=== PATIENT | female | born 1935 | race Caucasian/White ===

== ENCOUNTER → 2016-12-17 | Outpatient (CLI) | payer OTHER, MEDICARE ==
[~2016-12-17] MED LIST: ACET600C PO; ALPR-412 PO; AMINTAB13 PO; ARTICHOKE PO; ASCO1CAP3 PO; B-COTAB18 PO; BIOT1TAB5 PO; BOSWELIA PO; BUTCHERS BROOM PO; CALC600T9 PO; CETI10TA84 PO; CHLO10CA7 PO; CHOLINE PO; COEN100C7 PO; COLL1CAP PO; CYAN500T13 PO; DICY10CA12 PO; DICY20TA10 PO; ESTER C PO; EYEBRIGHT PO; FOLIC ACID PO; GARL10007 PO; GINK60TA2 PO; GLUCOSAMINE PO; HAWTHORN PO; HRBLS PO; INOS500T PO; INULIN PO; LACT1CAP6 PO; LECITHIN PO; LUTE20TA PO; MAGNESIUM PO; MELATAB2 PO; MELO7.5T5 PO; METH-736 PO; MILK1CAP9 PO; MISCCAP77 PO; MISCTAB PO; MULT-506 PO; MULT-513 PO; OMEG10002 PO; OXYC-57 PO; PANT500T PO; POTASSIUM PO; PSEU30TA64 PO; PSEU60TA80 PO; PSYL1POW4 PO; PSYL28.310 PO; PSYL48.59 PO; PYRI100T4 PO; S AD PO; SELENIUM PEG; THYROID ENERGY PO; TURM500C2 PO; VITACAP37 PO; VITAMIN D3 PO; VNTHFA/IN INH; [UNRECOGNIZED DRUG - CODE] PO; [UNRECOGNIZED DRUG - CODE] PO; [UNRECOGNIZED DRUG - CODE] PO; [UNRECOGNIZED DRUG - OTHER] PO; [UNRECOGNIZED DRUG - OTHER] PO; [UNRECOGNIZED DRUG - OTHER] PO; [UNRECOGNIZED DRUG - OTHER] PO
== END | disposition home or self-care (01) ==
LOC: C.LABSPEC 11:57
PROVIDERS: ATTEND Internal Medicine
DX: N39.0 Urinary tract infection, site not specified (principal)

== ENCOUNTER → 2017-01-17 | Outpatient (CLI) | payer OTHER, MEDICARE | END | disposition home or self-care (01) | LOC: C.PAPS 15:12 | PROVIDERS: ATTEND Internal Medicine | DX: Z12.4 Encounter for screening for malignant neoplasm of cervix (principal) ==

== ENCOUNTER → 2017-01-20 | Outpatient (CLI) | payer OTHER, MEDICARE | END | disposition home or self-care (01) | LOC: C.LABSPEC 12:34 | PROVIDERS: ATTEND Internal Medicine | DX: Z12.11 Encounter for screening for malignant neoplasm of colon (principal) ==

== ENCOUNTER 2017-01-26 15:07 | Emergency (ER) | payer OTHER, MEDICARE ==
[~2017-01-26] VITALS: Ht 157.5 cm; Wt 73.8 kg
[~2017-01-26 15:07] MED LIST changes: -ACET600C PO; -ALPR-412 PO; -AMINTAB13 PO; -ARTICHOKE PO; -ASCO1CAP3 PO; -B-COTAB18 PO; -BIOT1TAB5 PO; -BOSWELIA PO; -BUTCHERS BROOM PO; -CALC600T9 PO; -CHLO10CA7 PO; -CHOLINE PO; -COEN100C7 PO; -COLL1CAP PO; -CYAN500T13 PO; -DICY10CA12 PO; -ESTER C PO; -EYEBRIGHT PO; -FOLIC ACID PO; -GARL10007 PO; -GINK60TA2 PO; -GLUCOSAMINE PO; -HAWTHORN PO; -HRBLS PO; -INOS500T PO; -INULIN PO; -LACT1CAP6 PO; -LECITHIN PO; -LUTE20TA PO; -MAGNESIUM PO; -MELATAB2 PO; -METH-736 PO; -MILK1CAP9 PO; -MISCCAP77 PO; -MISCTAB PO; -MULT-506 PO; -MULT-513 PO; -OMEG10002 PO; -OXYC-57 PO; -PANT500T PO; -POTASSIUM PO; -PSEU30TA64 PO; -PSEU60TA80 PO; -PSYL28.310 PO; -PSYL48.59 PO; -PYRI100T4 PO; -S AD PO; -SELENIUM PEG; -THYROID ENERGY PO; -TURM500C2 PO; -VITACAP37 PO; -VITAMIN D3 PO; -VNTHFA/IN INH; -[UNRECOGNIZED DRUG - CODE] PO; -[UNRECOGNIZED DRUG - CODE] PO; -[UNRECOGNIZED DRUG - CODE] PO; -[UNRECOGNIZED DRUG - OTHER] PO; -[UNRECOGNIZED DRUG - OTHER] PO; -[UNRECOGNIZED DRUG - OTHER] PO; -[UNRECOGNIZED DRUG - OTHER] PO
[2017-01-26 15:22] VITALS: TEMP 37; Ht 157.5 cm; Wt 73.8 kg
--- NOTE | 2017-01-26 17:08 | EMERGENCY ROOM VISIT NOTE ---
History Report prepared by Kings: Mady Perez Under the Supervision of: Dr. Nate Jennings M.D. First contact with patient: 16:49 Chief Complaint: ABDOMINAL PAIN Stated Complaint: LOWER ABD. PAIN Nursing Triage Summary: reports I have a hernia and icreased pain and bloating started today at noon, denies NV History of Present Illness The patient is an 81 year old female who presents to the Emergency Room with complaints of worsening abdominal pain with onset today, five hours ago. She rates her discomfort as a 7/10. The patient notes that she has a femoral hernia and is concerned that the abdominal pain could be due to the hernia. She relates that she has a history of Irritable Bowel Syndrome and states that this abdominal pain could be related to this. The patient denies vomiting, fevers, blood in her stool, diarrhea. Source of History: patient Onset: 5 hours ago Position: abdomen Quality: other (abdominal pain) Timing: worsening Associated Symptoms: No diarrhea, No fevers, No melena, No vomiting Review of Systems See HPI for pertinent positives & negatives. A total of 10 systems reviewed and were otherwise negative. Past Medical & Surgical Medical Problems: (1) Cystocele (2) IBS (irritable bowel syndrome) (3) partial SBO Family History No pertinent family history Social History Smoking Status: Never Smoker Marital Status: Housing Status: lives with family Occupation Status: retired Current/Historical Medications Scheduled Cetirizine (Zyrtec), 10 MG PO DAILY Dicyclomine Hcl (Dicyclomine Hcl), 1 CAP PO BID Herbals (Herbals), Unknown Dose PO DAILY Lactobacillus (Probiotic), 1 CAP PO DAILY Multivitamins/Minerals (Mvi With Minerals), 1 TAB PO DAILY Psyllium (Metamucil Smooth Texture), 1 PKT PO DAILY Scheduled PRN Meloxicam (Mobic), 15 MG PO DAILY PRN for Pain Pseudoephedrine-Guaifenesin (Mucinex D), 1 TAB PO BID PRN for CONGESTION Allergies Coded Allergies: Gluten (Verified Allergy, Mild, GI ISSUES, 01/26/17) Lactose (Verified Allergy, Unknown, GI ISSUES, 01/26/17) Physical Exam Vital Signs Date Time Temp Pulse Resp B/P Pulse Ox O2 Delivery O2 Flow Rate FiO2 01/26/17 18:02 66 16 129/74 97 01/26/17 16:58 77 18 143/76 95 Room Air 01/26/17 15:22 37.0 77 18 166/95 95 Room Air Physical Exam GENERAL: Smiling, in mild distress, uncomfortable appearing. HEENT: No acute trauma, normocephalic atraumatic, mucous membranes moist, no nasal congestion, no scleral icterus. NECK: No stridor, no adenopathy, no meningismus, trachea is midline. LUNGS: No dyspnea. Clear to auscultation and equal bilaterally. No wheeze, no rhonchi. HEART: Regular rate and rhythm. No murmurs, rubs, gallops appreciated. ABDOMEN: Soft, bowel sounds positive, no peritonitis. Firm right inguinal hernia with tenderness to palpation, no overlying erythema, reduced with mild difficulty and complete resolution of symptoms. BACK: No midline tenderness, no CVA tenderness EXTREMITIES: Normal motion all extremities, no cyanosis, no edema. NEUROLOGIC: Alert and oriented, no acute motor or sensory deficits, no focal weakness, cranial nerves grossly intact. SKIN: No rash, no jaundice, no diaphoresis. Medical Decision & Procedures ER Provider Diagnostic Interpretation: X ray results are stated below per my interpretation and the radiologist's interpretation. ABDOMEN 2VIEW W/PA CHEST RTN CLINICAL HISTORY: right fem hernia pain, now resolved, minimal BMs pain COMPARISON STUDY: 10/02/2016 FINDINGS: Lungs are clear. Bowel pattern is nonobstructive. Increased fecal load throughout the ascending and transverse colonic regions. Multiple pelvic vascular calcifications. IMPRESSION: 1. Nonobstructive bowel pattern. 2. Increased fecal load throughout the colon. 3. Negative chest. Electronically signed by: Neptali Loza M.D. 01/26/2017 5:28 PM Dictated Date/Time: 01/26/2017 5:28 PM ED Course 1652: The patient was evaluated in room A11. A complete history and physical exam was performed. 1735: I reevaluated the patient; she feels fine and is having no pain. She asked me to call Dr. Kendrick, her PCP, to let him know that she was evaluated in the ED. 1740: I discussed the case with Dr. Kendrick ([facility]); he advised that the patient can go home. 1745: Reevaluated the patient. Discussed results and discharge instructions: She verbalized understanding and agreement. The patient is ready for discharge. Medical Decision 81 yr old female arrives with right lower abdominal pain with return of recurrent inguinal/femoral hernia. Admits hernia stuck last 12-24 hours. With Trendelenburg position able to easily reduce hernia without need for pain meds. No further symptoms. No evidence obstruction on imaging. No blood in stool. No further symptoms. She is feeling well and wishes to go home. PCP aware and will help facilitate gen surg eval. Discussed home care and symptoms/ findings requiring return. Consults Time Called: 1735 Consulting Physician: Dr. Kendrick ([facility]) Returned Call: 1740 I discussed the case with Dr. Kendrick ([facility]); he advised that the patient can go home. Impression Primary Impression: Reducible right inguinal hernia Additional Impression: Recurrent right inguinal hernia Scribe Attestation The scribe's documentation has been prepared under my direction and personally reviewed by me in its entirety. I confirm that the note above accurately reflects all work, treatment, procedures, and medical decision making performed by me. Departure Information Dispostion Home / Self-Care Referrals Luis Champion M.D. (PCP) Patient Instructions ED Hernia Inguinal, My [facility] Additional Instructions Follow up with your Primary Provider tomorrow to discuss further plans. Problem Qualifiers
[2017-01-26] MEDS ORDERED: PSEU60TA80 PO (17:11)
[2017-01-26] MEDS ORDERED: MULT-513 PO (17:11)
[2017-01-26] MEDS ORDERED: DICY10CA12 PO (17:11)
[2017-01-26] MEDS ORDERED: PSYL28.310 PO (17:11)
[2017-01-26] MEDS ORDERED: HRBLS PO (17:11)
[2017-01-26] MEDS ORDERED: LACT1CAP6 PO (17:11)
--- NOTE | 2017-01-26 17:30 | DIAGNOSTIC IMAGING REPORT ---
ABDOMEN 2VIEW W/PA CHEST RTN CLINICAL HISTORY: right fem hernia pain, now resolved, minimal BMs pain COMPARISON STUDY: 10/02/2016 FINDINGS: Lungs are clear. Bowel pattern is nonobstructive. Increased fecal load throughout the ascending and transverse colonic regions. Multiple pelvic vascular calcifications. IMPRESSION: 1. Nonobstructive bowel pattern. 2. Increased fecal load throughout the colon. 3. Negative chest. Electronically signed by: Neptali Loza M.D. 01/26/2017 5:28 PM Dictated Date/Time: 01/26/2017 5:28 PM
[2017-01-26 18:02] VITALS: BP 129/74; PULSE 66; O2SAT 97
[2017-02-13] MEDS ORDERED: MULT-506 PO (09:21)
[2017-02-13] MEDS ORDERED: [UNRECOGNIZED DRUG - CODE] PO (09:21)
[2017-02-13] MEDS ORDERED: B-COTAB18 PO (09:21)
[2017-02-13] MEDS ORDERED: CYAN500T13 PO (09:21)
[2017-02-13] MEDS ORDERED: PYRI100T4 PO (09:21)
[2017-02-13] MEDS ORDERED: VITACAP37 PO (09:24)
[2017-02-13] MEDS ORDERED: CHOLINE PO (09:24)
[2017-02-13] MEDS ORDERED: ASCO1CAP3 PO (09:24)
[2017-02-13] MEDS ORDERED: BIOT1TAB5 PO (09:24)
[2017-02-13] MEDS ORDERED: ESTER C PO (09:24)
[2017-02-13] MEDS ORDERED: VITAMIN D3 PO (09:24)
[2017-02-13] MEDS ORDERED: INOS500T PO (09:25)
[2017-02-13] MEDS ORDERED: FOLIC ACID PO (09:25)
[2017-02-13] MEDS ORDERED: PANT500T PO (09:25)
[2017-02-13] MEDS ORDERED: BOSWELIA PO (09:29)
[2017-02-13] MEDS ORDERED: SELENIUM PEG (09:29)
[2017-02-13] MEDS ORDERED: ARTICHOKE PO (09:29)
[2017-02-13] MEDS ORDERED: CALC600T9 PO (09:29)
[2017-02-13] MEDS ORDERED: BUTCHERS BROOM PO (09:29)
[2017-02-13] MEDS ORDERED: [UNRECOGNIZED DRUG - OTHER] PO (09:29)
[2017-02-13] MEDS ORDERED: MAGNESIUM PO (09:29)
[2017-02-13] MEDS ORDERED: POTASSIUM PO (09:29)
[2017-02-13] MEDS ORDERED: AMINTAB13 PO (09:29)
[2017-02-13] MEDS ORDERED: COEN100C7 PO (09:30)
[2017-02-13] MEDS ORDERED: TURM500C2 PO (09:30)
[2017-02-13] MEDS ORDERED: [UNRECOGNIZED DRUG - CODE] PO (09:30)
[2017-02-13] MEDS ORDERED: MISCTAB PO (09:30)
[2017-02-13] MEDS ORDERED: [UNRECOGNIZED DRUG - OTHER] PO (09:34)
[2017-02-13] MEDS ORDERED: GLUCOSAMINE PO (09:34)
[2017-02-13] MEDS ORDERED: GINK60TA2 PO (09:34)
[2017-02-13] MEDS ORDERED: HAWTHORN PO (09:34)
[2017-02-13] MEDS ORDERED: COLL1CAP PO (09:34)
[2017-02-13] MEDS ORDERED: GARL10007 PO (09:34)
[2017-02-13] MEDS ORDERED: OMEG10002 PO (09:34)
[2017-02-13] MEDS ORDERED: EYEBRIGHT PO (09:34)
[2017-02-13] MEDS ORDERED: INULIN PO (09:39)
[2017-02-13] MEDS ORDERED: MISCCAP77 PO (09:39)
[2017-02-13] MEDS ORDERED: MILK1CAP9 PO (09:39)
[2017-02-13] MEDS ORDERED: METH-736 PO (09:39)
[2017-02-13] MEDS ORDERED: LECITHIN PO (09:39)
[2017-02-13] MEDS ORDERED: LUTE20TA PO (09:39)
[2017-02-13] MEDS ORDERED: ACET600C PO (09:39)
[2017-02-13] MEDS ORDERED: MELATAB2 PO (09:39)
[2017-02-13] MEDS ORDERED: [UNRECOGNIZED DRUG - OTHER] PO (09:39)
[2017-02-13] MEDS ORDERED: [UNRECOGNIZED DRUG - OTHER] PO (09:40)
[2017-02-13] MEDS ORDERED: [UNRECOGNIZED DRUG - CODE] PO (09:40)
[2017-02-13] MEDS ORDERED: S AD PO (09:40)
[2017-02-13] MEDS ORDERED: PSEU30TA64 PO (09:44)
[2017-02-13] MEDS ORDERED: ALPR-412 PO (09:44)
[2017-02-13] MEDS ORDERED: CHLO10CA7 PO (09:44)
[2017-02-13] MEDS ORDERED: PSYL48.59 PO (09:44)
[2017-02-13] MEDS ORDERED: VNTHFA/IN INH (09:50)
== END 2017-01-26 17:52 | disposition home or self-care (01) ==
LOC: C.EDB 15:08 → C.EDA 17:52
DX: K40.91 Unilateral inguinal hernia, without obstruction or gangrene, recurrent (principal); K58.9 Irritable bowel syndrome, unspecified; Z79.899 Other long term (current) drug therapy

== ENCOUNTER → 2017-02-10 | Outpatient (CLI) | payer OTHER, MEDICARE ==
[~2017-02-10] MED LIST changes: +ACET600C PO; +ALPR-412 PO; +AMINTAB13 PO; +ARTICHOKE PO; +ASCO1CAP3 PO; +B-COTAB18 PO; +BIOT1TAB5 PO; +BOSWELIA PO; +BUTCHERS BROOM PO; +CALC600T9 PO; +CHLO10CA7 PO; +CHOLINE PO; +COEN100C7 PO; +COLL1CAP PO; +CYAN500T13 PO; +DICY10CA12 PO; -DICY20TA10 PO; +ESTER C PO; +EYEBRIGHT PO; +FOLIC ACID PO; +GARL10007 PO; +GINK60TA2 PO; +GLUCOSAMINE PO; +HAWTHORN PO; +HRBLS PO; +INOS500T PO; +INULIN PO; +LACT1CAP6 PO; +LECITHIN PO; +LUTE20TA PO; +MAGNESIUM PO; +MELATAB2 PO; +METH-736 PO; +MILK1CAP9 PO; +MISCCAP77 PO; +MISCTAB PO; +MULT-506 PO; +MULT-513 PO; +OMEG10002 PO; +OXYC-57 PO; +PANT500T PO; +POTASSIUM PO; +PSEU30TA64 PO; +PSEU60TA80 PO; -PSYL1POW4 PO; +PSYL28.310 PO; +PSYL48.59 PO; +PYRI100T4 PO; +S AD PO; +SELENIUM PEG; +THYROID ENERGY PO; +TURM500C2 PO; +VITACAP37 PO; +VITAMIN D3 PO; +VNTHFA/IN INH; +[UNRECOGNIZED DRUG - CODE] PO; +[UNRECOGNIZED DRUG - CODE] PO; +[UNRECOGNIZED DRUG - CODE] PO; +[UNRECOGNIZED DRUG - OTHER] PO; +[UNRECOGNIZED DRUG - OTHER] PO; +[UNRECOGNIZED DRUG - OTHER] PO; +[UNRECOGNIZED DRUG - OTHER] PO
--- NOTE | 2017-02-10 14:01 | MAMMOGRAPHY REPORT ---
BILATERAL DIGITAL DIAGNOSTIC MAMMOGRAM TOMOSYNTHESIS WITH CAD AND TARGETED LEFT ULTRASOUND: 02/10/2017 CLINICAL HISTORY: 81-year-old woman presents for follow-up of a small subcentimeter visible and palp able mass in the 11:00 to 12:00 left breast. Also annual bilateral screening mammogram. TECHNIQUE: Bilateral CC and MLO 2-D digital and tomosynthesis images were obtained. Current study w as also evaluated with a Computer Aided Detection (CAD) system. COMPARISON: Comparison is made to exams dated: 08/26/2016 mammogram, 08/26/2016 ultrasound, 02/23/20 16 ultrasound, 02/16/2016 ultrasound, 02/16/2016 mammogram, and 02/07/2016 mammogram - [facility]. BREAST COMPOSITION: There are scattered areas of fibroglandular density in both breasts. FINDINGS: There are scattered stable benign-appearing rounded punctate microcalcifications in the br easts. A 7 mm asymmetry in the upper outer middle one third of the left breast appears similar dati ng back to at least 01/25/2013 and 01/17/2011, therefore likely benign. A small circumscribed lobul ated 7.4 x 6.3 x 7.4 mm mass is again identified in the upper outer middle one third of the left favian ast (CC slice 41, MLO slice 46), that has not significantly changed comparing to the prior exam. No new suspicious mass, architectural distortion or cluster of microcalcifications is seen bilaterally . Repeat targeted ultrasound was performed in the area of palpable and visible mass in the 11:00 left breast. A parallel slightly hypoechoic lobulated subdermal mass is again seen measuring 6.4 x 2.4 x 4.2 mm. When comparing back to the 02/16/2016 ultrasound it appears minimally changed, although th is could be due to technical measuring technique. Prior measurements were 5.9 x 4.9 mm. No other s uspicious solid or cystic mass is seen in the upper outer quadrant of the left breast. IMPRESSION: ACR-BI-RADS CATEGORY 3: PROBABLY BENIGN, TARGETED ULTRASOUND ACR-BI-RADS CATEGORY 3: [place] OBABLY BENIGN 1. Stable bilateral mammograms, including a 6.3 x 7.4 mm lobulated mass in the left upper outer coy drant, which correlates with a visible and palpable mass that the patient has felt for a number of y ears. Given slight differences in technique, this does not appear significantly increased in size c omparing back to 02/16/2016 and this most likely benign. Differential considerations include a vasc ular malformation such as a hemangioma or a papilloma. Nevertheless, another 12 month diagnostic fo llow-up is recommended given the slight interval increase comparing back to more remote mammograms f rom 2008. These results and recommendations were discussed with the patient at the time of the exam. She tent atively scheduled a follow-up appointment prior to leaving the department. Approximately 10% of breast cancers are not detected with mammography. A negative mammographic repor t should not delay biopsy if a clinically suggestive mass is present. Natalie Luz M.D. ay/:02/10/2017 12:46:47 Fitting Room Maintenance Mechanic: Eleonora Eckert, [facility] letter sent: Follow Up Recommended 3 BI-RADS Code: ACR-BI-RADS Category 3: Probably Benign Ultrasound BI-RADS: ACR-BI-RADS Category 3: P robably Benign
== END | disposition home or self-care (01) ==
LOC: C.MAMM 09:39
PROVIDERS: ATTEND Internal Medicine
DX: Z09 Encounter for follow-up examination after completed treatment for conditions other than malignant neoplasm (principal); N63 Unspecified lump in breast

== ENCOUNTER 2017-02-27 07:05 | Day surgery (SDC) | payer OTHER, MEDICARE ==
[2017-02-13 09:46] VITALS: BMI 29.0
--- NOTE | 2017-02-13 10:09 | PAT Medication Instructions ---
Service Date Feb 13, 2017. Current Home Medication List Acetylcysteine (Nutrient) (Nac), 600 MG PO QAM Albuterol Hfa (Ventolin Hfa), 2-4 PUFFS INH Q6H Alprazolam (Alprazolam), 1 TAB PO HS Amino Acids (Amino Acids Complex), 1,000 MG PO QAM Ascorbic Acid (Vitamin C), 500 MG PO QAM B-Complex Vitamins (Vitamin B Complex), 1 TAB PO QPM Beta Carotene (Beta Carotene), 15,000 UNITS PO QAM Bioflavonoids ([place] Bioflavonoids), 1,000 MG PO QAM Biotin (Biotin), 1,500 MCG PO QAM Calcium Carbonate-Vitamin D (Calcium + D), 1 TAB PO BID Cetirizine (Zyrtec), 10 MG PO HS Chlordiazepoxide (Librium), 10 MG PO TID PRN for RN Coenzyme Q10 (Ubidecarenone) (Coq10), 100 MG PO QPM Maebkayf-Sxuyprtrjoq-Peqstecou (Hyaluronic Acid), 200 MG PO BID Cyanocobalamin (Vitamin B12 500MCG), 500 MCG PO QAM Dicyclomine Hcl (Dicyclomine Hcl), 1 CAP PO BID Garlic (Garlic), 1,000 MG PO BID Ginkgo Biloba (Ginkgo), 60 MG PO BID Inositol (Inositol), 500 MG PO QPM Lutein (Lutein), 20 MG PO QAM Melatonin (Melatonin Maximum Strengt), 10 MG PO HS Meloxicam (Mobic), 15 MG PO DAILY PRN for Pain Methylsulfonylmethane (Msm), 1,000 MG PO QAM Milk Thistle (Silybum Marianum (Milk Thistle), 1,000 MG PO BID Misc Natural Products (Dmg), 200 MG PO QAM Multivitamin (Multivitamin), 1 TAB PO QPM [place]-3 Fatty Acids (Fish Oil), 1,000 MG PO BID Pantothenic Acid (Pantothenic Acid), 500 MG PO QPM Probiotic Product (Probiotic & Acidophilus F), 1,000 MG PO BID Pseudoephedrine Hcl (Sudafed), 30 MG PO QAM Psyllium (Metamucil), 1 DOSE PO QPM Pyridoxine (Vitamin B6), 50 MG PO QAM Quercetin (Quercetin), 1,000 MG PO QAM S-Adenosylmethionine (Juan-E), 400 MG PO QAM Turmeric (Curcuma Longa) (Curcumin 95), 500 MG PO BID Vitamin E (E-400), 400 UNITS PO QPM [Aakd], 3,000 MCG PO QAM [Artichoke], 1 TAB PO BID [Boswelia], 500 MG PO BID [Butchers Broom], 500 MG PO BID [Choline], 250 MG PO QPM [Enzymes For Gluten], 1 TAB PO TIDM [Isabel C], 500 MG PO QAM [Eyebright], 500 MG PO BID [Folic Acid], 400 MCG PO QAM [Glucosamine], 750 MG PO BID [Marion], 500 MG PO BID [Inulin], 5 ML PO DAILY [Lecithin], 400 MG PO BID [Magnesium], 250 MG PO BID [Mesoglycan], 1 TAB PO DAILY [Potassium], 99 MG PO BID [Selenium], 200 MCG PEG QPM [Vein Straughn], 500 MG PO BID [Vitamin D3], 400 UNITS PO QAM Medication Instructions For Your Scheduled Surgery - Hold the following medications 2 weeks prior to surgery: S-Adenosylmethionine (Juan-E), 400 MG PO QAM Turmeric (Curcuma Longa) (Curcumin 95), 500 MG PO BID Vitamin E (E-400), 400 UNITS PO QPM [Aakd], 3,000 MCG PO QAM [Artichoke], 1 TAB PO BID [Boswelia], 500 MG PO BID [Butchers Broom], 500 MG PO BID [Choline], 250 MG PO QPM [Enzymes For Gluten], 1 TAB PO TIDM [Isabel C], 500 MG PO QAM [Eyebright], 500 MG PO BID [Glucosamine], 750 MG PO BID [Marion], 500 MG PO BID [Inulin], 5 ML PO DAILY [Lecithin], 400 MG PO BID [Mesoglycan], 1 TAB PO DAILY [Selenium], 200 MCG PEG QPM [Vein Straughn], 500 MG PO BID Quercetin (Quercetin), 1,000 MG PO QAM Coenzyme Q10 (Ubidecarenone) (Coq10), 100 MG PO QPM Bioflavonoids ([place] Bioflavonoids), 1,000 MG PO QAM Biotin (Biotin), 1,500 MCG PO QAM Acetylcysteine (Nutrient) (Nac), 600 MG PO QAM Jyxehhrb-Vqpgmapedge-Boftvqitm (Hyaluronic Acid), 200 MG PO BID Garlic (Garlic), 1,000 MG PO BID Ginkgo Biloba (Ginkgo), 60 MG PO BID Amino Acids (Amino Acids Complex), 1,000 MG PO QAM Methylsulfonylmethane (Msm), 1,000 MG PO QAM Milk Thistle (Silybum Marianum (Milk Thistle), 1,000 MG PO BID Misc Natural Products (Dmg), 200 MG PO QAM [place]-3 Fatty Acids (Fish Oil), 1,000 MG PO BID Pantothenic Acid (Pantothenic Acid), 500 MG PO QPM Inositol (Inositol), 500 MG PO QPM Lutein (Lutein), 20 MG PO QAM Cyanocobalamin (Vitamin B12 500MCG), 500 MCG PO QAM - Hold the following medications the morning of surgery: [Vitamin D3], 400 UNITS PO QAM [Potassium], 99 MG PO BID [Magnesium], 250 MG PO BID [Folic Acid], 400 MCG PO QAM Pyridoxine (Vitamin B6), 50 MG PO QAM Probiotic Product (Probiotic & Acidophilus F), 1,000 MG PO BID Ascorbic Acid (Vitamin C), 500 MG PO QAM Beta Carotene (Beta Carotene), 15,000 UNITS PO QAM Calcium Carbonate-Vitamin D (Calcium + D), 1 TAB PO BID Pseudoephedrine Hcl (Sudafed), 30 MG PO QAM Dicyclomine Hcl (Dicyclomine Hcl), 1 CAP PO BID Meloxicam (Mobic), 15 MG PO DAILY PRN for Pain (otherwise okay to continue per surgeon) - Take the following medications the morning of surgery with a sip of water OTHERWISE NOTHING TO EAT OR DRINK AFTER MIDNIGHT: Albuterol Hfa (Ventolin Hfa), 2-4 PUFFS INH Q6H (use if needed; BRING TO HOSPITAL) Chlordiazepoxide (Librium), 10 MG PO TID PRN - Take the following medications as scheduled the night before surgery: [Potassium], 99 MG PO BID B-Complex Vitamins (Vitamin B Complex), 1 TAB PO QPM Alprazolam (Alprazolam), 1 TAB PO HS Calcium Carbonate-Vitamin D (Calcium + D), 1 TAB PO BID Cetirizine (Zyrtec), 10 MG PO HS Psyllium (Metamucil), 1 DOSE PO QPM Albuterol Hfa (Ventolin Hfa), 2-4 PUFFS INH Q6H Multivitamin (Multivitamin), 1 TAB PO QPM Melatonin (Melatonin Maximum Strengt), 10 MG PO HS Dicyclomine Hcl (Dicyclomine Hcl), 1 CAP PO BID Chlordiazepoxide (Librium), 10 MG PO TID PRN Meloxicam (Mobic), 15 MG PO DAILY PRN for Pain If you have any questions please call us at [phone] or [phone] or [phone]
[2017-02-13 10:50] LABS: BASO % 0.7 %; BASO ABS # 0.04 K/uL (0-0.2); COMPLETE YES; EOS % 4.3 %; HEMATOCRIT 37.7 % (37-47); IG% 0.2 %; LYMPH ABS # 2.05 K/uL (1.2-3.4); MEAN CELL VOLUME 94.3 fL (80-100); MEAN CORPUSCULAR HEMOGLOBIN 31.8 pg (25-34); MEAN CORPUSCULAR HGB CONC 33.7 g/dl (32-36); MEAN PLATELET VOLUME 11.1 fL (7.4-10.4); NEUT % 53.8 %; PLATELET COUNT 232 K/uL (130-400); WHITE BLOOD COUNT 6.03 K/uL (4.8-10.8)
[2017-02-13 11:34] LABS: BUN/CREATININE RATIO 43.3 (10-20); CALCIUM 9.9 mg/dl (8.5-10.1); CREATININE 0.81 mg/dl (0.60-1.20); POTASSIUM 5.1 mmol/L (3.5-5.1)
[~2017-02-27] VITALS: Ht 157.5 cm; Wt 73.5 kg
[~2017-02-27 07:05] MED LIST changes: +FENTANYL CITRATE INJ 50 MCG/1 ML 2 ML VIAL ONE; -HRBLS PO; -LACT1CAP6 PO; +LACTATED RINGER'S 1000ML 1,000 ML IV SCH; +MIDAZOLAM HCL 1 MG/ML 2ML VIAL ONE; -MULT-513 PO; -OXYC-57 PO; -PSEU60TA80 PO; -PSYL28.310 PO; -THYROID ENERGY PO
[2017-02-27] MEDS ORDERED: BACITRACIN 50000 UNIT VIAL ONE (07:10)
[2017-02-27] MEDS ORDERED: BUPIVACAINE 0.5 % 5 MG/1 ML MPF 30ML VIAL ONE ×2 (07:10→09:03)
[2017-02-27 08:09] VITALS: BP 149/72; PULSE 69; TEMP 36.6; O2SAT 97; Ht 157.5 cm; Wt 73.5 kg
--- NOTE | 2017-02-27 08:17 | History & Physical Bridge Note ---
H&P Re-Evaluation Bridge Note: I have examined the patient, reviewed the History & Physical and in the interval since the performance of the History & Physical I have noted the following changes of clinical significance: No changes noted pt marked, friend will be here later to pick her up
[2017-02-27] MEDS ORDERED: LIDOCAINE HCL 2% 2 ML VIAL (20MG/ML) ONE (08:24)
[2017-02-27] MEDS ORDERED: PROPOFOL IV EMULSION 10 MG/ML 20 ML VIAL IV ONE (08:24)
[2017-02-27] MEDS ORDERED: ATROPINE SULFATE 0.1 MG/ML 5ML SYR IV PRN (08:30)
[2017-02-27] MEDS ORDERED: PHENYLEPHRINE 100MCG/ML 5ML SYR IV PRN (08:30)
[2017-02-27] MEDS ORDERED: EpHEDrine SULFATE INJ 50 MG/ML AMP IV PRN (08:30)
[2017-02-27] MEDS ORDERED: HYDROmorphone INJ 2 MG/ML SYR/VIAL IV PRN (08:30)
[2017-02-27] MEDS ORDERED: ONDANSETRON INJ 2 MG/ML 2 ML VIAL IV PRN ×2 (08:30→09:45)
[2017-02-27] MEDS ORDERED: CEFAZOLIN SOD 1 GM VIAL ONE (08:58)
[2017-02-27] MEDS ORDERED: SODIUM CHLORIDE 0.9% 1000ML 1,000 ML IV SCH (09:39)
--- NOTE | 2017-02-27 09:40 | [facility] Post Operative Brief Note ---
Immediate Operative Summary Operative Date Feb 27, 2017. Pre-Operative Diagnosis Right Femoral Hernia Post-Operative Diagnosis Right incarcerated femoral hernia Procedure(s) Performed Right femoral hernia repair with Mesh marlex(plug) Lew Geronimo repair Surgeon Dr Whitten Grain Cleaner And Transfer Operator Surgeon(s) Radha Abbott PA-C Estimated Blood Loss 5ml Findings incarcerated right fem hernia Specimens A. Right incarcerated femoral hernia Anesthesia .5% marcaine plai (10cc) and iv sedation
[2017-02-27] MEDS ORDERED: OXYC-57 PO (09:42)
[2017-02-27] MEDS ORDERED: OXYCODONE/ACETAMINOPHEN 5-325 TAB PO PRN ×2 (09:45)
--- NOTE | 2017-02-27 09:46 | Discharge Instructions ---
Discharge Instructions Date of Service Feb 27, 2017. Admission Reason for Admission: Femoral Hernia Discharge Discharge Diagnosis / Problem: Femoral Hernia. Discharge Goals Goal(s): Decrease discomfort, Improve function Activity Recommendations Activity Limitations: as noted below Lifting Limitations: no more than 10 pounds Exercise/Sports Limitations: until after follow-up appointment May Resume Sexual Activity: after follow-up appointment Shower/Bathe: tomorrow Driving or Machine Use: resume 3 days after discharge . Instructions / Follow-Up Instructions / Follow-Up Please call the office to schedule an appointment to have your christoph removed in 1 week at [phone]. Any questions or concerns please call the office at [phone]. Current Hospital Diet Patient's current hospital diet: Discharge Diet Recommended Diet: Regular Diet Procedures Procedures Performed: Right femoral hernia repair with Mesh marlex(plug) Mc Vay repair Pending Studies Studies pending at discharge: no Medical Emergencies . Who to Call and When: Medical Emergencies: If at any time you feel your situation is an emergency, please call 911 immediately. . Non-Emergent Contact Non-Emergency issues call your: Primary Care Provider, Surgeon Call Non-Emergent contact if: temperature is above 101.5, your pain is not controlled, wound has increased drainage, wound has increased redness . "Provider Documentation" section prepared by Radha Abbott. . VTE Core Measure Inpt VTE Proph given/why not?: SCD's
--- NOTE | 2017-02-27 09:54 | Anesthesiology Progress Note ---
Anesthesia Post Op Note Date & Time Feb 27, 2017 at 09:53 Vital Signs Pain Intensity: 0 Vital Signs Past 12 Hours Date Time Temp Pulse Resp B/P Pulse Ox O2 Delivery O2 Flow Rate FiO2 02/27/17 09:45 68 17 125/64 95 Room Air 02/27/17 09:37 36.9 69 14 131/61 98 Mask 10 02/27/17 08:09 36.6 69 20 149/72 97 Room Air Notes Mental Status: alert / awake / arousable, participated in evaluation Pt Amnestic to Procedure: Yes Nausea / Vomiting: adequately controlled Pain: adequately controlled Airway Patency, RR, SpO2: stable & adequate BP & HR: stable & adequate Hydration State: stable & adequate Anesthetic Complications: no major complications apparent Pt doing well.
[2017-02-27 10:00] VITALS: BP 118/57; PULSE 64; TEMP 36.3; O2SAT 98
--- NOTE | 2017-02-27 10:19 | OPERATIVE REPORT ---
DATE OF OPERATION: 02/27/2017 SURGEON: Dr. Whitten. BUTADIENE COMPRESSOR OPERATOR: Radha Abbott PA-C. PREOPERATIVE DIAGNOSIS: Incarcerated right femoral hernia. POSTOPERATIVE DIAGNOSIS: Same. PROCEDURE: Repair of incarcerated femoral hernia with Marlex mesh plug (Naveen repair). SUMMARY: The patient was brought into the operating room theater under IV sedation. The right groin area was prepped with Betadine scrubbing solution and properly draped. Systemic antibiotics were given. 0.5% Marcaine without epinephrine was used to infiltrate at the ilioinguinal area and underneath the external oblique. Therefore, more local was used just above the inguinal crease, sufficient enough to make about a 3-inch incision. We went through subcutaneous tissue, the patient had significant amount of redundant panniculus in that area with some prominent venous plexuses in the subcutaneous tissue, which we ligated with 2-0 silk. Then, we went on to the external oblique fascia right at the shelving portion area, we could identify the inguinal ligament. Tissue around that area and down in the fossa ovalis was dissected out, and the patient had a well-delineated golf size tissue that was consistent and coming through the femoral canal. I tried to reduce it completely but I was unable, therefore, we placed some hemostats and opened it up and we were in the femoral hernia, and distal to that, there was some incarcerated tissue that we resected. Once we had sufficiently removed this tissue, then I closed the hernial sac with a running chromic suture and returned it in the retroperitoneal area. At this point, I was able to identify Basim's ligament and also the shelving portion of the ligament. The defect was as expected in the appropriate area. I elected to take a sheet of Marlex mesh. We took 2 cm circular area, cut it out, centrally I placed a chromic suture, then placed this into the canal using the chromic suture to hold that while we then used 0 Prolene suture to close the defect in a Naveen type of fashion, taking bites of the Basim's ligament and shelving portion of the inguinal ligament. I only used about 2 sutures and that was apparently sufficient. The bites of the suture were all to incorporate part of the tip of this mesh that we had placed in there to keep it from moving. Once repair appeared to be satisfactory, I made a knot, tied the femoral canal too much. We then removed the chromic suture. The area was checked for hemostasis and appeared satisfactory. More local was used into the wound and the wound was closed with 3-0 Vicryl suture in a continuous fashion and christoph for skin edges. Dressing was applied. The procedure was tolerated well by the patient, was taken to recovery room in good condition. I attest to the content of the Intraoperative Record and any orders documented therein. Any exceptions are noted below. STEVEND
[2017-02-27 10:30] VITALS: BP 99/55; PULSE 61; TEMP 36.3; O2SAT 98
[2017-02-27 11:30] VITALS: BP 113/62; PULSE 64; TEMP 36.5; O2SAT 98
[2017-02-27 12:00] VITALS: BP 116/57; PULSE 67; TEMP 36.3; O2SAT 99
== END 2017-02-27 12:15 | disposition home or self-care (01) ==
LOC: C.ACU 07:05
PROVIDERS: ATTEND Surgery
DX: K41.30 Unilateral femoral hernia, with obstruction, without gangrene, not specified as recurrent (principal); H40.9 Unspecified glaucoma; Z87.891 Personal history of nicotine dependence; Z79.899 Other long term (current) drug therapy

== ENCOUNTER 2017-03-02 10:58 | Emergency (ER) | payer OTHER, MEDICARE ==
[~2017-03-02] VITALS: Ht 154.9 cm; Wt 75.0 kg
[~2017-03-02 10:58] MED LIST changes: -FENTANYL CITRATE INJ 50 MCG/1 ML 2 ML VIAL ONE; -LACTATED RINGER'S 1000ML 1,000 ML IV SCH; -MIDAZOLAM HCL 1 MG/ML 2ML VIAL ONE; +OXYC-57 PO
[2017-03-02 11:14] VITALS: TEMP 36.8; Ht 154.9 cm; Wt 75.0 kg
[2017-03-02] MEDS ORDERED: THYROID ENERGY PO (11:38)
--- NOTE | 2017-03-02 11:52 | DIAGNOSTIC IMAGING REPORT ---
RIGHT KNEE 3 VIEWS HISTORY: Right knee pain. COMPARISON: None. FINDINGS: There is no fracture or dislocation. Small knee effusion. Mild patellofemoral osteoarthritis. Small tricompartmental marginal osteophytes. No radiopaque foreign bodies. IMPRESSION: No fractures. Small knee effusion. Electronically signed by: Meng Evans M.D. 03/02/2017 11:50 AM Dictated Date/Time: 03/02/2017 11:49 AM
--- NOTE | 2017-03-02 12:37 | EMERGENCY ROOM VISIT NOTE ---
ED Visit Note First contact with patient: 11:31 Chief Complaint: RIGHT Knee Pain, Can't put Weight on it History of Present Illness: Patient is an 82-year-old female who presents to the emergency department this morning for evaluation of her RIGHT knee pain. She reports that on Friday while and bleeding down the steps, she noticed pain to the posterior aspect of the affected knee. She is had progressively worsening pain with ambulation over the last several days. Yesterday, she felt as though her knee twisted. Since then she has had worsening pain. This morning, she had so much pain that she was contacted EMS. She has increasing pain with relation. She denies any numbness or tingling into the distal tremor. She rates her current discomfort as a 3/10. Patient denies any hip pain, low back pain, ankle pain, for pain, loss of control bowel/ bladder, or saddle anesthesia. She has been using her Percocet for her recent RIGHT inguinal hernia repair with moderate relief of symptoms. Patient has an appointment with Dr. Lentz tomorrow in regards to the affected knee. Medications: Reviewed and discussed with the patient. Allergies: Gluten, lactose, NSAIDs PMH: No pertinent past medical history. SHx: Patient is an 82-year-old female who lives locally. ROS: All pertinent positive and negative review of systems are appropriately documented in the History of Present Illness. Physical Exam: VITAL SIGNS - Vital signs and nursing notes were reviewed. GENERAL - 82-year-old female appearing her stated age and in noticeable discomfort throughout the exam. MUSCULOSKELETAL - RIGHT knee with slight joint effusion. No erythema or ecchymosis. Mild tenderness to palpation appreciated over the lateral aspect of the affected joint. +3/5 strength appreciated RIGHT versus left secondary to patient discomfort. No posterior sag sign. RANGE OF MOTION: 90 Flexion with 0 Extension. PATELLAR APPREHENSION TEST: Unremarkable. VARUS/VALGUS STRESS: Lateral pain with medial force. NEUROLOGIC/VASCULAR - Neurovascularly intact distally with +3/5 dorsalis pedis pulses palpated bilaterally. Normal sensation to light and sharp touch appreciated distally. IMAGING: RIGHT KNEE 3 VIEWS HISTORY: Right knee pain. COMPARISON: None. FINDINGS: There is no fracture or dislocation. Small knee effusion. Mild patellofemoral osteoarthritis. Small tricompartmental marginal osteophytes. No radiopaque foreign bodies. IMPRESSION: No fractures. Small knee effusion. RIGHT LOWER EXTREMITY VENOUS DOPPLER HISTORY: Right leg pain. COMPARISON STUDY: None. FINDINGS: There is normal compressibility, flow, and augmentation within the right lower extremity deep venous system. IMPRESSION: No DVT within the right lower extremity ED Course: Patient was seen and evaluated by myself. X-ray had been obtained prior to my evaluation. Patient declines a think for pain in the emergency department. Ultrasound of the RIGHT lower extremity was pain and found be unremarkable. Imaging results were reviewed with the patient who acknowledges understanding. She was provided a knee immobilizer and walker for comfort. She feels much better and more stable on her knee. She has appointment tomorrow with orthopedic surgery. She'll keep this appointment. She was provided a prescription for Percocet No. 8 to be used for breakthrough pain and she will return for any changing or worsening symptoms. Patient discharged home in good condition. In the evaluation and treatment of this patient, the following differential diagnoses were considered: Patellar Fracture, Tibial Plateau Fracture, Distal Femur Fracture, ACL Injury, PCL Injury, Collateral Ligament Injury, Pes Anserine Bursitis, Maisonneuve Fracture. Impression: RIGHT Knee Pain Discharge Instructions: You have been treated in the Emergency Department for Knee Pain. You have been prescribed Percocet to be used for pain control. This is a narcotic medication. You cannot drive or consume alcohol while on this medicine. This medicine should only be used for pain that cannot be controlled with denm-yim-gfwlxlv pain medicines. For pain control, you can use the following yvzx-ygb-gkotinf medicines (if >12 yo): - Regular strength (325mg/tab) Tylenol (acetaminophen) 2 tabs every 4-6 hours as needed. Do not exceed 12 tablets in a 24 hour period. Avoid taking more than 4 grams (4000 mg) of Tylenol per day. This includes any other sources of acetaminophen you may take on a regular basis. - Regular strength (200 mg/tab) Advil (ibuprofen) 1-2 tabs every 4-6 hours as needed. Do not exceed a dose of 3200 mg per day. If this is a recent injury (<24 hrs), ice can be applied to the area of pain for the first 3 days to help decrease pain and inflammation. Ice massages can be performed by freezing water in a paper cup, peeling back the cup to expose the ice and then massaging over the affected area. Keep your appointment with your orthopedic surgeon tomorrow. Keep the knee brace in place until cleared by Orthopedics. Use the walker you have been provided to help with ambulation. Return to the Emergency Department if your current symptoms worsen despite treatment course outlined above. Problem List Medical Problems: (1) Cystocele Status: Resolved (2) IBS (irritable bowel syndrome) Status: Chronic Current/Historical Medications Scheduled Acetylcysteine (Nutrient) (Nac), 600 MG PO QAM Albuterol Hfa (Ventolin Hfa), 2-4 PUFFS INH Q6H Alprazolam (Alprazolam), 1 TAB PO HS Amino Acids (Amino Acids Complex), 1,000 MG PO QAM Ascorbic Acid (Vitamin C), 500 MG PO QAM B-Complex Vitamins (Vitamin B Complex), 1 TAB PO QPM Beta Carotene (Beta Carotene), 15,000 UNITS PO QAM Bioflavonoids ([place] Bioflavonoids), 1,000 MG PO QAM Biotin (Biotin), 1,500 MCG PO QAM Calcium Carbonate-Vitamin D (Calcium + D), 1 TAB PO BID Cetirizine (Zyrtec), 10 MG PO HS Coenzyme Q10 (Ubidecarenone) (Coq10), 100 MG PO QPM Ybtapudu-Lckrcmgmcoo-Uacanocyh (Hyaluronic Acid), 200 MG PO BID Cyanocobalamin (Vitamin B12 500MCG), 500 MCG PO QAM Dicyclomine Hcl (Dicyclomine Hcl), 1 CAP PO BID Ginkgo Biloba (Ginkgo), 60 MG PO BID Inositol (Inositol), 500 MG PO QPM Lutein (Lutein), 20 MG PO QAM Melatonin (Melatonin Maximum Strengt), 10 MG PO HS Methylsulfonylmethane (Msm), 1,000 MG PO QAM Milk Thistle (Silybum Marianum (Milk Thistle), 1,000 MG PO BID Misc Natural Products (Dmg), 200 MG PO QAM Multivitamin (Multivitamin), 1 TAB PO QPM [place]-3 Fatty Acids (Fish Oil), 1,000 MG PO BID Pantothenic Acid (Pantothenic Acid), 500 MG PO QPM Probiotic Product (Probiotic & Acidophilus F), 1,000 MG PO BID Pseudoephedrine Hcl (Sudafed), 30 MG PO QAM Psyllium (Metamucil), 1 DOSE PO QPM Pyridoxine (Vitamin B6), 50 MG PO QAM Quercetin (Quercetin), 1,000 MG PO QAM S-Adenosylmethionine (Juan-E), 400 MG PO QAM Turmeric (Curcuma Longa) (Curcumin 95), 500 MG PO BID Vitamin E (E-400), 400 UNITS PO QPM [Aakd], 3,000 MCG PO QAM [Artichoke], 1 TAB PO BID [Boswelia], 500 MG PO BID [Butchers Broom], 500 MG PO BID [Choline], 250 MG PO QPM [Enzymes For Gluten], 1 TAB PO TIDM [Isabel C], 500 MG PO QAM [Eyebright], 500 MG PO BID [Folic Acid], 400 MCG PO QAM [Glucosamine], 750 MG PO BID [[place]], 500 MG PO BID [Inulin], 5 ML PO DAILY [Lecithin], 400 MG PO BID [Magnesium], 250 MG PO BID [Mesoglycan], 1 TAB PO DAILY [Potassium], 99 MG PO BID [Selenium], 200 MCG PEG QPM [Thyroid Energy], 2 TABS PO QAM [Vein [place]], 500 MG PO BID [Vitamin D3], 400 UNITS PO QAM Scheduled PRN Chlordiazepoxide (Librium), 10 MG PO TID PRN for RN Meloxicam (Mobic), 15 MG PO DAILY PRN for Pain Oxycodone/Acetaminophen 5MG/325MG (Percocet 5MG/325MG), 1-2 TABLETS PO Q4H PRN for Pain Oxycodone/Acetaminophen 5MG/325MG (Percocet 5MG/325MG), 1-2 TABS PO Q4 PRN for Pain Allergies Coded Allergies: Gluten (Verified Allergy, Mild, GI ISSUES, 03/02/17) Lactose (Verified Allergy, Unknown, GI ISSUES, 03/02/17) NSAIDs (Verified Allergy, Unknown, STOMACH IRRITATION, 03/02/17) Vital Signs Date Time Temp Pulse Resp B/P Pulse Ox O2 Delivery O2 Flow Rate FiO2 03/02/17 15:17 86 18 168/82 95 03/02/17 14:10 89 20 154/72 94 Room Air 03/02/17 11:14 36.8 87 17 157/79 92 Room Air Departure Information Impression Primary Impression: Knee pain Dispostion Home / Self-Care Condition GOOD Prescriptions Oxycodone/Acetaminophen 5MG/325MG (PERCOCET 5MG/325MG) Tab 1-2 TABS PO Q4 Y for Pain, #8 TAB For Initial Treatment Prov: Ambrose Hill PA-C 03/02/17 Referrals Luis Champion M.D. (PCP) En Lentz M.D. Patient Instructions My [facility] Additional Instructions You have been treated in the Emergency Department for Knee Pain. You have been prescribed Percocet to be used for pain control. This is a narcotic medication. You cannot drive or consume alcohol while on this medicine. This medicine should only be used for pain that cannot be controlled with kqty-bdi-porfutf pain medicines. For pain control, you can use the following kofv-ihy-pzcqdou medicines (if >12 yo): - Regular strength (325mg/tab) Tylenol (acetaminophen) 2 tabs every 4-6 hours as needed. Do not exceed 12 tablets in a 24 hour period. Avoid taking more than 4 grams (4000 mg) of Tylenol per day. This includes any other sources of acetaminophen you may take on a regular basis. - Regular strength (200 mg/tab) Advil (ibuprofen) 1-2 tabs every 4-6 hours as needed. Do not exceed a dose of 3200 mg per day. If this is a recent injury (<24 hrs), ice can be applied to the area of pain for the first 3 days to help decrease pain and inflammation. Ice massages can be performed by freezing water in a paper cup, peeling back the cup to expose the ice and then massaging over the affected area. Keep your appointment with your orthopedic surgeon tomorrow. Keep the knee brace in place until cleared by Orthopedics. Use the walker you have been provided to help with ambulation. Return to the Emergency Department if your current symptoms worsen despite treatment course outlined above. Problem Qualifiers Primary Impression: Knee pain Laterality: right Chronicity: acute Qualified Codes: M25.561 - Pain in right knee
--- NOTE | 2017-03-02 13:51 | DIAGNOSTIC IMAGING REPORT ---
RIGHT LOWER EXTREMITY VENOUS DOPPLER HISTORY: Right leg pain. COMPARISON STUDY: None. FINDINGS: There is normal compressibility, flow, and augmentation within the right lower extremity deep venous system. IMPRESSION: No DVT within the right lower extremity Electronically signed by: Meng Evans M.D. 03/02/2017 1:49 PM Dictated Date/Time: 03/02/2017 1:49 PM
[2017-03-02] MEDS ORDERED: OXYC-57 PO (14:55)
[2017-03-02 15:17] VITALS: BP 168/82; PULSE 86; O2SAT 95
== END 2017-03-02 15:18 | disposition home or self-care (01) ==
LOC: C.EDB 10:59 → C.EDD 15:18
DX: M25.561 Pain in right knee (principal); K58.9 Irritable bowel syndrome, unspecified; Z79.899 Other long term (current) drug therapy

== ENCOUNTER → 2017-10-23 | Outpatient (CLI) | payer OTHER, MEDICARE ==
[~2017-10-23] MED LIST changes: -GARL10007 PO; -OXYC-57 PO; +THYROID ENERGY PO
[2017-10-23 16:05] LABS: BASO % 0.4 %; BASO ABS # 0.03 K/uL (0-0.2); COMPLETE YES; EOS % 4.2 %; HEMATOCRIT 40.5 % (37-47); IG% 0.3 %; LYMPH % 38.6 %; LYMPH ABS # 2.66 K/uL (1.2-3.4); MEAN CELL VOLUME 96.4 fL (80-100); MEAN CORPUSCULAR HEMOGLOBIN 31.7 pg (25-34); MEAN CORPUSCULAR HGB CONC 32.8 g/dl (32-36); MEAN PLATELET VOLUME 11.4 fL (7.4-10.4); MONO % 7.4 %; NEUT % 49.1 %; PLATELET COUNT 266 K/uL (130-400); WHITE BLOOD COUNT 6.89 K/uL (4.8-10.8)
[2017-10-23 16:12] LABS: ALT/SGPT 30 U/L (12-78); AST/SGOT 25 U/L (15-37); BLOOD UREA NITROGEN 28 mg/dl (7-18); BUN/CREATININE RATIO 34.4 (10-20); CALCIUM 9.3 mg/dl (8.5-10.1); CARBON DIOXIDE 26 mmol/L (21-32); CHLORIDE 107 mmol/L (98-107); CHOLESTEROL 218 mg/dl (0-200); CREATININE 0.82 mg/dl (0.60-1.20); GLUCOSE 75 mg/dl (70-99); SODIUM 139 mmol/L (136-145); TRIGLYCERIDES 79 mg/dl (0-150); VERY LOW DENSITY LIPOPROT CALC 16 mg/dl
[2017-10-23 16:14] LABS: ALB/GLOB RATIO 0.9 (0.9-2); ALKALINE PHOSPHATASE 78 U/L (45-117); CHOLESTEROL/HDL RATIO 2.8; HDL CHOLESTEROL 79 mg/dl
[2017-10-23 16:17] LABS: URINE APPEARANCE CLEAR (CLEAR); URINE BILIRUBIN NEG (NEG); URINE COLOR YELLOW; URINE NITRITE NEG (NEG); URINE PH 5.5 (4.5-7.5); URINE SPECIFIC GRAVITY 1.014 (1.000-1.030); UROBILINOGEN NEG (NEG)
[2017-10-23 16:22] LABS: MANUAL MICROSCOPIC REQUIRED? NO; REVIEW REQ? NO
[2017-10-24 07:01] LABS: ESTIMATED AVERAGE GLUCOSE 108 mg/dl; HA1C FLAG Normal (Normal)
== END | disposition home or self-care (01) ==
LOC: C.LABSPEC 15:31
PROVIDERS: ATTEND Internal Medicine
DX: I10 Essential (primary) hypertension (principal); T78.40XA Allergy, unspecified, initial encounter; X58.XXXA Exposure to other specified factors, initial encounter; J06.9 Acute upper respiratory infection, unspecified; E78.5 Hyperlipidemia, unspecified; R73.9 Hyperglycemia, unspecified

== ENCOUNTER → 2018-02-02 | Outpatient (CLI) | payer OTHER, MEDICARE ==
[2018-02-02 18:14] LABS: GLUCOSE,FASTING 85 mg/dl (70-99)
[2018-02-02 18:21] LABS: CHOLESTEROL 192 mg/dl (0-200); LDL CHOLESTEROL (DIRECT) 109 mg/dl
== END | disposition home or self-care (01) ==
LOC: C.LABSPEC 16:47
PROVIDERS: ATTEND Internal Medicine
DX: Z00.01 Encounter for general adult medical examination with abnormal findings (principal); R53.83 Other fatigue; E78.5 Hyperlipidemia, unspecified

== ENCOUNTER → 2018-02-13 | Outpatient (CLI) | payer OTHER, MEDICARE ==
--- NOTE | 2018-02-13 15:38 | MAMMOGRAPHY REPORT ---
BILATERAL DIGITAL DIAGNOSTIC MAMMOGRAM TOMOSYNTHESIS WITH CAD AND TARGETED LEFT ULTRASOUND: 02/13/2018 CLINICAL HISTORY: The patient presents for short interval follow-up of a left breast mass which has b een visible and palpable for years. TECHNIQUE: Breast tomosynthesis in addition to standard 2D mammography was performed. Current study was also evaluated with a Computer Aided Detection (CAD) system. Bilateral CC and MLO 2D and tomosyn thesis images were obtained. COMPARISON: Comparison is made to exams dated: 02/10/2017 ultrasound, 02/10/2017 mammogram, 08/26/2016 m ammogram, 08/26/2016 ultrasound, 02/23/2016 ultrasound, and 02/16/2016 ultrasound - [facility]. BREAST COMPOSITION: There are scattered areas of fibroglandular density in both breasts. FINDINGS: Again noted is a lobulated circumscribed 8 mm mass within the left breast at approximately 12:00, not significantly changed when accounting for positioning differences dating back to the February 2016 exam. The remainder of both breasts are stable compared to prior exams, without suspicious mas ses, calcifications, or areas of architectural distortion noted. Scattered bilateral benign-appearin g calcifications are not significantly changed. Nodular 7 mm asymmetry within the left superior alex[address] st middle depth on the MLO view is stable compared to multiple prior exams. Targeted ultrasound was performed of the area of the previously seen left breast mass. In the left b reast at 11:00, 4 cm from the nipple, again noted is a subtle slightly hypoechoic lobulated subdermal mass which measures 8 x 3 x 4 mm. The mass is not significantly changed when accounting for differe nces in measurement technique dating back to the February 2016 exam. This corresponds with the stable m ammographic mass. On clinical exam the lump is palpable and there is bluish discoloration of the ove rlying skin. Given the stability and benign morphology on imaging, the mass is considered benign and likely represents a hemangioma. IMPRESSION: ACR BI-RADS CATEGORY 2: BENIGN, TARGETED ULTRASOUND ACR BI-RADS CATEGORY 2: BENIGN Lobulated 8 mm mass in the left 11:00 breast is stable mammographically and sonographically dating ba ck to at least the February 2016 exam, and is considered benign given the stability and likely represent s a hemangioma. There is no mammographic or targeted sonographic evidence of malignancy. As the ma ss is palpable and visible on the skin, recommend continued clinical follow-up. Also recommend routi ne bilateral screening mammograms in one year. The patient has been verbally notified of the results. Approximately 10% of breast cancers are not detected with mammography. A negative mammographic report should not delay biopsy if a clinically suggestive mass is present. Aleshia Ron M.D. ah/:02/13/2018 10:11:05 Packaging Manager: Ila TORRES(Alvarez)([place]), [facility] letter sent: Normal 1/2 BI-RADS Code: ACR BI-RADS Category 2: Benign Ultrasound BI-RADS: ACR BI-RADS Category 2: Benign
--- NOTE | 2018-02-18 07:11 | CODING QUERY NO DIAGNOSIS ---
TREATMENT RENDERED WITHOUT A DIAGNOSIS Dr. Nguyen To promote full compliance with coding requirements relating to patient care, physician participation is requested in all cases of sales service professional uncertainty. Please assist us with providing a diagnosis/symptom for the test(s) below: A diagnosis/symptom was not documented on your Order. A valid diagnosis/symptom is required to bill all insurances. Please remember that we are unable to code a diagnosis of rule out, probable, possible, questionable, or suspected. Tests that require a diagnosis: * BILATERAL DIAG TOMOSYNTHESIS DIAGNOSIS: * DIAGNOSTIC MAMMO W CAD DIAGNOSIS: * ULTRASOUND BREAST LIMITED DIAGNOSIS: DATE OF SERVICE: 02/13/18 Provider Signature: Date: Thank you Axel Reza [facility] Information Management Once completed, please kindly fax back to [phone] For questions please call [phone]
== END | disposition home or self-care (01) ==
LOC: C.MAMM 09:03
PROVIDERS: ATTEND Internal Medicine
DX: N63.21 Unspecified lump in the left breast, upper outer quadrant (principal)

== ENCOUNTER → 2018-02-26 | Outpatient (CLI) | payer OTHER, MEDICARE ==
[2018-03-02 18:07] LABS: FECAL OCCULT BLOOD #1 NEGATIVE (NEGATIVE); FECAL OCCULT BLOOD #2 NEGATIVE (NEGATIVE); FECAL OCCULT BLOOD #3 NEGATIVE (NEGATIVE)
== END | disposition home or self-care (01) ==
LOC: C.LABSPEC 17:28
PROVIDERS: ATTEND Internal Medicine
DX: Z12.11 Encounter for screening for malignant neoplasm of colon (principal)

== ENCOUNTER → 2018-03-02 | Outpatient (CLI) | payer OTHER, MEDICARE | END | disposition home or self-care (01) | LOC: C.LABSPEC 17:26 | PROVIDERS: ATTEND Internal Medicine | DX: E55.9 Vitamin D deficiency, unspecified (principal) ==

== ENCOUNTER 2021-04-03 06:53 | Observation (INO) ==
--- NOTE | 2021-02-07 10:12 | PAT Medication Instructions ---
Medication Instructions Date of Service February 07, 2021 Home Medications Metamucil 1 tbsp PO DAILY Mucinex 1,200 mg PO QAM albuterol sulfate [Ventolin HFA] 2 puff INHALATION QID PRN aspirin 81 mg PO QAM meloxicam 15 mg PO HS pseudoephedrine HCl [Sudafed 12 Hour] 120 mg PO Q12H PRN Aakd (No2) 1 dose PO QAM Amino Acid 1,000 mg PO QAM Bioflavonoids, [place] 1,000 mg PO QAM Biotin 1,500 mcg PO QAM [place] 500 mg PO BID Mathematics Department Chair's Broom 500 mg PO BID Choline 250 mg PO QAM Curcumin 500 mg MISCELLANEOUS QAM Dmg 200 mg PO QAM Enzyme (For Gluten, Gas, Lactose) 1 dose PO AC Isabel-C with Bioflavonoids 1 tab PO QAM Eyebright 500 mg PO BID Hyaluronic Acid (chond-collgn) 200 mg PO BID Inulin 1 tsp PO UD MSM 1,000 mg PO BID Mature Multivitamin 1 dose PO DAILY Mesoglycan 50 mg PO BID Probiotic 1 tab PO BID Quercetin 2 tab PO QAM Juan-E 400 mg PO QAM Vein [place] (Prickly Marty+) 500 mg PO BID Vitamin B-100 1 dose PO QPM Vitamin B6 50 mg PO QAM acetylcysteine [NAC] 600 mg PO QAM ascorbic acid (vitamin C) [Vitamin C] 500 mg PO QAM beta carotene 15,000 unit PO QAM calcium carbonate-vitamin D3 [Calcium 500 + D] 1 tab PO QAM cholecalciferol (vitamin D3) [Vitamin D3] 2,000 unit PO BID coQ10 (ubiquinol) 100 mg PO QPM folic acid 0.4 mg PO QAM garlic 1,000 mg PO BID ginkgo biloba 60 mg PO BID glucosamine sulfate [Glucosamine] 750 mg PO BID [place] 1 cap PO BID inositol 500 mg PO QPM lecithin, soy 400 mg PO BID lutein 20 mg PO QAM magnesium 250 mg PO BID melatonin 10 mg PO HS milk thistle 1,000 mg PO BID omega 9-yrs-hdp-fish oil [Fish Oil] 1 cap PO BID pantothenic acid (vit B5) 500 mg PO QPM selenium 200 mcg PO QPM turmeric root extract 500 mg PO QAM vitamin G45-ebckl acid 1 tab PO QAM vitamin E 400 unit PO QAM cetirizine [Zyrtec] 10 mg PO HS montelukast [Singulair] 10 mg PO QAM STOP taking 2 weeks before surgery (or as soon as possible if surgery is within 2 weeks) Aakd (No2) 1 dose PO QAM Amino Acid 1,000 mg PO QAM Bioflavonoids, [place] 1,000 mg PO QAM [place] 500 mg PO BID Mathematics Department Chair's Broom 500 mg PO BID Choline 250 mg PO QAM Curcumin 500 mg MISCELLANEOUS QAM Dmg 200 mg PO QAM Enzyme (For Gluten, Gas, Lactose) 1 dose PO AC Isabel-C with Bioflavonoids 1 tab PO QAM Eyebright 500 mg PO BID Hyaluronic Acid (chond-collgn) 200 mg PO BID Inulin 1 tsp PO UD MSM 1,000 mg PO BID Mature Multivitamin 1 dose PO DAILY Mesoglycan 50 mg PO BID Quercetin 2 tab PO QAM Juan-E 400 mg PO QAM Vein [place] (Prickly Marty+) 500 mg PO BID acetylcysteine [NAC] 600 mg PO QAM beta carotene 15,000 unit PO QAM coQ10 (ubiquinol) 100 mg PO QPM garlic 1,000 mg PO BID ginkgo biloba 60 mg PO BID glucosamine sulfate [Glucosamine] 750 mg PO BID [place] 1 cap PO BID inositol 500 mg PO QPM lecithin, soy 400 mg PO BID lutein 20 mg PO QAM magnesium 250 mg PO BID selenium 200 mcg PO QPM turmeric root extract 500 mg PO QAM vitamin E 400 unit PO QAM DO NOT take the morning of surgery Metamucil 1 tbsp PO DAILY Mucinex 1,200 mg PO QAM pseudoephedrine HCl [Sudafed 12 Hour] 120 mg PO Q12H PRN Biotin 1,500 mcg PO QAM Probiotic 1 tab PO BID Vitamin B6 50 mg PO QAM ascorbic acid (vitamin C) [Vitamin C] 500 mg PO QAM calcium carbonate-vitamin D3 [Calcium 500 + D] 1 tab PO QAM cholecalciferol (vitamin D3) [Vitamin D3] 2,000 unit PO BID folic acid 0.4 mg PO QAM magnesium 250 mg PO BID vitamin F41-paipw acid 1 tab PO QAM montelukast [Singulair] 10 mg PO QAM Take morning of surgery With a small sip of water, OTHERWISE NOTHING TO EAT OR DRINK AFTER MIDNIGHT: albuterol sulfate [Ventolin HFA] 2 puff INHALATION QID PRN (use if needed; please bring rescue inhaler with you to hospital day of surgery if possible) aspirin 81 mg PO QAM acetylcysteine [NAC] 600 mg PO QAM Take evening before surgery albuterol sulfate [Ventolin HFA] 2 puff INHALATION QID PRN (if needed) pseudoephedrine HCl [Sudafed 12 Hour] 120 mg PO Q12H PRN (if needed) Probiotic 1 tab PO BID cholecalciferol (vitamin D3) [Vitamin D3] 2,000 unit PO BID magnesium 250 mg PO BID melatonin 10 mg PO HS cetirizine [Zyrtec] 10 mg PO HS Other Notes If you have any questions please call us at [phone] or [phone] or [phone] or [phone]
--- NOTE | 2021-02-08 14:17 | Anesthesiology Consultation ---
Date of Service February 08, 2021 Assessment & Plan (1) Encounter for pre-operative examination: - COVID screening: Per assessment on 02/08: Travel screen negative, no known COVID-19 positive contacts or current COVID-19 related symptoms. Patient is fully vaccinated. Surgeon arranging preop COVID testing. Awaiting results. - Hx spinal headache: questions addressed. Discussed SAB vs. GA. To discuss further AM DOS. - Medication instructions: To continue perioperatively unless told otherwise by surgeon/prescriber. 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 She was advised to hold 2 weeks prior to surgery. Patient voiced understanding. Patient taking NAC (acetylcysteine)- per Dr Haynes, recommendation to continue perioperatively. Patient made aware. Chart Review Chart Review: Acceptable Risk for Surgery (pending most recent PCP office visit note) and Patient seen in Pre Admission Testing Teaching & Discussion Pre-Anesthesia Teaching/Discussion Notes: Instructed NPO after midnight before surgery,except medications with 15 cc of water. Medication instructions provided according to the PAT guidelines. History Surgery Operation Date: 03/06/21 12:30 Proposed Procedures p Right Total Knee Arthroplasty - Brian Schilling MD Height/Weight Height: 5 ft 1 in Weight: 76.7 kg Allergies Allergy/AdvReac Type Severity Reaction Status Date / Time No Known Drug Allergies Allergy Uncoded 02/06/21 15:16 ENVIRONMENTAL ALLERGIES AdvReac Mild Congestion Uncoded 02/08/21 14:11 Medications Home Medications Medication Instructions Recorded Confirmed Last Taken Metamucil 1 tbsp PO DAILY 08/20/18 02/06/21 08/20/18 Mucinex 1,200 mg PO QAM 08/20/18 02/06/21 08/20/18 albuterol sulfate [Ventolin HFA] 2 puff INHALATION QID PRN 08/20/18 02/06/21 08/20/18 aspirin 81 mg PO QAM 08/20/18 02/06/21 08/24/18 meloxicam 15 mg PO HS 08/20/18 02/06/21 08/20/18 pseudoephedrine HCl [Sudafed 12 120 mg PO Q12H PRN 08/20/18 02/06/21 08/20/18 Hour] Aakd (No2) 1 dose PO QAM 08/21/18 02/06/21 08/13/18 Amino Acid 1,000 mg PO QAM 08/21/18 02/06/21 08/20/18 Bioflavonoids, Jennings 1,000 mg PO QAM 08/21/18 02/06/21 08/20/18 Biotin 1,500 mcg PO QAM 08/21/18 02/06/21 08/20/18 Boswellia 500 mg PO BID 08/21/18 02/06/21 08/20/18 Professional Security Officer's Broom 500 mg PO BID 08/21/18 02/06/21 08/20/18 Choline 250 mg PO QAM 08/21/18 02/06/21 08/20/18 Curcumin 500 mg MISCELLANEOUS QAM 08/21/18 02/06/21 08/20/18 Dmg 200 mg PO QAM 08/21/18 02/06/21 08/20/18 Enzyme (For Gluten, Gas, Lactose) 1 dose PO AC 08/21/18 02/06/21 08/20/18 Isabel-C with Bioflavonoids 1 tab PO QAM 08/21/18 02/06/21 08/20/18 Eyebright 500 mg PO BID 08/21/18 02/06/21 08/20/18 Hyaluronic Acid (chond-collgn) 200 mg PO BID 08/21/18 02/06/21 08/20/18 Inulin 1 tsp PO UD 08/21/18 02/06/21 08/20/18 MSM 1,000 mg PO BID 08/21/18 02/06/21 08/20/18 Mature Multivitamin 1 dose PO DAILY 08/21/18 02/06/21 08/20/18 Mesoglycan 50 mg PO BID 08/21/18 02/06/21 08/20/18 Probiotic 1 tab PO BID 08/21/18 02/06/21 08/20/18 Quercetin 2 tab PO QAM 08/21/18 02/06/21 08/20/18 Juan-E 400 mg PO QAM 08/21/18 02/06/21 08/20/18 Vein Winner (Prickly Marty+) 500 mg PO BID 08/21/18 02/06/21 08/20/18 Vitamin B-100 1 dose PO QPM 08/21/18 02/06/21 08/20/18 Vitamin B6 50 mg PO QAM 08/21/18 02/06/21 08/20/18 acetylcysteine [NAC] 600 mg PO QAM 08/21/18 02/06/21 08/13/18 ascorbic acid (vitamin C) [Vitamin 500 mg PO QAM 08/21/18 02/06/21 08/20/18 C] beta carotene 15,000 unit PO QAM 08/21/18 02/06/21 08/20/18 calcium carbonate-vitamin D3 1 tab PO QAM 08/21/18 02/06/21 08/20/18 [Calcium 500 + D] cholecalciferol (vitamin D3) 2,000 unit PO BID 08/21/18 02/06/21 08/20/18 [Vitamin D3] coQ10 (ubiquinol) 100 mg PO QPM 08/21/18 02/06/21 08/20/18 folic acid 0.4 mg PO QAM 08/21/18 02/06/21 08/22/18 garlic 1,000 mg PO BID 08/21/18 02/06/21 08/20/18 ginkgo biloba 60 mg PO BID 08/21/18 02/06/21 07/23/18 glucosamine sulfate [Glucosamine] 750 mg PO BID 08/21/18 02/06/21 08/20/18 hawthorn 1 cap PO BID 08/21/18 02/06/21 08/20/18 inositol 500 mg PO QPM 08/21/18 02/06/21 08/20/18 lecithin, soy 400 mg PO BID 08/21/18 02/06/21 08/20/18 lutein 20 mg PO QAM 08/21/18 02/06/21 08/20/18 magnesium 250 mg PO BID 08/21/18 02/06/21 08/20/18 melatonin 10 mg PO HS 08/21/18 02/06/21 08/22/18 milk thistle 1,000 mg PO BID 08/21/18 02/06/21 08/20/18 omega 1-snl-kat-fish oil [Fish Oil] 1 cap PO BID 08/21/18 02/06/21 08/20/18 pantothenic acid (vit B5) 500 mg PO QPM 08/21/18 02/06/21 08/20/18 selenium 200 mcg PO QPM 08/21/18 02/06/21 08/20/18 turmeric root extract 500 mg PO QAM 08/21/18 02/06/21 08/20/18 vitamin [id number] acid 1 tab PO QAM 08/21/18 02/06/21 08/20/18 vitamin E 400 unit PO QAM 08/21/18 02/06/21 08/20/18 cetirizine [Zyrtec] 10 mg PO HS 02/06/21 02/06/21 Unknown montelukast [Singulair] 10 mg PO QAM 02/06/21 02/06/21 Unknown [place] Ii 2 tab PO DAILY 02/08/21 Unknown Gi Revive 1 tsp PO DAILY 02/08/21 Unknown Neuro Mag 2 tab PO DAILY 02/08/21 Unknown Two Per Day 1 tab PO DAILY 02/08/21 Unknown Past Medical History Medical History Asthma Glaucoma Hearing deficit History of anemia History of GI bleed r/t plavix (since discontinued) Hyperlipidemia "borderline" Hypertension "borderline" IBS (irritable bowel syndrome) Osteoarthritis Stroke 07/2018 > no residual effects, plavix discontinued (hx GIB) SVT (supraventricular tachycardia) Episode SVT during 04/2020 stress test (lasting approximately 50 seconds) converting to SR with carotid massage Uterine fibroid Exercise / Class Metabolic Activity II 4-5 Yardwork/Stairs/Walk up hill (one flight of stairs (no chest pain, very mild/rare SOB)) Past Family History Family History Family/Other Family history of diabetes mellitus Other No family history of adverse response to anesthesia Past Surgical History Surgical History History of arthroscopy Right knee History of cataract surgery R/L History of colonoscopy History of gynecologic surgery Anterior cystocele repair History of herniorrhaphy History of surgical procedure on eye proper using laser R/L (for glaucoma) History of tonsillectomy History of tooth extraction Nasal polyps s/p excision Sigmoidoscopy exam Past Anesthesia History No Family Hx of Anesthesia Complications and Other (Spinal headache with delivery 50+ years ago) History of PONV No Hx of PONV and No Hx of Motion Sickness Social History Smoking Status: Never smoker Do You Dip or Chew Tobacco: No Hx Alcohol Use: Yes Alcohol type: wine alcohol intake frequency: a few times a month Hx Substance Use: No substance use type: does not use Review of Systems Patient states previously mentioned mild snoring but she is unaware. Patient denies palpitations. Patient denies chest pain, shortness of breath, dyspnea on exertion, fever, chills, cough, wheezing. Physical Exam Vital Signs VITALS BP 171/83 > (borderline BP under surveillance by PCP- Dr. Patrick Linda. Most recent comparison BP in [facility] 140/80 at 09/06/20 office visit) P 76 TEMP 98.2 SP02 96%RA RESP 16 PHYSICAL Full cervical extension range of motion. Full TMJ range of motion. TMD 3 finger breaths Mallampati Score 1 Dentition: intact, + implants (molars), several crown (all over) Lungs: clear throughout to auscultation Cardiac: regular rate and rhythm, no murmurs noted Spine: normal Carotid arteries: negative bruit Extremities: no edema Testing Laboratory Results 02/08/21 11:34 02/08/21 11:34 PT 10.3 Seconds (9.0-12.0) 02/08/21 11:34 INR 1.0 (0.9-1.1) 02/08/21 11:34 APTT 22.7 Seconds (21.0-31.0) 02/08/21 11:34 Blood Type A Negative 02/08/21 11:34 Antibody Screen NEGATIVE 02/08/21 11:34 Electrocardiogram Date: 05/01/20 Sinus rhythm at 72 bpm. First-degree AV block. Complete RBBB. Abnormal Q-wave (III, AVF), ST depression. > subsequent stress test done 05/08/20 Chest X-Ray Date: 02/08/21 FINDINGS: Cardiomediastinal and hilar silhouettes are within normal limits. Patient is mildly rotated on the lateral view. Calcific plaque of the thoracic aorta. No pneumothorax, pleural effusion, airspace consolidation or overt pulmonary edema. Bones of the chest appear grossly intact. IMPRESSION: No acute process. Stress Test Date: 05/04/20 Type: exercise Negative stress echo/exercise ECG for ischemia at 137% MPHR. Immediately into r ecovery, SVT occurred lasting approximately 50 seconds converting to sinus rhythm with carotid massage. Upon questioning, she admitted to palpitations. No chest pain. Fair exercise tolerance. EF 66 5%. Mild concentric LVH. No significant valvular disease.
--- NOTE | 2021-02-08 15:04 | XRay Report ---
XR chest Pre-admission PA/Lat HISTORY: 85 years-old Female pat preoperative exam. COMPARISON: Chest radiograph 07/29/2018 TECHNIQUE: PA and lateral views of the chest FINDINGS: Cardiomediastinal and hilar silhouettes are within normal limits. Patient is mildly rotated on the la teral view. Calcific plaque of the thoracic aorta. No pneumothorax, pleural effusion, airspace consol idation or overt pulmonary edema. Bones of the chest appear grossly intact. IMPRESSION: No acute process. ACT 112: Negative or not required by law. The above report was generated using voice recognition software. It may contain grammatical, syntax o r spelling errors. Electronically signed by: Jesus Palafox M.D. 02/08/2021 3:03 PM
[2021-02-08 15:13] LABS: Basophils # (auto) 0.02 K/uL (0-0.2); Basophils % (auto) 0.2 %; Eosinophils % (auto) 3.2 %; Hematocrit (blood only) 38.3 % (37-47); Hemoglobin 12.4 g/dL (12.0-16.0); Immature Granulocytes # (auto) 0.02 K/uL (0.00-0.02); Immature Granulocytes % (auto) 0.2 %; Lymphocytes # (auto) 3.23 K/uL (1.2-3.4); Lymphocytes % (auto) 34.6 %; Mean Corpuscular Hemoglobin 31.2 pg (25-34); Mean Corpuscular Hgb Conc 32.4 g/dL (32-36); Mean Corpuscular Volume 96.2 fL (80-100); Monocytes # (auto) 0.47 K/uL (0.11-0.59); Neutrophils % (auto) 56.8 %; Platelet Count 249 K/uL (130-400); RDW Coefficient of Variation 13.8 % (11.5-14.5); RDW Standard Deviation 48.9 fL (36.4-46.3); Red Blood Count 3.98 M/uL (4.2-5.4); White Blood Count 9.34 K/uL (4.8-10.8)
[2021-02-08 15:21] LABS: BUN Creatinine Ratio 38.8 (10-20); Calcium 9.8 mg/dl (8.5-10.1); Creatinine Clr Calc Pharmacy 50.3 ml/min; Est GFR (African American) 80.9; Est GFR (Non-African American) 69.8; Potassium 4.4 mmol/L (3.5-5.1)
[2021-02-08 15:25] LABS: Partial Thromboplastin Ratio 0.9; Partial Thromboplastin Time 22.7 Seconds (21.0-31.0); Prothrombin Time 10.3 Seconds (9.0-12.0)
--- NOTE | 2021-03-03 10:55 | History and Physical Report ---
DATE OF ADMISSION: 03/06/2021 CHIEF COMPLAINT: Bilateral knee pain and discomfort, right side greater than left. HISTORY OF PRESENT ILLNESS: The patient is an 86-year-old female who presents specifically for surgical treatment of her knees. She has got a long history of bilateral knee pain and discomfort that has gradually gotten worse over time. She had been followed by Dr. Lentz in the past. She had a right knee scope back in 2018, which did not help her at all. She has got chronic pain in both knees. It is global pain. The more she is up and on her knees, the more they hurt. She limps all the time, but increases as the day goes on. She has nighttime pain. She has failed conservative measures and would like to proceed with knee replacement. She was hoping to do both knees at the same time. Of note, the patient does have a history of stroke in the past with minimal residual symptoms. PAST MEDICAL HISTORY: 1. Hypertension. 2. Elevated cholesterol. 3. Mild obesity with BMI of 32. 4. Osteoarthritis. 5. Cerebrovascular disease. PAST SURGICAL HISTORY: Includes, 1. Right knee scope in [address] Lentz. 2. Nasal polyp removal. 3. Ear surgery. 4. Tonsillectomy. 5. Cataract surgery. 6. Glaucoma. ALLERGIES: None. CURRENT MEDICATIONS: Include, 1. Albuterol. 2. Amino acid supplement. 3. Bioflavonoids. 4. Vitamin C. 5. Aspirin 81 mg. 6. Probiotic. 7. Multiple supplements. 8. Vitamin D3. 9. Folic acid. 10. Garlic. 11. Insulin. 12. Lansoprazole. 13. Glucosamine. 14. Ginkgo biloba. 15. ____ 16. Losartan. 17. Lutein. 18. Magnesium. 19. Multivitamin. 20. Melatonin. 21. Meloxicam. 22. Mesoglycan. 23. Milk thistle. 24. Vitamin B5. 25. Potassium. 26. Sudafed. 27. Metamucil. 28. Vitamin B6. 29. Vitamin B 100. 30. Vitamin B12. 31. Turmeric. 32. Selenium. SOCIAL HISTORY: Significant for an 86-year-old female. She does not smoke. No significant alcohol intake. FAMILY HISTORY: Noncontributory. REVIEW OF SYSTEMS: Significant for some mini strokes without residual sequelae. Denies any chest pain or shortness of breath. No history of DVT or PE. No known bleeding problems. PHYSICAL EXAMINATION: GENERAL: Shows a pleasant elderly female. Looks to be in reasonably good health. HEENT: Benign. NECK: Supple, no lymphadenopathy. LUNGS: Clear to auscultation. HEART: Has a regular rate and rhythm. ABDOMEN: Soft, nontender, nondistended. EXTREMITIES: Grossly neurovascularly intact except as follows: Examination of the knees reveals the patient who ambulates independently. She has got varus alignment to both knees. Examination of the right knee reveals varus alignment. She has got bony hypertrophy medially. Range of motion about 10 degrees short of full extension to 110 degrees of flexion. There is no instability. No pain with hip motion. Examination of the left knee reveals fairly neutral to slight varus alignment. Small knee effusion. Range of motion 5-120. No instability. X-RAYS: X-rays of both knees reveal advanced bilateral knee DJD. She has got a complete loss of her medial joint space on the right knee. She has got cystic change in the medial tibial plateau. She does have some chondrocalcinosis. X-rays of the left knee reveal advanced lateral compartment DJD. ASSESSMENT: An 86-year-old female with advanced bilateral knee degenerative joint disease. She has failed conservative treatment. She was hoping to do both knees at the same time, but I do not think that is a good idea in someone of her age and underlying comorbidities as it increases the risk. The right knee is bothering her most and we will proceed with a right knee replacement. PLAN: We will take her to the operating room and do a right total knee replacement. The risks and benefits of this procedure were explained to the patient including but not limited to DVT, PE, , infection, neurological injury, vascular injury, bleeding problem, pain, limited range of motion, stiffness, failure to relieve her symptoms, incomplete relief of symptoms, need for further surgery in the future, etc. The patient understands and desires to proceed. Informed consent was obtained. She is hoping to be discharged to [facility] for a brief rehab stay. We did talk to her about holding some supplements and vitamins preoperatively for 2 weeks. Her daughter is going to come and stay with her when she is out of [facility]. We will plan DVT prophylaxis including TEDs, SCDs, and aspirin twice a day.
--- NOTE | 2021-04-02 08:13 | History and Physical Report ---
DATE OF ADMISSION: 04/03/2021 CHIEF COMPLAINT: Bilateral knee pain and discomfort, right side greater than left. More instability in left HISTORY OF PRESENT ILLNESS: The patient is an 86-year-old female who presents for treatment of her knees. She has got a long history of bilateral knee pain and discomfort that has gotten worse over time. She comes to me specifically for surgical treatment. She is hoping to do both knees at the same time. Dr. Lentz had been treating her in the past. She had her right knee scoped in 2018 which did not help at all. She describes global pain. The more she is up and on her knees, the more they hurt. She limps all the time. Pain increases as the day goes on. She has failed conservative measures. She would like to proceed with surgical treatment. The patient did have a history of a stroke about 2 years ago with no real significant sequelae. PAST MEDICAL HISTORY: Significant for, 1. Hypertension. 2. Elevated cholesterol. 3. Mild obesity with BMI of 32. 4. Osteoarthritis. 5. Cerebrovascular disease with stroke with very minimal sequelae. PAST SURGICAL HISTORY: Include, 1. Right knee arthroscopy done by Dr. Lentz in 2018. 2. Nasal polyp removal. 3. Ear surgery. 4. Tonsillectomy. 5. Cataract surgery. 6. Glaucoma. ALLERGIES: None. CURRENT MEDICATIONS: Include, 1. Albuterol. 2. Amino acid supplement. 3. Unspecified. 4. Vitamin C. 5. Aspirin. 6. Probiotic. 7. Multiple supplements. 8. Vitamin D3. 9. Folic acid. 10. Garlic. 11. Insulin. 12. Lansoprazole. 13. Glucosamine. 14. Gingko biloba. 15. Losartan. 16. Lutein. 17. Magnesium. 18. Multivitamin. 19. Melatonin. 20. Meloxicam. 21. Milk thistle. 22. Vitamin B5. 23. Potassium. 24. Sudafed. 25. Metamucil. 26. Vitamin B6. 27. Vitamin B 100. 28. Vitamin B12. 29. Turmeric. 30. Selenium. SOCIAL HISTORY: An 86-year-old female. She lives in [place]. No significant alcohol intake. Does not smoke. FAMILY HISTORY: Noncontributory. REVIEW OF SYSTEMS: Significant for some mini strokes without sequelae. Denies any chest pain or shortness of breath. No history of DVT or PE. No known bleeding problems. PHYSICAL EXAMINATION: GENERAL: Shows a pleasant elderly female who looks to be in pretty good health. HEENT: Benign. NECK: Supple, no lymphadenopathy. LUNGS: Clear to auscultation. HEART: Has a regular rate and rhythm. ABDOMEN: Soft, nontender, nondistended. EXTREMITIES: Grossly neurovascularly intact except as follows: Examination of both knees reveals the patient walks with just a little bit of a limp. She has got varus alignment to both knees. Examination of the right knee reveals varus alignment. She is tender over the medial joint line. She has got bony hypertrophy medially. Range of motion is 10 degrees short of full extension to 110 degrees of flexion. No instability. No pain with hip motion. Examination of the left knee reveals slight valgus alignment. Small knee effusion. Range of motion 5-120. No instability. X-RAYS: X-rays of both knees were reviewed. It shows advanced bilateral knee DJD. She has got advanced right knee medial compartment DJD with complete loss of medial joint space. She has got cystic changes of the medial tibial plateau. She has got some chondrocalcinosis. Left Knee reveals advanced lateral compartment disease ASSESSMENT: An 86-year-old white female with advanced bilateral knee degenerative joint disease, right side worse than the left, but left more unstable and problematic for her.. She has failed conservative treatment and would like to have her left knee replaced. She is hoping to do both knees. She has been scheduled in the past but canceled. I do not think we should be doing both knees in a patient of her age and will stick with doing the right knee replacement. PLAN: We are going to take her to the operating room and do a left total knee replacement. The risks and benefits of this procedure were explained to the patient including, but not limited to, DVT, PE, , infection, neurological injury, vascular injury, bleeding problem, pain, limited range of motion, stiffness, failure to relieve her symptoms, incomplete relief of symptoms, need for further surgery in the future, fracture, leg length inequality, nerve palsy, etc. The patient understands and desires to proceed. Informed consent was obtained. Her daughter is going to come and stay with her. She is hoping to be discharged to [facility] for a brief rehab stay. We will see her back 2 weeks postop. MALIK
[~2021-04-03 06:53] MED LIST changes: -ACET600C PO; +ACETAMINOPHEN 500 MG TAB PO SCH; -ALPR-412 PO; -AMINTAB13 PO; -ARTICHOKE PO; -ASCO1CAP3 PO; -B-COTAB18 PO; -BIOT1TAB5 PO; -BOSWELIA PO; +BUPIVACAINE 0.25% 30 ML VIAL ONE; +BUPIVACAINE 0.5 % 5 MG/1 ML PF 10ML VIAL ONE; +BUPIVACAINE LIPOSOME/PF 266 MG, BUPIVACAINE/EPINEPHRINE 50 ML, SODIUM CHLORIDE 0.9% 30 ... INFIL SCH; -BUTCHERS BROOM PO; -CALC600T9 PO; -CETI10TA84 PO; -CHLO10CA7 PO; -CHOLINE PO; -COEN100C7 PO; -COLL1CAP PO; -CYAN500T13 PO; -DICY10CA12 PO; -ESTER C PO; -EYEBRIGHT PO; +FAMOTIDINE 20 MG TAB PO SCH; -FOLIC ACID PO; +GABAPENTIN 300 MG CAP PO SCH; -GINK60TA2 PO; -GLUCOSAMINE PO; -HAWTHORN PO; -INOS500T PO; -INULIN PO; -LECITHIN PO; +LR 500ML BOLUS, THEN 15ML/HR IV SCH; +LR 60ML/HR IV SCH; -LUTE20TA PO; -MAGNESIUM PO; -MELATAB2 PO; -MELO7.5T5 PO; -METH-736 PO; -MILK1CAP9 PO; -MISCCAP77 PO; -MISCTAB PO; -MULT-506 PO; -OMEG10002 PO; -PANT500T PO; -POTASSIUM PO; -PSEU30TA64 PO; -PSYL48.59 PO; -PYRI100T4 PO; -S AD PO; -SELENIUM PEG; -THYROID ENERGY PO; +TRANEXAMIC ACID 1,000 MG **IV Intra-op IV SCH; -TURM500C2 PO; -VITACAP37 PO; -VITAMIN D3 PO; -VNTHFA/IN INH; -[UNRECOGNIZED DRUG - CODE] PO; -[UNRECOGNIZED DRUG - CODE] PO; -[UNRECOGNIZED DRUG - CODE] PO; -[UNRECOGNIZED DRUG - OTHER] PO; -[UNRECOGNIZED DRUG - OTHER] PO; -[UNRECOGNIZED DRUG - OTHER] PO; -[UNRECOGNIZED DRUG - OTHER] PO; +ceFAZolin 2000MG 2,000 MG/15 ML SYR IV SCH
[2021-04-03] MEDS ORDERED: MIDAZOLAM HCL 1 MG/ML 2ML VIAL ONE (07:13)
[2021-04-03] MEDS ORDERED: fentaNYL citrate 100 MCG/2 ML VIAL ONE (07:13)
--- NOTE | 2021-04-03 08:39 | History & Physical Bridge Note ---
Date of Service April 03, 2021 History & Physical Bridge Note I have examined the patient, reviewed the History & Physical and in the interval since the performance of the History & Physical I have noted the following changes of clinical significance: no changes noted. Patient has decided to do left knee replacement first/today.
[2021-04-03] MEDS ORDERED: SODIUM CHLORIDE 0.9% PF 50 ML VIAL ONE (08:41)
[2021-04-03] MEDS ORDERED: BUPIVACAINE LIPOSOME 1.3% 266 MG/20 ML VIAL ONE (08:41)
[2021-04-03] MEDS ORDERED: BUPIVACAINE 0.25% 30 ML VIAL ONE (08:42)
[2021-04-03] MEDS ORDERED: EPINEPHrine INJ 1 MG/ML AMP ONE (08:42)
[2021-04-03] MEDS ORDERED: PROPOFOL IV EMULSION 10 MG/ML 20 ML VIAL IV ONE (09:12)
--- NOTE | 2021-04-03 10:55 | Operative Report ---
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 She had grade 4 aefi-tj-muee disease of the lateral compartment as well as patellofemoral compartment. She developed a deformity to her knee. Moderate sized knee joint effusion. Diffuse osteopenia. Fluids 600 cc. Specimens Left knee sent for pathology. Drains None Anesthesia Type Spinal MAC Complications none Disposition Accompanied Patient To Recovery: No Disposition: Recovery Room Indications Patient is an 86-year-old female has had a long history of bilateral knee pain discomfort. She has been through extensive conservative treatment which became less successful over time. She was hoping to do both knees but I did not feel that based on her age and medical issues that that would safe. As she elected to her left knee replacement first with hopes of doing the right 1 [address] to [address] X-rays show advanced left knee lateral compartment DJD of the left knee. Description of Procedure Operative implants consist of: 1. Biomet Vanguard size 60 left posterior stabilized femoral component. New 2. Biomet size 63 tibial tray. 3. 10 mm posterior stabilized polyethylene insert. 4. 28 x 8 all polypatella. Patient was taken to the operating, identified, placed on the operating table supine position protectors were properly padded. IV antibiotics 5 by anesthesia team. Spinal anesthetic and abductor canal blocks were provided in the holding area. Dolan catheter was placed in sterile fashion. Left thigh tip was then placed in the left lower extremities and prepped and draped in usual sterile fashion. The left leg was elevated exsanguinated with use of an Esmarch interspace at 300 mmHg. An anterior posterior left knee was then performed through longitudinal incision centered over the patella. Sharp dissection was carried through subcutaneous tissue down the extensor mechanism. A medial parapatellar arthrotomy incision was made. Some subperiosteal dissection was carried out medially. The fat pad was resected from each patella tendon. Lateral patellofemoral ligament was released. Patella was subluxated laterally knee was flexed. The osteophyte taken off distal femur P the ACL and PCL were then released from distal femur and the tibia subluxated anteriorly. The external treatment line jig was then placed in the interface the tibia and adjusted 12 mm medially. Proximal tibial cut was made to remove about 4 to 5 mm of bone from the medial side. The tibia sized to a size 63. Attention drawn the femur. The distal femur during the sharp drill bit intramedullary canal was suction. A left 5 degree valgus cutting guide was placed. Distal femoral cutting block was pinned in place. Distal femoral cut was made to take an additional 3 mm of bone off distal femur. The knee was brought out in extension and I did do some pie crusting of the lateral IT band in order to release this and equalize the extension gap laterally. Great care was taken to throughout the procedure protect the peroneal nerve at all times. The knee was then flexed. The femur was sized to a size 60. The AP cutting block was pinned parallel to the epicondylar axis which was 6 degrees of external rotation. The anterior cut, anterior chamfer, posterior cut, posterior chamfer cuts were made. Box cutting guide was placed in just slight lateral and the box cut was made. The knee was flexed. The remnants of the medial and lateral menisci were excised. The osteophyte taken off the posterior aspect of the femur. I did release the popli teus in order to equalize the flexion gap. A trial femoral component was placed. The tibial tray was pinned in maximum external rotation and the drill and stem punch used to create defect in proximal tibia for the tibial tray. Knee was then trialed and the 10 mm insert fit most appropriately. Attention drawn the patella. Patella was cleaned of all soft tissues. Patella thickness measured 18 mm in thickness. Was cut down to 12. Was sized to a size 28 patella. The lug holes were drilled for the 28 patella. The lateral osteophyte was removed. Patella button was placed. Knee was taken through range of motion patella tracked nicely with no thumbs test. Attention drawn to placing permanent components. Nupathe all trial components removed. Bone plug was placed in the distal femur limit blood loss put a double batch Palacos G cement was mixed. [employer] Vanguard size 60 left posterior stabilized femoral component, size 63 tibial tray, a 10 mm posterior stabilized polyethylene insert, and a 28 x 8 all polypatella then cemented in place. Knee was brought out into full extension total cement hardened. Final cement check was then performed. The pericapsular tissues were injected with total 100 cc of combination of 20 of Exparel, 30 cc of normal saline, 50 cc of quarter percent Marcaine with epinephrine. Patient did receive 1 g tranexamic acid per the chart was then let down for final tourniquet time 53 minutes. Hemostasis assured use electrocautery. Extensor mechanism closed with combination 1 PDS suture #1 Vicryl suture in [id number] fashion. Extensor mechanism checked found to be intact the subcutaneous tissue was then closed with 2-0 Dexon suture in a buried interrupted fashion. Skin was closed skin christoph. Legs then cleaned dried a sterile dressing both Xeroform, 4 x 4's, sterile cast padding, Dennys bandage applied. Patient then transferred to the recovery room in stable condition. Patient tolerated the procedure well and there were no complications. Fab Kang, my physician creative assistant, was present for the entire procedure. His assistance was essential and required for appropriate patient positioning, prepping and draping, surgical exposure, performing the technical details of the operation, placement the implants, closure of the wound, and placement of the sterile bandage. I attest to the content of the Intraoperative Record and any orders documented therein. Any exceptions are noted below.
--- NOTE | 2021-04-03 11:02 | XRay Report ---
LEFT KNEE 2 VIEWS History: Left total knee arthroplasty. Degenerative arthritis. Postop. FINDINGS: The patient is status post a left total knee arthroplasty. The hardware is intact. No fract ure or dislocation. Skin christoph are in place. IMPRESSION: Left total knee arthroplasty. No evidence for hardware complication. ACT 112: Negative or not required by law. Electronically signed by: Meng Evans M.D. 04/03/2021 11:01 AM
[2021-04-03] MEDS ORDERED: ATROPINE SULFATE 0.1 MG/ML 10ML SYR IV PRN (11:17)
[2021-04-03] MEDS ORDERED: ePHEDrine sulfate 50 MG/ML AMP IV PRN (11:17)
--- NOTE | 2021-04-03 11:31 | Anesthesiology Progress Note ---
Date of Service April 03, 2021 Anesthesia Post Procedure Vital Signs Vital Signs: Temp Pulse Pulse Resp BP BP Pulse Ox 04/03/21 11:25 78 17 144/86 H 98 04/03/21 11:15 82 12 155/82 H 97 04/03/21 11:05 36.2 C L 79 14 152/77 H 99 04/03/21 10:55 81 15 158/73 H 100 04/03/21 10:45 36.1 C L 88 15 143/66 H 100 04/03/21 07:38 36.7 C 68 20 181/89 H 96 Pain Intensity Left Knee: Pain Intensity: 3 Transfer of Care Handoff Completed per policy Notes Mental Status: alert / awake / arousable and participated in evaluation Nausea / Vomiting: adequately controlled Pain: adequately controlled Airway Patency, RR, SpO2: stable & adequate BP & HR: stable & adequate Hydration State: stable & adequate Neuraxial Anesthesia: was administered and sensory block is resolving Anesthetic Complications: no major complications apparent and Pt Satisfied with anesthetic care
[2021-04-03] MEDS ORDERED: LACTOSE PO SCH (11:55)
[2021-04-03] MEDS ORDERED: METOCLOPRAMIDE HCL INJ 5 MG/ML 2 ML VIAL IV PRN (11:55)
[2021-04-03] MEDS ORDERED: NALOXONE HCL 0.4 MG/1 ML VIAL/CARP IV PRN (11:55)
[2021-04-03] MEDS ORDERED: MAGNESIUM HYDROXIDE SUSP 30 ML UDC PO PRN (11:55)
[2021-04-03] MEDS ORDERED: ENZYME PO SCH (11:55)
[2021-04-03] MEDS ORDERED: bisacodyL 10 MG SUPP PR PRN (11:55)
[2021-04-03] MEDS ORDERED: ALBUTEROL HFA 8 GM INHALER INH PRN (11:55)
[2021-04-03] MEDS ORDERED: ONDANSETRON INJ 2 MG/ML 2 ML VIAL IV PRN (11:55)
[2021-04-03] MEDS ORDERED: INULIN PO SCH (11:55)
[2021-04-03] MEDS ORDERED: GAS PO SCH (11:55)
[2021-04-03] MEDS ORDERED: traMADol HCL 50 MG TABLET PO PRN (11:55)
[2021-04-03] MEDS ORDERED: ALUMINUM/MAGNESIUM SUSP 30 ML UDC PO PRN (11:55)
[2021-04-03] MEDS ORDERED: HYDROmorphone INJ 0.5 MG/0.5 ML SYR IV PRN (11:55)
[2021-04-03] MEDS: SODIUM CHLORIDE 0.9% 1000ML 1,000 ML IV SCH ×2 (14:40→23:07)
[2021-04-03] MEDS: KETOROLAC TROMETHAMINE 15 MG/ML VIAL IV SCH ×2 (14:50→20:08)
[2021-04-03] MEDS ORDERED: TRANEXAMIC ACID / 0.7% NACL 1,000 MG/100 ML BAG IV SCH (17:00)
[2021-04-03] MEDS: FERROUS GLUCONATE 324 MG TAB PO SCH (17:15)
[2021-04-03] MEDS: ceFAZolin 1000MG 1,000 MG/7.5 ML SYR IV SCH (18:03)
[2021-04-03] MEDS: CHOLECALCIFEROL 1,000 UNITS 25 MCG TAB PO SCH (20:09)
[2021-04-03] MEDS: ADVANCED PROBIOTIC 1250 MG CAPSULE PO SCH (20:09)
[2021-04-03] MEDS: MAGNESIUM OXIDE 400 MG TAB PO SCH (20:09)
[2021-04-03] MEDS: CETIRIZINE HCL 10 MG TABLET PO SCH (20:09)
[2021-04-03] MEDS: MELATONIN 3 MG TAB PO SCH (20:10)
[2021-04-03] MEDS: OMEGA-3 (PURIFIED FISH OIL) 1 GM CAP PO SCH (20:10)
[2021-04-03] MEDS: SENNA 8.6 MG TAB PO SCH (20:10)
[2021-04-03] MEDS: DOCUSATE SODIUM 100 MG CAP PO SCH (20:10)
[2021-04-03] MEDS ORDERED: NON-FORMULARY MEDICATION (Coq10 (Ubiquinol) 100 mg Capsule) PO SCH (21:00)
[2021-04-03] MEDS ORDERED: NON-FORMULARY MEDICATION (Milk Thistle 500 mg Capsule) PO SCH (21:00)
[2021-04-03] MEDS ORDERED: LECITHIN SOY 400 MG PO SCH (21:00)
[2021-04-03] MEDS ORDERED: PANTOTHENIC ACID 500 MG PO SCH (21:00)
[2021-04-03] MEDS ORDERED: VITAMIN B PO SCH (21:00)
[2021-04-03] MEDS ORDERED: NON-FORMULARY MEDICATION (Selenium 200 mcg Tablet) PO SCH (21:00)
[2021-04-03] MEDS ORDERED: HAWTHORN PO SCH (21:00)
[2021-04-03] MEDS ORDERED: BOSWELLIA PO SCH (21:00)
[2021-04-03] MEDS ORDERED: [UNRECOGNIZED DRUG - OTHER] PO SCH (21:00)
[2021-04-03] MEDS ORDERED: [UNRECOGNIZED DRUG - OTHER] PO SCH (21:00)
[2021-04-03] MEDS ORDERED: [UNRECOGNIZED DRUG - OTHER] PO SCH (21:00)
[2021-04-03] MEDS ORDERED: METHYLSULFONYLMETHANE 1000 MG PO SCH (21:00)
[2021-04-03] MEDS ORDERED: [UNRECOGNIZED DRUG - OTHER] PO SCH (21:00)
[2021-04-03] MEDS ORDERED: INOSITOL PO SCH (21:00)
[2021-04-04] MEDS: KETOROLAC TROMETHAMINE 15 MG/ML VIAL IV SCH ×4 (01:38→19:52)
[2021-04-04] MEDS: ceFAZolin 1000MG 1,000 MG/7.5 ML SYR IV SCH (01:38)
[2021-04-04 06:44] LABS: Hematocrit (blood only) 35.3 % (37-47); Hemoglobin 11.6 g/dL (12.0-16.0); Mean Corpuscular Hemoglobin 31.8 pg (25-34); Mean Corpuscular Hgb Conc 32.9 g/dL (32-36); Mean Corpuscular Volume 96.7 fL (80-100); Mean Platelet Volume 11.4 fL (7.4-10.4); Platelet Count 230 K/uL (130-400); RDW Coefficient of Variation 13.6 % (11.5-14.5); RDW Standard Deviation 48.6 fL (36.4-46.3); Red Blood Count 3.65 M/uL (4.2-5.4); White Blood Count 7.96 K/uL (4.8-10.8)
[2021-04-04 07:14] LABS: Calcium 9.2 mg/dl (8.5-10.1); Creatinine Clr Calc Pharmacy 61.3 ml/min; Est GFR (African American) 94.8 ml/min; Est GFR (Non-African American) 81.8 ml/min
--- NOTE | 2021-04-04 07:34 | Orthopedic Progress Note ---
Date of Service April 04, 2021 Assessment & Plan (1) Status post total left knee replacement: Pain is well controlled. Continue PT/OT dvt prophylaxis discharge planning: plans on [facility] for rehab. Subjective . 86 year old POD #1 from left tka. Pain is controlled. Not really having much pain yet. Denies chest pain or shortness of breath Review of Systems All systems reviewed & are unremarkable except as noted in HPI & below. Physical Exam .alert and oriented. NAD Left leg: dressing intact. able to do straight leg raise. NVI. Able to dorsiflex and plantarflex. Results & Data Results & Data Laboratory Results . Diagnostic Findings . PG Care Time/CCT Total # of Minutes Spent Total Time Spent with Patient: Total time spent is greater than 50% in coordination of care (as documented) at patient's floor/unit and/or counseling patient: Coding Level of Care Code 45364 Post Operative Follow-Up Diagnoses Status post total left knee replacement Z96.652
[2021-04-04] MEDS: DOCUSATE SODIUM 100 MG CAP PO SCH ×2 (07:44→20:36)
[2021-04-04] MEDS: ADVANCED PROBIOTIC 1250 MG CAPSULE PO SCH ×2 (07:44→20:36)
[2021-04-04] MEDS: MAGNESIUM OXIDE 400 MG TAB PO SCH ×2 (07:44→20:37)
[2021-04-04] MEDS: OMEGA-3 (PURIFIED FISH OIL) 1 GM CAP PO SCH ×2 (07:44→20:36)
[2021-04-04] MEDS: TOCOPHERYL, DL-ALPHA 400 UNITS 180 MG CAP PO SCH (07:45)
[2021-04-04] MEDS: ACETYLCYSTEINE 600 MG CAP PO SCH (07:45)
[2021-04-04] MEDS: LOSARTAN POTASSIUM 25 MG TAB PO SCH (07:45)
[2021-04-04] MEDS: PYRIDOXINE HCL 50 MG TAB PO SCH (07:45)
[2021-04-04] MEDS: CALCIUM 600MG + VIT D 400 IU TAB PO SCH (07:45)
[2021-04-04] MEDS: MONTELUKAST SODIUM 10 MG TABLET PO SCH (07:45)
[2021-04-04] MEDS: guaiFENesin 600 MG TABCR PO SCH (07:46)
[2021-04-04] MEDS: FERROUS GLUCONATE 324 MG TAB PO SCH ×2 (07:46→17:30)
[2021-04-04] MEDS: FOLIC ACID 400 MCG TAB PO SCH (07:46)
[2021-04-04] MEDS: MULTIVITAMIN TAB PO SCH (07:46)
[2021-04-04] MEDS: CYANOCOBALAMIN 500 MCG TABLET (VITAMIN B-12) PO SCH (07:46)
[2021-04-04] MEDS: ASCORBIC ACID 500 MG TAB PO SCH (07:46)
[2021-04-04] MEDS: CHOLECALCIFEROL 1,000 UNITS 25 MCG TAB PO SCH ×2 (07:47→20:36)
[2021-04-04] MEDS: PSYLLIUM 58.6% POWDER PACKET PO SCH (07:47)
[2021-04-04] MEDS ORDERED: dexAMETHasone 10 MG in SYRINGE 0 ML IV SCH (08:00)
[2021-04-04] MEDS ORDERED: [UNRECOGNIZED DRUG - REMARK] PO SCH (09:00)
[2021-04-04] MEDS ORDERED: TURMERIC MS SCH (09:00)
[2021-04-04] MEDS ORDERED: NON-FORMULARY MEDICATION (Amino Acids [Amino Acid] Capsule) PO SCH (09:00)
[2021-04-04] MEDS ORDERED: CHOLINE PO SCH (09:00)
[2021-04-04] MEDS ORDERED: S ADENOSYLMETHIONINE 400 MG PO SCH (09:00)
[2021-04-04] MEDS ORDERED: NON-FORMULARY MEDICATION (Lutein 20 mg Capsule) PO SCH (09:00)
[2021-04-04] MEDS ORDERED: BETA CAROTENE 10000 UNIT PO SCH (09:00)
[2021-04-04] MEDS ORDERED: [UNRECOGNIZED DRUG - OTHER] PO SCH (09:00)
[2021-04-04] MEDS ORDERED: [UNRECOGNIZED DRUG - OTHER] PO SCH (09:00)
[2021-04-04] MEDS ORDERED: MATURE MULTIVITAMIN PO SCH (09:00)
[2021-04-04] MEDS ORDERED: NON-FORMULARY MEDICATION (Turmeric Root Extract 500 mg Capsule) PO SCH (09:00)
[2021-04-04] MEDS ORDERED: QUERCETIN PO SCH (09:00)
[2021-04-04] MEDS ORDERED: [UNRECOGNIZED DRUG - OTHER] PO SCH (09:00)
[2021-04-04] MEDS ORDERED: BIOTIN PO SCH (09:00)
[2021-04-04] MEDS ORDERED: NON-FORMULARY MEDICATION (Ascorbate Calcium-Bioflavonoid [Ester-C With Bioflavonoids] 500- PO SCH (09:00)
--- NOTE | 2021-04-04 09:24 | Anesthesiology Progress Note ---
Date of Service April 04, 2021 Anesthesia Post Procedure Vital Signs Vital Signs: Temp Pulse Pulse Resp BP Pulse Ox 04/04/21 07:02 37.1 C 77 18 155/77 H 96 04/04/21 03:12 37.4 C 87 18 155/74 H 95 04/03/21 23:00 37.3 C 92 H 18 160/78 H 96 04/03/21 19:18 36.7 C 74 18 170/78 H 99 04/03/21 15:00 36.8 C 72 16 155/70 H 99 04/03/21 13:50 36.9 C 74 16 156/83 H 100 04/03/21 12:54 36.6 C 69 16 156/69 H 04/03/21 12:21 36.4 C L 76 16 160/67 H 98 04/03/21 11:50 36.5 C 83 14 150/84 H 97 04/03/21 11:25 78 17 144/86 H 98 04/03/21 11:15 82 12 155/82 H 97 04/03/21 11:05 36.2 C L 79 14 152/77 H 99 04/03/21 10:55 81 15 158/73 H 100 04/03/21 10:45 36.1 C L 88 15 143/66 H 100 Pain Intensity Left Knee: Pain Intensity: 1 Notes Mental Status: alert / awake / arousable and participated in evaluation Patient Amnestic to Procedure: Yes Nausea / Vomiting: adequately controlled Pain: adequately controlled Airway Patency, RR, SpO2: stable & adequate BP & HR: stable & adequate Hydration State: stable & adequate Neuraxial Anesthesia: was administered and sensory block resolved Anesthetic Complications: no major complications apparent
[2021-04-04] MEDS: CETIRIZINE HCL 10 MG TABLET PO SCH (20:37)
[2021-04-04] MEDS: SENNA 8.6 MG TAB PO SCH (20:37)
[2021-04-04] MEDS: MELATONIN 3 MG TAB PO SCH (20:37)
[2021-04-05] MEDS: KETOROLAC TROMETHAMINE 15 MG/ML VIAL IV SCH ×2 (01:22→08:42)
[2021-04-05] MEDS: DOCUSATE SODIUM 100 MG CAP PO SCH (08:39)
[2021-04-05] MEDS: CHOLECALCIFEROL 1,000 UNITS 25 MCG TAB PO SCH (08:39)
[2021-04-05] MEDS: MAGNESIUM OXIDE 400 MG TAB PO SCH (08:39)
[2021-04-05] MEDS: OMEGA-3 (PURIFIED FISH OIL) 1 GM CAP PO SCH (08:39)
[2021-04-05] MEDS: MONTELUKAST SODIUM 10 MG TABLET PO SCH (08:40)
[2021-04-05] MEDS: FOLIC ACID 400 MCG TAB PO SCH (08:40)
[2021-04-05] MEDS: CALCIUM 600MG + VIT D 400 IU TAB PO SCH (08:40)
[2021-04-05] MEDS: MULTIVITAMIN TAB PO SCH (08:40)
[2021-04-05] MEDS: PYRIDOXINE HCL 50 MG TAB PO SCH (08:40)
[2021-04-05] MEDS: ASCORBIC ACID 500 MG TAB PO SCH (08:40)
[2021-04-05] MEDS: ADVANCED PROBIOTIC 1250 MG CAPSULE PO SCH (08:40)
[2021-04-05] MEDS: guaiFENesin 600 MG TABCR PO SCH (08:40)
[2021-04-05] MEDS: FERROUS GLUCONATE 324 MG TAB PO SCH (08:41)
[2021-04-05] MEDS: PSYLLIUM 58.6% POWDER PACKET PO SCH (08:41)
[2021-04-05] MEDS: CYANOCOBALAMIN 500 MCG TABLET (VITAMIN B-12) PO SCH (08:41)
[2021-04-05] MEDS: ACETYLCYSTEINE 600 MG CAP PO SCH (08:41)
[2021-04-05] MEDS: TOCOPHERYL, DL-ALPHA 400 UNITS 180 MG CAP PO SCH (08:41)
[2021-04-05] MEDS: LOSARTAN POTASSIUM 25 MG TAB PO SCH (08:41)
--- NOTE | 2021-04-05 11:04 | Progress Notes ---
DATE: 04/05/2021 SUBJECTIVE: An 86-year-old white female postop day 2 from a left knee replacement. She is doing pretty well. Pain is controlled. Therapy has gone pretty well. No chest pain or shortness of breath. Not feeling dizzy or lightheaded. OBJECTIVE: VITAL SIGNS: Temperature 36.7. Vital signs stable. GENERAL: Shows a pleasant elderly female. She is sitting up in bed this morning and looks quite good. EXTREMITIES: Examination of the left leg reveals the incision to be clean, dry and intact. Some moderate swelling. No bruising. She can dorsiflex and plantarflex her foot appropriately. She is neurologically intact. ASSESSMENT: An 86-year-old white female postop day 2 from a left knee replacement, doing well. Pain is controlled. She is neurologically intact. PLAN: 1. DVT prophylaxis including thigh-high TEDs, SCDs, and aspirin twice a day. 2. PT/OT. She can weightbear as tolerated on the left lower extremity. 3. Pain control, doing well with current pain regimen. 4. Disposition: Plan to discharge to a rehab today if accepted and approved.
--- NOTE | 2021-04-07 07:45 | Discharge Summary ---
Date of Service April 07, 2021 Discharge Data Procedures Performed Operation Date: 04/03/21 08:50 Actual Procedures p Left Total Knee Arthroplasty(Left) - rBian Schilling MD Hospital Course (1) Status post total left knee replacement: This patient is a 86 year old admitted on 04/03/21 and underwent total knee arthroplasty. She tolerated the procedure well and there were no complications. Transferred to the PACU post op and later to the orthopedic floor for further care. She was given ancef for antibiotic prophylaxis. She was also given TRACY stockings, SCDs, and aspirin for DVT prophylaxis. Hemoglobin, hematocrit, and vital signs were monitored during her hospital stay and remained stable. Did not require any blood transfusions. There were no complications during her hospital stay. By post op day #2 the patient was tolerating a regular diet, pain was reasonably controlled with oral pain medicine, and She was participating in physical therapy. On post op day #2 the patient was discharged to a rehab facility. She was given printed discharge instructions including prescriptions for extra strength tylenol, aspirin, and tramadol. Continue physical therapy, weight bearing as tolerated. Continue TRACY stockings. Follow up approximately 2 weeks post op or sooner if there are problems or concerns. Coding Level of Care Code None Diagnoses Status post total left knee replacement Z96.652
== END 2021-04-05 13:43 ==
LOC: ASU 06:53 → 3E 06:53

== ENCOUNTER 2021-07-24 05:12 | Observation (INO) ==
--- NOTE | 2021-06-27 11:40 | Anesthesiology Consultation ---
Date of Service June 27, 2021 Assessment & Plan (1) Encounter for pre-operative examination: - COVID screening: Per assessment on 06/27: Travel screen negative, no known COVID-19 positive contacts or current COVID-19 related symptoms. Patient vaccinated. Surgeon arranging preop COVID testing. Awaiting results. - PCP office visit (03/26/21): Seen by PCP prior to Left TKA (done at [facility] 03/2021) > "Overall her condition is stable. No ongoing issues that will interfere with her scheduled surgery.. She was seen in the office on 03/20/2021 complaining of burning on urination and urinary frequency. Her urinalysis showed evidence of urinary tract infection. She was given a course of Ciprofloxacin 500 mg twice a day for once a week. She is finishing the course." - Left TKA (04/03/21): SAB at L3 (x1 attempt) + PNB at [facility] Chart Review Chart Review: Acceptable Risk for Surgery and Patient NOT seen in Pre Admission Testing History Surgery Operation Date: 07/05/21 09:10 Proposed Procedures p Right Total Knee Arthroplasty - Brian Schilling MD Height/Weight Height: 5 ft 1 in Weight: 77.111 kg Allergies Allergy/AdvReac Type Severity Reaction Status Date / Time No Known Drug Allergies Allergy Unknown Verified 06/27/21 09:56 ENVIRONMENTAL ALLERGIES AdvReac Mild Congestion Uncoded 06/27/21 09:56 Medications Home Medications Medication Instructions Recorded Confirmed Last Taken albuterol sulfate 90 mcg/actuation 2 puff INHALATION QID PRN 08/20/18 06/27/21 04/02/21 22:30 aerosol inhaler (Ventolin HFA) guaifenesin 1,200 mg tablet, 1,200 mg PO QAM 08/20/18 06/27/21 08/20/18 extended release 12 hr (Mucinex) meloxicam 15 mg tablet 15 mg PO HS 08/20/18 06/27/21 3 Days Ago ~03/31/21 pseudoephedrine HCl 120 mg 120 mg PO Q12H PRN 08/20/18 06/27/21 04/02/21 08:00 tablet,extended release (Sudafed 12 Hour) psyllium husk 3.4 gram/5.4 gram 1 tbsp PO DAILY 08/20/18 06/27/21 04/02/21 22:30 oral powder (Metamucil) Aakd (No2) 1 dose PO QAM 08/21/18 06/27/21 2 Weeks Ago ~03/20/21 B.breve-L.acid-L.rham-S. 1 tab PO BID 08/21/18 06/27/21 04/02/21 08:00 thermophilus 3 billion cell chewable tablet (Probiotic) Bioflavonoids, [place] 1,000 mg PO QAM 08/21/18 06/27/21 2 Weeks Ago ~03/20/21 Biotin 1,500 mcg PO QAM 08/21/18 06/27/21 08/20/18 Boswellia 500 mg PO BID 08/21/18 06/27/21 2 Weeks Ago ~03/20/21 Options Trader's Broom 500 mg PO BID 08/21/18 06/27/21 2 Weeks Ago ~03/20/21 Choline 250 mg PO QAM 08/21/18 06/27/21 2 Weeks Ago ~03/20/21 Dmg 200 mg PO QAM 08/21/18 06/27/21 2 Weeks Ago ~03/20/21 Enzyme (For Gluten, Gas, Lactose) 1 dose PO AC 08/21/18 06/27/21 2 Weeks Ago ~03/20/21 Eyebright 500 mg PO BID 08/21/18 06/27/21 2 Weeks Ago ~03/20/21 Inulin 1 tsp PO UD 08/21/18 06/27/21 08/20/18 Mature Multivitamin 1 dose PO DAILY 08/21/18 06/27/21 2 Weeks Ago ~03/20/21 Mesoglycan 50 mg PO BID 08/21/18 06/27/21 2 Weeks Ago ~03/20/21 Quercetin 2 tab PO QAM 08/21/18 06/27/21 2 Weeks Ago ~03/20/21 Vein [place] (Prickly Marty+) 500 mg PO BID 08/21/18 06/27/21 2 Weeks Ago ~03/20/21 Vitamin B-100 1 dose PO QPM 08/21/18 06/27/21 04/02/21 08:00 Vitamin B6 50 mg PO QAM 08/21/18 06/27/21 04/02/21 08:00 acetylcysteine 600 mg capsule (NAC) 600 mg PO QAM 08/21/18 06/27/21 04/03/21 05:30 amino acids (Amino Acid) 1,000 mg PO QAM 08/21/18 06/27/21 2 Weeks Ago ~03/20/21 ascorbate calcium-bioflavonoid 500 1 tab PO QAM 08/21/18 06/27/21 2 Weeks Ago mg-200 mg tablet (Isabel-C with ~03/20/21 Bioflavonoids) ascorbic acid (vitamin C) 500 mg 500 mg PO QAM 08/21/18 06/27/21 2 Weeks Ago tablet (Vitamin C) ~03/20/21 beta carotene 10,000 unit capsule 15,000 unit PO QAM 08/21/18 06/27/21 2 Weeks Ago ~03/20/21 calcium carbonate 500 mg (1,250 1 tab PO QAM 08/21/18 06/27/21 04/02/21 08:00 mg)-vitamin D3 200 unit tablet (Calcium 500 + D) cholecalciferol (vitamin D3) 50 2,000 unit PO BID 08/21/18 06/27/21 04/02/21 22:30 mcg (2,000 unit) tablet (Vitamin D3) coQ10 (ubiquinol) 100 mg capsule 100 mg PO QPM 08/21/18 06/27/21 2 Weeks Ago ~03/20/21 folic acid 400 mcg tablet 0.4 mg PO QAM 08/21/18 06/27/21 04/02/21 08:00 garlic 1,000 mg capsule 1,000 mg PO BID 08/21/18 06/27/21 2 Weeks Ago ~03/20/21 ginkgo biloba 60 mg capsule 60 mg PO BID 08/21/18 06/27/21 2 Weeks Ago ~03/20/21 glucosamine sulfate 500 mg tablet 750 mg PO BID 08/21/18 06/27/21 2 Weeks Ago (Glucosamine) ~03/20/21 hawthorn 500 mg capsule 1 cap PO BID 08/21/18 06/27/21 2 Weeks Ago ~03/20/21 hyalur ac-chond sul-colg II-AA 40 200 mg PO BID 08/21/18 06/27/21 2 Weeks Ago mg-80 mg-400 mg capsule ~03/20/21 (Hyaluronic Acid(with chondroitin-collagenII)) inositol 500 mg tablet 500 mg PO QPM 08/21/18 06/27/21 08/20/18 lecithin, soy 400 mg capsule 400 mg PO BID 08/21/18 06/27/21 2 Weeks Ago ~03/20/21 lutein 20 mg capsule 20 mg PO QAM 08/21/18 06/27/21 2 Weeks Ago ~03/20/21 magnesium 250 mg tablet 250 mg PO BID 08/21/18 06/27/21 2 Weeks Ago ~03/20/21 melatonin 10 mg capsule 10 mg PO HS 08/21/18 06/27/21 04/02/21 22:30 methylsulfonylmethane 1,000 mg 1,000 mg PO BID 08/21/18 06/27/21 08/20/18 capsule (MSM) milk thistle 500 mg capsule 1,000 mg PO BID 08/21/18 06/27/21 2 Weeks Ago ~03/20/21 omega 2-eld-jum-fish oil 1,000 mg 1 cap PO BID 08/21/18 06/27/21 2 Weeks Ago (120 mg-180 mg) capsule (Fish Oil) ~03/20/21 pantothenic acid (vit B5) 500 mg 500 mg PO QPM 08/21/18 06/27/21 2 Weeks Ago tablet ~03/20/21 s-adenosylmethionine 400 mg tablet 400 mg PO QAM 08/21/18 06/27/21 2 Weeks Ago (Juan-E) ~03/20/21 selenium 200 mcg tablet 200 mcg PO QPM 08/21/18 06/27/21 2 Weeks Ago ~03/20/21 turmeric (bulk) 95 % powder 500 mg MISCELLANEOUS QAM 08/21/18 06/27/21 2 Weeks Ago (Curcumin) ~03/20/21 turmeric root extract 500 mg 500 mg PO QAM 08/21/18 06/27/21 2 Weeks Ago capsule ~03/20/21 vitamin B12 500 mcg-folic acid 400 1 tab PO QAM 08/21/18 06/27/21 04/02/21 08:00 mcg tablet vitamin E 400 unit capsule 400 unit PO QAM 08/21/18 06/27/21 2 Weeks Ago ~03/20/21 cetirizine 10 mg tablet (Zyrtec) 10 mg PO HS 02/06/21 06/27/21 04/02/21 22:30 montelukast 10 mg tablet 10 mg PO QAM 02/06/21 06/27/21 04/02/21 08:00 (Singulair) Марина Kill Ii 2 tab PO DAILY 02/08/21 06/27/21 2 Weeks Ago ~03/20/21 Gi Revive 1 tsp PO DAILY 02/08/21 06/27/21 2 Weeks Ago ~03/20/21 Neuro Mag 2 tab PO DAILY 02/08/21 06/27/21 2 Weeks Ago ~03/20/21 Two Per Day 1 tab PO DAILY 02/08/21 06/27/21 04/02/21 08:00 losartan 25 mg tablet 25 mg PO BID 02/23/21 06/27/21 04/02/21 08:00 tramadol 50 mg tablet 50 - 100 mg PO Q6H PRN #40 tab 04/04/21 06/27/21 Unknown aspirin 81 mg tablet,delayed 81 mg PO QAM 06/27/21 06/27/21 Unknown release Past Medical History Medical History Asthma Glaucoma Hearing deficit History of anemia History of GI bleed r/t plavix (since discontinued) Hyperlipidemia "borderline" Hypertension "borderline" IBS (irritable bowel syndrome) resolved Osteoarthritis Right knee DJD Stroke 07/2018 > no residual effects, plavix discontinued (hx GIB) SVT (supraventricular tachycardia) Episode SVT during 04/2020 stress test (lasting approximately 50 seconds) converting to SR with carotid massage Uterine fibroid Past Family History Family History Family/Other Family history of diabetes mellitus Other No family history of adverse response to anesthesia Past Surgical History Surgical History History of arthroscopy Right knee History of cataract surgery R/L History of colonoscopy History of gynecologic surgery Anterior cystocele repair History of herniorrhaphy History of surgical procedure on eye proper using laser R/L (for glaucoma) History of tonsillectomy History of tooth extraction History of total knee replacement Left TKA (04/03/21): SAB at L3 (x1 attempt) + PNB at [facility] Nasal polyps s/p excision Sigmoidoscopy exam Social History Smoking Status: Never smoker Do You Dip or Chew Tobacco: No Hx Alcohol Use: Yes Alcohol type: wine alcohol intake frequency: a few times a month Hx Substance Use: No substance use type: does not use Lab Results Anesthesia Preop Results Results Anesthesia Widget: WBC 9.02 K/uL (4.8-10.8) 06/26/21 Hgb 12.4 g/dL (12.0-16.0) 06/26/21 Hct 38.4 % (37-47) 06/26/21 Plt 297 K/uL (130-400) 06/26/21 Na 140 mmol/L (136-145) 06/26/21 K 4.1 mmol/L (3.5-5.1) 06/26/21 Cl 107 mmol/L (98-107) 06/26/21 CO2 28 mmol/L (21-32) 06/26/21 BUN 24 mg/dl (7-18) H 06/26/21 Creat 0.52 mg/dl (0.6-1.2) L 06/26/21 Glucose Level 66 mg/dl (70-99) L 06/26/21 PT 9.9 Seconds (9.0-12.0) 06/26/21 INR 1.0 (0.9-1.1) 06/26/21 Blood Type A Negative 06/26/21 Antibody Screen NEGATIVE 06/26/21 Testing Electrocardiogram Date: 06/26/21 SR with first degree AVB at 71bpm. PACs. RBBB. Chest X-Ray Date: 02/08/21 FINDINGS: Cardiomediastinal and hilar silhouettes are within normal limits. Patient is mildly rotated on the lateral view. Calcific plaque of the thoracic aorta. No pneumothorax, pleural effusion, airspace consolidation or overt pulmonary edema. Bones of the chest appear grossly intact. IMPRESSION: No acute process. Stress Test Date: 05/04/20 Type: exercise Negative stress echo/exercise ECG for ischemia at 137% MPHR. Immediately into recovery, SVT occurred lasting approximately 50 seconds converting to sinus rhythm with carotid massage. Upon questioning, she admitted to palpitations. No chest pain. Fair exercise tolerance. EF 60-65%. Mild concentric LVH. No significant valvular disease.
--- NOTE | 2021-07-19 23:47 | History and Physical Report ---
DATE OF ADMISSION: 07/24/2021. CHIEF COMPLAINT: Persistent right knee pain and discomfort. HISTORY OF PRESENT ILLNESS: The patient is an 86-year-old female who presents now for surgical treatment of her right knee. She has got a long history of knee problems and had her left knee replaced about 3-1/2 months ago. She has done well from this. She was actually scheduled for right knee surgery, but it got canceled due to the COVID epidemic issues. She has continued to be bothered by knee pain. She had been through extensive conservative treatment in the past. She had her knee scoped in 2018, which did not help at all. She describes global pain. She would now like to have her right knee fixed. PAST MEDICAL HISTORY: Significant for, 1. Cerebrovascular disease with a history of stroke 2 years ago without any residual sequelae. 2. Hypertension. 3. Elevated cholesterol. 4. Mild obesity. 5. Osteoarthritis. PAST SURGICAL HISTORY: Previous surgeries include, 1. Right knee scope done [place] [address] Lentz. 2. Nasal polyp removal. 3. Eye surgery. 4. Tonsillectomy. 5. Cataract surgery. 6. Glaucoma. 7. Left knee replacement done on 04/03/2021. ALLERGIES: None. CURRENT MEDICATIONS: Include, 1. Albuterol. 2. Vitamin C. 3. Aspirin. 4. Probiotic. 5. Various supplements. 6. Vitamin D3. 7. Folic acid. 8. Garlic. 9. Insulin. 10. Lansoprazole. 11. Mucinex. 12. Ginkgo biloba. 13. Lecithin. 14. Losartan. 15. Lutein. 16. Magnesium. 17. Multivitamin. 18. Melatonin. 19. Meloxicam. 20. Vitamin D5. 21. Potassium. 22. Sudafed. 23. Metamucil. 24. Multivitamins. SOCIAL HISTORY: An 86-year-old female. Does not smoke or drink alcohol. FAMILY HISTORY: Noncontributory. REVIEW OF SYSTEMS: Significant for several mini strokes without sequelae. No chest pain or shortness of breath. No history of DVT or PE. PHYSICAL EXAMINATION: GENERAL: Shows a pleasant, elderly female. Looks to be in pretty good health. HEENT: Benign. NECK: Supple. No lymphadenopathy. LUNGS: Clear to auscultation. HEART: Regular rate and rhythm. ABDOMEN: Soft, nontender, nondistended. EXTREMITIES: Grossly neurovascularly intact except as follows: Examination of both knees reveals the patient walks independently. Examination of the right knee reveals fairly thin soft tissue envelope. She has got a moderate-sized knee effusion. She is tender diffusely around her knee. Her range of motion is about 5 degrees short of full extension to 115 degrees of flexion. There is no instability. No pain with hip motion: Examination of the left knee reveals a well-healed incision. Minimal swelling. Range of motion is 0 to 120. IMAGING DATA: X-rays of the right knee reveal advanced right knee medial compartment DJD. She has got complete loss of medial joint space. Fairly significant cyst of her medial femoral condyle and medial tibial plateau. ASSESSMENT: An 86-year-old white female now 3-1/2 months out from left knee replacement with advanced right knee degenerative joint disease. She has failed conservative treatment. She would like to proceed with right knee replacement. PLAN: We will take her to the operating room and do a right total knee replacement. The risks and benefits of this procedure were explained to the patient to include, but not limited to, DVT, PE, , infection, neurological injury, vascular injury, bleeding problem, pain, limited range of motion, stiffness, failure to relieve her symptoms, incomplete relief of symptoms, need for further surgery in the future, fracture, leg length inequality, nerve palsy, etc. The patient understands and desires to proceed. Informed consent was obtained. As far as discharge plans, she is planning to be discharged to [facility]. Job ID: [id number] [facility]
[~2021-07-24 05:12] MED LIST changes: -BUPIVACAINE 0.25% 30 ML VIAL ONE; -BUPIVACAINE 0.5 % 5 MG/1 ML PF 10ML VIAL ONE
[2021-07-24] MEDS ORDERED: ACETAMINOPHEN 500 MG TAB PO SCH (06:00)
[2021-07-24] MEDS ORDERED: FAMOTIDINE 20 MG TAB PO SCH (06:00)
[2021-07-24] MEDS ORDERED: LR 500ML BOLUS, THEN 15ML/HR IV SCH (06:00)
[2021-07-24] MEDS ORDERED: TRANEXAMIC ACID 1,000 MG **IV Intra-op IV SCH (06:00)
[2021-07-24] MEDS ORDERED: ceFAZolin 2000MG 2,000 MG/15 ML SYR IV SCH (06:00)
[2021-07-24] MEDS ORDERED: GABAPENTIN 300 MG CAP PO SCH (06:00)
[2021-07-24] MEDS ORDERED: BUPIVACAINE LIPOSOME/PF 266 MG, BUPIVACAINE/EPINEPHRINE 50 ML, SODIUM CHLORIDE 0.9% 30 ... INFIL SCH (06:00)
[2021-07-24] MEDS ORDERED: LR 60ML/HR IV SCH (06:00)
[2021-07-24] MEDS ORDERED: BUPIVACAINE 0.5 % 5 MG/1 ML PF 10ML VIAL ONE (06:25)
[2021-07-24] MEDS ORDERED: fentaNYL citrate 100 MCG/2 ML VIAL IV PRN (06:31)
[2021-07-24] MEDS ORDERED: ePHEDrine sulfate 50 MG/ML AMP IV PRN (06:31)
[2021-07-24] MEDS ORDERED: ONDANSETRON INJ 2 MG/ML 2 ML VIAL IV PRN ×2 (06:31→10:11)
[2021-07-24] MEDS ORDERED: ATROPINE SULFATE 0.1 MG/ML 10ML SYR IV PRN (06:31)
[2021-07-24] MEDS ORDERED: SODIUM CHLORIDE 0.9% PF 50 ML VIAL ONE (06:38)
[2021-07-24] MEDS ORDERED: BUPIVACAINE 0.25% 30 ML VIAL ONE (06:38)
[2021-07-24] MEDS ORDERED: BUPIVACAINE LIPOSOME 1.3% 266 MG/20 ML VIAL ONE (06:38)
[2021-07-24] MEDS ORDERED: EPINEPHrine INJ 1 MG/ML AMP ONE (06:39)
[2021-07-24] MEDS ORDERED: LIDOCAINE 2% 2 ML VIAL/AMP(20MG/ML) INFIL ONE (06:44)
[2021-07-24] MEDS ORDERED: PROPOFOL IV EMULSION 10 MG/ML 20 ML VIAL IV ONE (06:44)
[2021-07-24] MEDS ORDERED: MIDAZOLAM HCL 1 MG/ML 2ML VIAL ONE (06:45)
[2021-07-24] MEDS ORDERED: fentaNYL citrate 100 MCG/2 ML VIAL ONE (06:45)
--- NOTE | 2021-07-24 06:56 | History & Physical Bridge Note ---
Date of Service July 24, 2021 History & Physical Bridge Note I have examined the patient, reviewed the History & Physical and in the interval since the performance of the History & Physical I have noted the following changes of clinical significance: no changes noted
--- NOTE | 2021-07-24 08:58 | Operative Report ---
Post Operative Report Pre & Post Diagnosis Operation Date: 07/24/21 07:00 Pre-Op Diagnosis: Right Knee Osteoarthritis Post-Op Diagnosis: Right Knee Osteoarthritis I identified the patient and participated in the time-out.: Yes Procedure Operation Date: 07/24/21 07:00 Actual Procedures p Right Total Knee Arthroplasty(Right) - Brian Schilling MD Surgeon Brian Schilling MD Spark Plug Assembler FREYA Kang Estimated Blood Loss 50 Findings Consistent with Post-Op Diagnosis Operative findings were advanced right knee DJD. She had extensive grade 4 [id number] disease of the medial compartment with eburnation of the medial femoral condyle medial tibial plateau. She had osteophytes and cystic changes medially as well. Moderate-sized joint effusion. Slight flexion contracture. Fluids 1000 cc Specimens Right knee sent for pathology Drains None Anesthesia Type Spinal MAC Complications none Indications Patient is an 86-year-old independent female has had a long history of bilateral knee pain discomfort. She been through extensive conservative treatment the past. She had her left knee replaced about 4 months ago is done well from this. She continues to be limited by right knee pain discomfort stiffness. She elected proceed with total knee arthroplasty. Description of Procedure Operative implants consist of: 1. Biomet Vanguard size 62.5 right posterior stabilized femoral component. 2. Biomet size 63 tibial tray. 3. 10 mm posterior stabilized polyethylene insert. 4. 31 x 8 all polypatella. The patient was taken to the operating, identified, placed on the operating table supine position but a contractors were properly padded. IV antibiotics tried by anesthesia team. Spinal anesthetic and abductor canal block had been provided in the holding area. Dolan catheter was placed in sterile fashion. Right thigh turn was then placed in the right lower extremities then prepped and draped in usual sterile fashion. The right leg was elevated exsanguinated with use of an Esmarch and turns placed at 3 mmHg. An anterior approach to the right knee was then performed through longitudinal incision centered over the patella. Sharp dissection was carried through subcutaneous tissue down the extensor mechanism. A medial parapatellar arthrotomy incision was made. Some subperiosteal dissection was carried out medially. The fat pad was resected from each patella tendon. Lateral patellofemoral ligament was released. Patella subluxated laterally knee was flexed. The osteophyte taken off distal femur. The ACL and PCL were then released from distal femur the tibia subluxated anteriorly. The external tibial alignment jig was then placed in the interface the tibia and adjusted 14 mm medially. Proximal tibial cut was made remove about a millimeter or 2 of bone from most deficient aspect medial till plateau. Some osteophytes were taken off medial and posterior medially. The tibia was then sized to a size 63. Attention drawn the femur. The distal femur was entered with the sharp drill. The intramedullary canal was suction. A right 5 degree valgus cutting guide was placed. Distal femoral cutting block was pinned in place but distal femoral cut was made to take an additional 3 mm bone off distal femur. The femur was then sized to a size 62.5. We downsized this slightly. The 8 cutting block was pinned parallel to the epicondylar axis which was 4 degrees of external rotation. Anterior cut, anterior chamfer, posterior cut, posterior chamfer cuts were made. The box cutting guide was placed in just slight lateral and the box cut was made. The knee was flexed. The remnants of the medial and lateral menisci were excised. The osteophytes were taken off the posterior aspect the femur. A trial femoral component was placed. The tibial tray was pinned in maximum external rotation and the drill and stem punch were used to create defect in proximal tibia for the tibial tray. The knee was then trialed and the 10 mm insert fit most appropriately. Attention drawn the patella. Patella was cleaned of all soft tissues. Patella was quite thin and measured about 18 mm in thickness. We cut this down to 12. Was sized to a size 31 patella. The lug holes were drilled for 31 patella. The lateral osteophyte was removed. Patella button was placed. Knee was taken through range of motion patella tracked nicely with no thumbs test. Attention drawn to placing permanent components. All trial components were removed. Bone plug was placed in the distal femur limit blood loss. Double batch Palacos G cement was mixed. Biomet Vanguard size 62.5 right posterior stabilized femoral component, size 63 tibial tray, a 10 mm posterior stabilized polyethylene insert, and a 31 x 8 all polypatella then cemented in place. The knee was brought out into full extension total cement hardened. Final cement check was then performed. Pericapsular tissues were injected with total 100 cc of combination of 20 cc of Exparel, 30 cc normal saline, 50 cc of quarter percent Marcaine with epinephrine. Patient did receive 1 g tranexamic acid but the tourniquet was let down for turn time 50 minutes. Hemostasis reduced electrocautery. There was once again irrigated. Extensor mechanism closed with combination 1 PDS suture #1 Vicryl suture in a [id number] fashion. The extensor mechanism checked found to be intact the subcutaneous tissue then closed with 2 Dexon suture in a buried interrupted fashion skin was closed with skin christoph. Legs then cleaned and dried and sterile dressing was Xeroform, 4 x 4's, sterile cast padding, Dennys bandage were applied. Patient then transferred to the recovery room in stable condition. Patient tolerated procedure well and there were no complications. Fab Kang, my physician assistant foreman, was present for the entire procedure. His assistance was essential and required for appropriate patient positioning, prepping and draping, surgical exposure, performing the technical details of the operation, placement the implants, closure of the wound, and placement of the sterile bandage. I attest to the content of the Intraoperative Record and any orders documented therein. Any exceptions are noted below.
--- NOTE | 2021-07-24 09:20 | Anesthesiology Progress Note ---
Date of Service July 24, 2021 Anesthesia Post Procedure Vital Signs Vital Signs: Temp Pulse Pulse Resp BP Pulse Ox 07/24/21 09:15 85 14 123/55 L 96 07/24/21 09:05 83 19 109/52 L 100 07/24/21 08:55 97.7 F 82 19 134/56 L 100 07/24/21 06:27 98.4 F 80 18 176/77 H 98 Transfer of Care Handoff Completed per policy Notes Mental Status: alert / awake / arousable and participated in evaluation Patient Amnestic to Procedure: Yes Nausea / Vomiting: adequately controlled Pain: adequately controlled Airway Patency, RR, SpO2: stable & adequate BP & HR: stable & adequate Hydration State: stable & adequate Neuraxial Anesthesia: was administered and sensory block is resolving Anesthetic Complications: no major complications apparent and Pt Satisfied with anesthetic care
--- NOTE | 2021-07-24 09:50 | XRay Report ---
RIGHT KNEE 2 VIEWS History: Right total knee arthroplasty. Degenerative arthritis. Postop. FINDINGS: The patient is status post a right total knee arthroplasty. The hardware is intact. No frac ture or dislocation. Skin christoph are in place. IMPRESSION: Right total knee arthroplasty. No evidence for hardware complication. ACT 112: Negative or not required by law. Electronically signed by: Meng Evans M.D. 07/24/2021 9:48 AM
[2021-07-24] MEDS ORDERED: BIOTIN PO SCH (10:11)
[2021-07-24] MEDS ORDERED: QUERCETIN PO SCH (10:11)
[2021-07-24] MEDS ORDERED: BETA CAROTENE 10000 UNIT PO SCH (10:11)
[2021-07-24] MEDS ORDERED: [UNRECOGNIZED DRUG - OTHER] PO SCH (10:11)
[2021-07-24] MEDS ORDERED: [UNRECOGNIZED DRUG - OTHER] PO SCH (10:11)
[2021-07-24] MEDS ORDERED: [UNRECOGNIZED DRUG - OTHER] PO SCH (10:11)
[2021-07-24] MEDS ORDERED: NON-FORMULARY MEDICATION (Milk Thistle 500 mg Capsule) PO SCH (10:11)
[2021-07-24] MEDS ORDERED: BOSWELLIA PO SCH (10:11)
[2021-07-24] MEDS ORDERED: CHOLINE PO SCH (10:11)
[2021-07-24] MEDS ORDERED: ALUMINUM/MAGNESIUM SUSP 30 ML UDC PO PRN (10:11)
[2021-07-24] MEDS ORDERED: NALOXONE HCL 0.4 MG/1 ML VIAL/CARP IV PRN (10:11)
[2021-07-24] MEDS ORDERED: NON-FORMULARY MEDICATION (Amino Acids [Amino Acid] Capsule) PO SCH (10:11)
[2021-07-24] MEDS ORDERED: [UNRECOGNIZED DRUG - MIXTURE] PO SCH (10:11)
[2021-07-24] MEDS ORDERED: NON-FORMULARY MEDICATION (Turmeric Root Extract 500 mg Capsule) PO SCH (10:11)
[2021-07-24] MEDS ORDERED: [UNRECOGNIZED DRUG - OTHER] PO SCH (10:11)
[2021-07-24] MEDS ORDERED: MATURE MULTIVITAMIN PO SCH (10:11)
[2021-07-24] MEDS ORDERED: METHYLSULFONYLMETHANE 1000 MG PO SCH (10:11)
[2021-07-24] MEDS ORDERED: GINKGO BILOBA 60 MG PO SCH (10:11)
[2021-07-24] MEDS ORDERED: [UNRECOGNIZED DRUG - OTHER] PO SCH (10:11)
[2021-07-24] MEDS ORDERED: MAGNESIUM HYDROXIDE SUSP 30 ML UDC PO PRN (10:11)
[2021-07-24] MEDS ORDERED: NON-FORMULARY MEDICATION (Ascorbate Calcium-Bioflavonoid [Ester-C With Bioflavonoids] 500- PO SCH (10:11)
[2021-07-24] MEDS ORDERED: TURMERIC MS SCH (10:11)
[2021-07-24] MEDS ORDERED: [UNRECOGNIZED DRUG - OTHER] PO SCH (10:11)
[2021-07-24] MEDS ORDERED: [UNRECOGNIZED DRUG - OTHER] PO SCH (10:11)
[2021-07-24] MEDS ORDERED: NON-FORMULARY MEDICATION (Lutein 20 mg Capsule) PO SCH (10:11)
[2021-07-24] MEDS ORDERED: HAWTHORN PO SCH (10:11)
[2021-07-24] MEDS ORDERED: NON-FORMULARY MEDICATION (Magnesium 250 mg Tablet) PO SCH (10:11)
[2021-07-24] MEDS ORDERED: PSYLLIUM HUSK PO SCH (10:11)
[2021-07-24] MEDS ORDERED: HYDROmorphone INJ 0.5 MG/0.5 ML SYR IV PRN (10:11)
[2021-07-24] MEDS ORDERED: ALBUTEROL HFA 8 GM INHALER INH PRN (10:11)
[2021-07-24] MEDS ORDERED: bisacodyL 10 MG SUPP PR PRN (10:11)
[2021-07-24] MEDS ORDERED: METOCLOPRAMIDE HCL INJ 5 MG/ML 2 ML VIAL IV PRN (10:11)
[2021-07-24] MEDS: SODIUM CHLORIDE 0.9% 1000ML 1,000 ML IV SCH ×2 (10:55→19:41)
[2021-07-24] MEDS ORDERED: FEXOFENADINE HCL 180 MG TAB PO SCH ×2 (11:00→21:00)
[2021-07-24] MEDS: TOCOPHERYL, DL-ALPHA 400 UNITS 180 MG CAP PO SCH (11:08)
[2021-07-24] MEDS: DOCUSATE SODIUM 100 MG CAP PO SCH ×2 (11:08→21:18)
[2021-07-24] MEDS: ASPIRIN 81 MG ECTAB PO SCH ×2 (11:10→21:17)
[2021-07-24] MEDS: guaiFENesin 600 MG TABCR PO SCH (11:10)
[2021-07-24] MEDS: FOLIC ACID 400 MCG TAB PO SCH (11:10)
[2021-07-24] MEDS: LOSARTAN POTASSIUM 25 MG TAB PO SCH ×2 (11:11→21:17)
[2021-07-24] MEDS: MULTIVITAMIN TAB PO SCH (11:11)
[2021-07-24] MEDS: MONTELUKAST SODIUM 10 MG TABLET PO SCH (11:11)
[2021-07-24] MEDS: ACETYLCYSTEINE 600 MG CAP PO SCH (11:12)
[2021-07-24] MEDS: CALCIUM 600MG + VIT D 400 IU TAB PO SCH (11:12)
[2021-07-24] MEDS: GLUCOSAMINE SULFATE 500 MG CAP PO SCH ×2 (11:13→21:18)
[2021-07-24] MEDS: CHOLECALCIFEROL 1,000 UNITS 25 MCG TAB PO SCH ×2 (11:13→21:16)
[2021-07-24] MEDS: PYRIDOXINE HCL 50 MG TAB PO SCH (11:14)
[2021-07-24] MEDS: VITAMIN B COMPLEX TAB PO SCH (11:14)
[2021-07-24] MEDS: ASCORBIC ACID 500 MG TAB PO SCH (11:14)
[2021-07-24] MEDS: KETOROLAC TROMETHAMINE 15 MG/ML VIAL IV SCH ×3 (11:17→23:03)
[2021-07-24] MEDS ORDERED: GAS PO SCH (11:30)
[2021-07-24] MEDS ORDERED: ENZYME PO SCH (11:30)
[2021-07-24] MEDS ORDERED: LACTOSE PO SCH (11:30)
[2021-07-24] MEDS: ACETAMINOPHEN 500 MG TAB PO SCH ×2 (13:39→21:17)
[2021-07-24] MEDS: ceFAZolin 2000MG 2,000 MG/15 ML SYR IV SCH ×2 (13:40→23:03)
--- NOTE | 2021-07-24 16:34 | Progress Notes ---
DATE OF NOTE: 07/24/2021. SUBJECTIVE: An 86-year-old female postop from a right knee replacement. She is doing well. Not hav ing any pain yet. No chest pain or shortness of breath. Not feeling dizzy or lightheaded. OBJECTIVE: VITAL SIGNS: Temperature 36.7. Vital signs are stable. GENERAL: Shows a pleasant, elderly female. Lying in bed, looks comfortable. LUNGS: Clear to auscultation. HEART: Has a regular rate and rhythm. ABDOMEN: Soft, nontender, nondistended. EXTREMITIES: Grossly neurovascularly intact except as follows. Examination of the right leg reveals the dressing to be clean, dry and intact. She is able to lift h er leg on her own. She can dorsiflex and plantarflex her foot appropriately. Her toes are pink with brisk refill. X-RAYS: X-rays of the right knee from recovery room are reviewed. The patient has a right cemented posterior stabilized total knee arthroplasty. Components looked to be in good position. No signs of problems. ASSESSMENT: An 86-year-old female postop from a right knee replacement, doing well. Pain is control led. She is neurologically intact. PLAN: 1. DVT prophylaxis include thigh-high TEDs, SCDs, and aspirin twice daily. 2. PT, OT, weightbear as tolerated. Right total knee protocol. 3. Pain control, doing well with current pain regimen. 4. IV antibiotics x24 hours. 5. Disposition: She is hoping to be discharged to [facility] similar to last time. She lives alone and will not be safe going home. Job ID: [id number]
[2021-07-24] MEDS ORDERED: INOSITOL PO SCH (21:00)
[2021-07-24] MEDS ORDERED: SENNA 8.6 MG TAB PO SCH (21:00)
[2021-07-24] MEDS ORDERED: NON-FORMULARY MEDICATION (Selenium 200 mcg Tablet) PO SCH (21:00)
[2021-07-24] MEDS ORDERED: THIAMINE HCL 100 MG TAB PO SCH (21:00)
[2021-07-24] MEDS ORDERED: PANTOTHENIC ACID 500 MG PO SCH (21:00)
[2021-07-24] MEDS ORDERED: NON-FORMULARY MEDICATION (Coq10 (Ubiquinol) 100 mg Capsule) PO SCH (21:00)
[2021-07-24] MEDS ORDERED: MELATONIN 3 MG TAB PO SCH (22:00)
[2021-07-25] MEDS: traMADol HCL 50 MG TABLET PO PRN ×2 (04:17→10:39)
[2021-07-25] MEDS: ACETAMINOPHEN 500 MG TAB PO SCH ×2 (05:11→13:48)
[2021-07-25] MEDS: KETOROLAC TROMETHAMINE 15 MG/ML VIAL IV SCH ×2 (05:12→11:57)
[2021-07-25 06:29] LABS: Hematocrit (blood only) 32.1 % (37-47); Hemoglobin 10.4 g/dL (12.0-16.0); Mean Corpuscular Hemoglobin 30.5 pg (25-34); Mean Corpuscular Hgb Conc 32.4 g/dL (32-36); Mean Corpuscular Volume 94.1 fL (80-100); Mean Platelet Volume 11.7 fL (7.4-10.4); Platelet Count 219 K/uL (130-400); RDW Coefficient of Variation 14.9 % (11.5-14.5); RDW Standard Deviation 50.8 fL (36.4-46.3); Red Blood Count 3.41 M/uL (4.2-5.4); White Blood Count 8.53 K/uL (4.8-10.8)
[2021-07-25 07:00] LABS: BUN Creatinine Ratio 26.9 (10-20); Calcium 9.2 mg/dl (8.5-10.1); Est GFR (African American) 58.1 ml/min; Est GFR (Non-African American) 50.1 ml/min
[2021-07-25] MEDS ORDERED: dexAMETHasone 10 MG in SYRINGE 0 ML IV SCH (08:00)
[2021-07-25] MEDS: DOCUSATE SODIUM 100 MG CAP PO SCH (09:26)
[2021-07-25] MEDS: ASPIRIN 81 MG ECTAB PO SCH (09:27)
[2021-07-25] MEDS: LOSARTAN POTASSIUM 25 MG TAB PO SCH (09:27)
[2021-07-25] MEDS: TOCOPHERYL, DL-ALPHA 400 UNITS 180 MG CAP PO SCH (09:27)
[2021-07-25] MEDS: ACETYLCYSTEINE 600 MG CAP PO SCH (09:27)
[2021-07-25] MEDS: GLUCOSAMINE SULFATE 500 MG CAP PO SCH (09:28)
[2021-07-25] MEDS: VITAMIN B COMPLEX TAB PO SCH (09:28)
[2021-07-25] MEDS: ASCORBIC ACID 500 MG TAB PO SCH (09:28)
[2021-07-25] MEDS: CALCIUM 600MG + VIT D 400 IU TAB PO SCH (09:28)
[2021-07-25] MEDS: MONTELUKAST SODIUM 10 MG TABLET PO SCH (09:28)
[2021-07-25] MEDS: CHOLECALCIFEROL 1,000 UNITS 25 MCG TAB PO SCH (09:28)
[2021-07-25] MEDS: FOLIC ACID 400 MCG TAB PO SCH (09:28)
[2021-07-25] MEDS: PYRIDOXINE HCL 50 MG TAB PO SCH (09:29)
[2021-07-25] MEDS: MULTIVITAMIN TAB PO SCH (09:29)
[2021-07-25] MEDS: guaiFENesin 600 MG TABCR PO SCH (09:29)
--- NOTE | 2021-07-25 14:37 | Progress Notes ---
DATE OF SERVICE: 07/24/2021 SUBJECTIVE: An 86-year-old white female postoperative day 1 from right knee replacement. She is doi ng pretty well. Pain is controlled. Thigh discomfort more than anything. No chest pain or shortnes s of breath. Not feeling dizzy or lightheaded. OBJECTIVE: VITAL SIGNS: Temperature 37.3. Vital signs are stable. PHYSICAL EXAMINATION: GENERAL: Shows a pleasant, elderly female. Sitting up in bed, looks comfortable. She is awake, ni rt and oriented. EXTREMITIES: Examination of the right leg reveals the leg to be well aligned. Dressing is clean, dr y and intact. No drainage. She can dorsiflex and plantarflex her foot appropriately. Toes are pink with brisk refill. LABORATORY DATA: Hemoglobin 10.4. Hematocrit 32.1. Electrolytes are stable. ASSESSMENT: An 86-year-old white female postoperative day 1 from right knee replacement, doing prett y well. Pain is controlled. She is neurologically intact. PLAN: 1. DVT prophylaxis includes thigh-high TEDs, SCDs, and aspirin twice a day. 2. PT, OT, weightbear as tolerated. Right total knee protocol. 3. Pain control, doing well with current pain regimen. 4. Disposition: Plan to discharge to [facility] likely later today if accepted and approved. Job ID: [id number]
--- NOTE | 2021-07-27 13:57 | Discharge Summary ---
Date of Service July 27, 2021 Discharge Data Procedures Performed Operation Date: 07/24/21 07:00 Actual Procedures p Right Total Knee Arthroplasty(Right) - Brian Schilling MD Hospital Course (1) Status post total right knee replacement: Hiwot is a 86 year old patient admitted on 07/24/21 and underwent total knee arthroplasty. She tolerated the procedure well and there were no complications. Transferred to the PACU post op and later to the orthopedic floor for further care. She was given ancef for antibiotic prophylaxis. She was also given TRACY stockings, SCDs, and aspirin for DVT prophylaxis. Hemoglobin, hematocrit, and vital signs were monitored during her hospital stay and remained stable. Did not require any blood transfusions. There were no complications dur ing her hospital stay. By post op day #1 the patient was tolerating a regular diet, pain was reasonably controlled with oral pain medicine, and she was participating in physical therapy. On post op day #1 the patient was transferred to a rehab facility. She was given printed discharge instructions including prescriptions for extra strength tylenol, aspirin, and tramadol. Continue physical therapy, weight bearing as tolerated. Continue TRACY stockings. Follow up approximately 2 weeks post op or sooner if there are problems or concerns. Coding Level of Care Code None Diagnoses Status post total right knee replacement Z96.651
== END 2021-07-25 16:13 ==
LOC: 3E 05:12 → ASU 05:12 → UNDODISOB 07-25 15:02

== ENCOUNTER 2024-01-20 22:34 | Inpatient (IN) ==
--- NOTE | 2024-01-20 23:49 | Emergency Department Note ---
Impression & Plan Asymptomatic stenosis of anterior cerebral artery, Gait instability, Elevated troponin I level ED Provider Note NAME: DEVIN ENRIQUEZ AGE: 88 SEX: F : 1935 ARRIVES VIA: Ambulance INFORMANT: Patient, ED PROVIDER(S): Hi Nazario MD CHIEF COMPLAINT: Gait unsteady MEDICAL DECISION MAKING: Patient presents due to concern for unsteady gait and dizziness. IV was established and blood work was obtained along with CT head and CT angiography of the head and neck. Patient's blood work shows a white count of 12 with a normal H&H and platelet count. The patient's kidney function shows a normal creatinine. Troponin is slightly elevated at 24.9. Patient CT head negative. CT angiography of the neck negative. CT angiography of the head does show concern for focal area of stenosis concern for thromboembolic disease at the left A2 segment. Patient has not a TNK candidate given the patient's last known well/duration of symptoms as well as the patient being on Eliquis. I did speak with telestroke Dr. Reynolds and after discussion he states that this is the distal area given that the patient currently has an NIH of 0 does not think that the patient warrants transfer or eval for neurovascular/endovascular intervention. He did state that he would look for the imaging and if there was something of concern he would call back. The patient was recommended for MRI and permissive hypertension to systolics of 180s. He also did recommend starting atorvastatin. I did speak the on-call hospitalist Dr. Schilling and the patient was admitted to the medicine service. Discussion w/ other healthcare providers: Dr. Schilling inpatient medicine service Prior /Outside records reviewed: I reviewed a cardiology visit from January 05, [address] Suárez. Unknown as to duration of the patient's A-fib. Patient was to be anticoagulated obtain a formal echo restart metoprolol and then consider cardioversion. Patient reportedly is on aspirin. I did review the patient's echocardiogram that was completed January 18. Patient was noted to have normal LV systolic function moderate concentric LVH left atrium mildly dilated and mild mitral regurgitation. Differential diagnosis: Infection, dehydration, metabolic abnormality, hypo/hyperglycemia, electrolyte imbalance, anemia, UTI, pneumonia, thyroid dysfunction among others were considered. Diagnostics, as interpreted by me: ECG: Is A-fib, rate of 71, wide QRS no ST elevations, possible depressions in V3. Cardiac monitoring: An order was placed for continuous cardiac monitoring. The monitor shows a rate of 72 with sinus rhythm. Patient was placed on pulse oximetry Medical decision rules: None Imaging studies: I informally interpreted the patient's CT head which does not show obvious ICH with formal report to follow. HPI: Patient presents due to concern for gait unsteadiness. The patient does complain of some associated dizziness and has felt this way since about 2 PM. The patient states that if she put her head along wall she seemed to be able to guide herself and would be able to maintain balance but still felt unsteady. Patient states that she does walk with a cane. No falls or trauma. Patient was recently diagnosed with A-fib and is scheduled for cardioversion at 630 this morning. The patient denies any chest pains but has had some shortness of breath which has been intermittent primarily only with exertion ever since she had COVID in 2021. The patient been diagnosed with asthma it was thought that maybe this might be related but was also told that she could have been in A-fib and this could also be contributory. Patient denies any vomiting or diarrhea. No fevers or chills. The patient states that she did have a prior stroke in 2018 but did not suffer any deficits. The patient states at that time she did have some associated inability to walk and developed difficulty with speech. The patient states that this feels different. No head or neck pain. PAST MEDICAL HISTORY: See Below PAST SURGICAL HISTORY: See Below SOCIAL HISTORY: See Below HOME MEDICATIONS: See Below ALLERGIES: See Below VITALS: See Below PHYSICAL EXAMINATION: GENERAL: NAD, non-toxic. Wearing glasses. Hard of hearing. EYE EXAM: Normal conjunctiva. PERRL, no anisocoria and EOM's grossly intact w/o pain. OROPHARYNX: Moist mucus membranes, grossly normal dentition. NECK: Trachea midline, no stridor. Supple, no nuchal rigidity, no adenopathy, non-tender. No signs of meningismus. FROM of the neck with good chin to chest and neck extension. LUNGS: Clear to auscultation. Normal chest wall mechanics. HEART: NSR, no MRG. ABDOMEN: Abdomen soft, non-tender, no masses, no rebound or guarding. BACK: No CVA TTP. SKIN: No rashes and no bruising. UPPER EXTREMITIES: Upper extremities are grossly normal. LOWER EXTREMITIES: Grossly normal, no edema. NEURO EXAM: A&O x3, cranial nerves II-XII grossly intact, normal speech, moves all 4 extremities. Good [id number] good [id number], no sensory deficits. Past Med/Surg History Medical History Obesity (BMI 30.0-34.9) per pt, reason for metformin Atrial fibrillation dx'd 12/2023. SVT (supraventricular tachycardia) Episode SVT during 04/2020 stress test (lasting approximately 50 seconds) converting to SR with carotid massage Stroke 07/2018 > no residual effects, plavix discontinued (hx GIB) Glaucoma History of GI bleed r/t plavix (since discontinued) History of anemia Uterine fibroid Osteoarthritis Hearing deficit Hypertension "borderline" Hyperlipidemia "borderline" Asthma uses PRN 3xwk on avg IBS (irritable bowel syndrome) resolved Surgical History History of arthroscopy of right knee History of nasal polypectomy History of adenoidectomy History of right knee joint replacement History of eye surgery History of total knee replacement Left TKA (04/03/21): SAB at L3 (x1 attempt) + PNB at [facility] History of gynecologic surgery Anterior cystocele repair History of surgical procedure on eye proper using laser R/L (for glaucoma) History of cataract surgery R/L History of colonoscopy Sigmoidoscopy exam History of herniorrhaphy History of tooth extraction History of tonsillectomy Family History Family/Other Family history of diabetes mellitus Father Prostate cancer Brother Prostate cancer Other No family history of adverse response to anesthesia Denies family history of Ovarian cancer Myocardial infarction Breast cancer Colorectal cancer Social History Smoking Status: Never smoker Second Hand Exposure: Yes ( SMOKED); Do You Dip or Chew Tobacco: No; Hx Alcohol Use: Yes Alcohol type: wine Hx Substance Use: No Preferred Language: Venezuelan Communication Ability: Effective Marketing Communications Associate Required: No Beliefs That Will Affect Care: None marital status: / Current Living Situation: Alone Feels Safe at Home: Yes Assistive Devices: Cane, Glasses and Hearing Aid - Bilateral Allergies Allergies Allergy/AdvReac Type Severity Reaction Status Date / Time nickel Allergy Rash Verified 01/13/24 11:12 No Known Drug Allergies Allergy Unknown Verified 01/13/24 10:09 Home Meds Home Medications Medication Instructions Recorded Confirmed guaifenesin 1,200 mg tablet, 1,200 mg PO QAM 08/20/18 01/21/24 extended release 12 hr (Mucinex) psyllium husk 3.4 gram/5.4 gram 1 tbsp PO QPM 08/20/18 01/21/24 oral powder (Metamucil) ascorbate calcium-bioflavonoid 500 1 tab PO QAM 08/21/18 01/21/24 mg-200 mg tablet (Isabel-C with Bioflavonoids) beta carotene 10,000 unit capsule 15,000 unit PO QAM 08/21/18 01/21/24 calcium carbonate 500 mg-vitamin 1 tab PO QAM 08/21/18 01/21/24 D3 5 mcg (200 unit) tablet (Calcium 500 + D) coQ10 (ubiquinol) 100 mg capsule 100 mg PO QPM 08/21/18 01/21/24 folic acid 400 mcg tablet 0.4 mg PO QAM 08/21/18 01/21/24 inositol 500 mg tablet 500 mg PO QPM 08/21/18 01/21/24 lutein 20 mg capsule 20 mg PO QAM 08/21/18 01/21/24 magnesium 250 mg tablet 250 mg PO BID 08/21/18 01/21/24 methylsulfonylmethane 1,000 mg 1,000 mg PO BID 08/21/18 01/21/24 capsule (MSM) pantothenic acid (vit B5) 500 mg 500 mg PO QPM 08/21/18 01/21/24 tablet vitamin B12 500 mcg-folic acid 400 1 tab PO QAM 08/21/18 01/21/24 mcg tablet cholecalciferol (vitamin D3) 125 125 mcg PO QPM 03/17/23 01/21/24 mcg (5,000 unit) capsule fexofenadine 180 mg tablet 180 mg PO QPM 04/08/23 01/21/24 (Chrissy Allergy) multivitamin 1 tab PO QPM 04/08/23 01/21/24 vitamin B complex 1 tab PO QPM 04/08/23 01/21/24 ASHWAGANDA 1 dose PO QAM 05/20/23 01/21/24 milk thistle 500 mg capsule 500 mg PO QAM 05/20/23 01/21/24 acetylcysteine 600 mg capsule (NAC) 600 mg PO QAM 05/26/23 01/21/24 alendronate 70 mg tablet (Fosamax) 70 mg PO WK 01/13/24 01/21/24 azelastine 137 mcg (0.1 %) nasal 1 spray intranasal BID 01/13/24 01/21/24 spray aerosol metformin 500 mg tablet,extended 500 mg PO QPM 01/13/24 01/21/24 release 24 hr metoprolol succinate 25 mg 12.5 mg PO QPM 01/13/24 01/21/24 tablet,extended release 24 hr olmesartan 40 1 tab PO QPM 01/13/24 01/21/24 mg-hydrochlorothiazide 25 mg tablet umeclidinium 62.5 mcg/actuation 1 inh inhalation QAM 01/13/24 01/21/24 blister powder for inhalation (Incruse Ellipta) Previous Rx's Medication Instructions Recorded amoxicillin 500 mg tablet 2,000 mg (4 x 500 mg) PO ONCE #4 05/06/23 tabs montelukast 10 mg tablet 10 mg PO QAM #90 tabs 08/06/23 (Singulair) apixaban 5 mg tablet (Eliquis) 5 mg PO BID #180 tabs 12/17/23 budesonide-formoterol HFA 80 2 puff inhalation BID #10.2 grams 12/18/23 mcg-4.5 mcg/actuation aerosol inhaler (Symbicort) albuterol sulfate 90 mcg/actuation 2 puff inhalation QID PRN 12/25/23 aerosol inhaler (Ventolin HFA) Shortness Of Breath #8.5 grams alprazolam 0.25 mg tablet 0.25 mg PO HS PRN insomnia #45 tabs 01/01/24 Results & Data (ED) Vital Signs Vital Signs - 24 hr 01/20/24 22:25 01/20/24 22:36 01/20/24 23:44 Temperature 36.9 C Temperature Source Oral Pulse Rate 87 78 Pulse Rate from SpO2 Sensor Respiratory Rate 24 Respiratory Effort / Characteristics Non-Labored Spontaneous Respiratory Depth Normal Respiratory Pattern Regular Blood Pressure 136/87 Blood Pressure Mean 103 Blood Pressure Position Semi-fowlers Pulse Oximetry 96 Oxygen Delivery Method Room Air Room Air Sepsis Recent Fever Within 48 Hours No Sepsis New/Unexplained Change in Mental Status No Sepsis Action Taken by Nursing No Action Required 01/20/24 23:44 01/20/24 23:50 01/21/24 00:00 Temperature Temperature Source Pulse Rate 80 77 79 Pulse Rate from SpO2 Sensor 77 79 79 Respiratory Rate 19 18 20 Respiratory Effort / Characteristics Respiratory Depth Respiratory Pattern Blood Pressure Blood Pressure Mean Blood Pressure Position Pulse Oximetry 94 95 95 Oxygen Delivery Method Sepsis Recent Fever Within 48 Hours Sepsis New/Unexplained Change in Mental Status Sepsis Action Taken by Nursing 01/21/24 00:10 01/21/24 00:20 01/21/24 00:25 Temperature Temperature Source Pulse Rate 78 80 Pulse Rate from SpO2 Sensor 76 76 Respiratory Rate 22 20 Respiratory Effort / Characteristics Respiratory Depth Respiratory Pattern Blood Pressure Blood Pressure Mean Blood Pressure Position Pulse Oximetry 95 93 98 Oxygen Delivery Method Room Air Sepsis Recent Fever Within 48 Hours Sepsis New/Unexplained Change in Mental Status Sepsis Action Taken by Nursing 01/21/24 00:25 01/21/24 00:30 01/21/24 00:40 Temperature Temperature Source Pulse Rate 67 80 Pulse Rate from SpO2 Sensor 76 82 Respiratory Rate 18 16 Respiratory Effort / Characteristics Non-Labored Respiratory Depth Normal Respiratory Pattern Blood Pressure Blood Pressure Mean Blood Pressure Position Pulse Oximetry 98 96 Oxygen Delivery Method Sepsis Recent Fever Within 48 Hours Sepsis New/Unexplained Change in Mental Status Sepsis Action Taken by Nursing 01/21/24 00:50 01/21/24 01:00 01/21/24 01:44 Temperature Temperature Source Pulse Rate 79 81 90 Pulse Rate from SpO2 Sensor 85 83 Respiratory Rate 17 19 Respiratory Effort / Characteristics Respiratory Depth Respiratory Pattern Blood Pressure Blood Pressure Mean Blood Pressure Position Pulse Oximetry 97 96 Oxygen Delivery Method Sepsis Recent Fever Within 48 Hours Sepsis New/Unexplained Change in Mental Status Sepsis Action Taken by Nursing 01/21/24 01:46 01/21/24 01:46 01/21/24 01:50 Temperature Temperature Source Pulse Rate 76 74 Pulse Rate from SpO2 Sensor 71 74 Respiratory Rate 18 20 Respiratory Effort / Characteristics Respiratory Depth Respiratory Pattern Blood Pressure 136/94 Blood Pressure Mean 106 Blood Pressure Position Pulse Oximetry 96 98 Oxygen Delivery Method Sepsis Recent Fever Within 48 Hours Sepsis New/Unexplained Change in Mental Status Sepsis Action Taken by Nursing 01/21/24 01:55 01/21/24 01:55 01/21/24 02:00 Temperature Temperature Source Pulse Rate 75 Pulse Rate from SpO2 Sensor 79 Respiratory Rate 19 Respiratory Effort / Characteristics Non-Labored Respiratory Depth Normal Respiratory Pattern Blood Pressure 107/71 Blood Pressure Mean 78 Blood Pressure Position Pulse Oximetry 94 Oxygen Delivery Method Sepsis Recent Fever Within 48 Hours Sepsis New/Unexplained Change in Mental Status Sepsis Action Taken by Nursing 01/21/24 02:00 01/21/24 02:00 01/21/24 02:10 Temperature Temperature Source Pulse Rate 77 81 Pulse Rate from SpO2 Sensor 78 78 Respiratory Rate 19 18 Respiratory Effort / Characteristics Respiratory Depth Respiratory Pattern Blood Pressure 134/76 Blood Pressure Mean 95 Blood Pressure Position Pulse Oximetry 96 93 Oxygen Delivery Method Sepsis Recent Fever Within 48 Hours Sepsis New/Unexplained Change in Mental Status Sepsis Action Taken by Nursing 01/21/24 02:20 01/21/24 02:30 01/21/24 02:40 Temperature Temperature Source Pulse Rate 75 74 76 Pulse Rate from SpO2 Sensor 74 78 71 Respiratory Rate 21 19 23 Respiratory Effort / Characteristics Respiratory Depth Respiratory Pattern Blood Pressure Blood Pressure Mean Blood Pressure Position Pulse Oximetry 97 96 96 Oxygen Delivery Method Sepsis Recent Fever Within 48 Hours Sepsis New/Unexplained Change in Mental Status Sepsis Action Taken by Nursing 01/21/24 02:50 01/21/24 03:00 01/21/24 03:01 Temperature Temperature Source Pulse Rate 71 87 Pulse Rate from SpO2 Sensor 76 86 Respiratory Rate 18 18 Respiratory Effort / Characteristics Respiratory Depth Respiratory Pattern Blood Pressure 147/95 H Blood Pressure Mean 115 Blood Pressure Position Pulse Oximetry 96 98 Oxygen Delivery Method Sepsis Recent Fever Within 48 Hours Sepsis New/Unexplained Change in Mental Status Sepsis Action Taken by Nursing 01/21/24 03:01 01/21/24 03:10 01/21/24 03:20 Temperature Temperature Source Pulse Rate 82 88 79 Pulse Rate from SpO2 Sensor 79 81 82 Respiratory Rate 21 22 20 Respiratory Effort / Characteristics Respiratory Depth Respiratory Pattern Blood Pressure Blood Pressure Mean Blood Pressure Position Pulse Oximetry 99 94 91 Oxygen Delivery Method Sepsis Recent Fever Within 48 Hours Sepsis New/Unexplained Change in Mental Status Sepsis Action Taken by Nursing 01/21/24 03:30 01/21/24 03:40 Temperature Temperature Source Pulse Rate 81 79 Pulse Rate from SpO2 Sensor 69 75 Respiratory Rate 21 19 Respiratory Effort / Characteristics Respiratory Depth Respiratory Pattern Blood Pressure Blood Pressure Mean Blood Pressure Position Pulse Oximetry 92 95 Oxygen Delivery Method Sepsis Recent Fever Within 48 Hours Sepsis New/Unexplained Change in Mental Status Sepsis Action Taken by [facility] Medications Current Medication List: was personally reviewed by me Laboratory Data Attestation: I reviewed the patient's lab results. 01/20/24 23:42 01/20/24 23:42 Lab Results 01/20/24 01/21/24 01/21/24 Range/Units 23:42 00:39 01:49 WBC 12.64 H (4.8-10.8) K/ul RBC 4.19 L (4.20-5.40) M/uL Hgb 12.9 (12.0-16.0) g/dl POC Hgb 12.9 (12.0-16.0) g/dl Hct 39.9 (37.0-47.0) % POC Hct 38 (37-47) % MCV 95.2 (80.0-100.0) fL MCH 30.8 (25.0-34.0) pg MCHC 32.3 (32.0-36.0) g/dL RDW Std Deviation 45.3 (36.4-46.3) fL RDW Coeff of Carrol 12.8 (11.5-14.5) % Plt Count 228 (130-400) K/uL MPV 11.2 (9.4-12.4) fL Immature Gran % (Auto) 0.4 % Neut % (Auto) 68.4 % Lymph % (Auto) 18.1 % [place] % (Auto) 8.1 % Eos % (Auto) 4.7 % Baso % (Auto) 0.3 % Neut # (Auto) 8.64 H (1.40-6.50) K/uL Lymph # (Auto) 2.29 (1.20-3.40) K/uL [place] # (Auto) 1.03 H (0.11-0.59) K/uL Eos # (Auto) 0.59 H (0.00-0.50) K/uL Baso # (Auto) 0.04 (0.00-0.20) K/uL Immature Gran # (Auto) 0.05 (0.01-0.20) K/uL PT 11.4 (9.0-12.0) Seconds INR 1.0 (0.9-1.1) APTT 25 (21-31) Seconds PTT Ratio 0.9 POC Sodium 138 (135-144) mmol/L Sodium 138 (136-145) mmol/L POC Potassium 4.1 (3.3-5.0) mmol/L Potassium 4.5 (3.5-5.1) mmol/L POC Chloride 104 (101-112) mmol/L Chloride 104 (98-107) mmol/L Carbon Dioxide 27 (21-32) mmol/L POC Total CO2 25 (24-31) mmol/L Anion Gap 7 (3-11) POC Anion Gap 14.0 L (16-25) mmol/L POC BUN 35 H (7-18) mg/dl BUN 38 H (6-23) mg/dl Creatinine 0.87 (0.6-1.2) mg/dl POC Creatinine 0.9 (0.6-1.3) mg/dl Est Cr Clr Drug Dosing 45.7 ml/min Est GFR ( Amer) 69.4 ml/min Est GFR (Non-Af Amer) 59.9 ml/min BUN/Creatinine Ratio 43.7 H (10-20) Glucose 104 H (70-99(Fasting)) mg/dl POC Glucose (other) 105 H (70-99) mg/dl Calcium 9.6 (8.6-10.3) mg/dl POC Ioniz Calcium Archana 1.31 (1.12-1.32) mmol/l Magnesium 2.0 (1.7-2.4) mg/dl Total Bilirubin 0.4 (0.2-1.0) mg/dl AST 40 H (13-39) U/L ALT 32 (7-52) U/L Alkaline Phosphatase 109 H (34-104) U/L Troponin I High Sens 24.9 H (0-14) pg/ml Total Protein 6.5 (6.0-8.3) gm/dl Albumin 3.6 (3.4-5.0) gm/dl Globulin 2.9 (2.5-4.0) gm/dl Albumin/Globulin Ratio 1.2 (0.9-2) Urine Color Yellow Urine Appearance Clear (Clear) Urine pH 5.0 (4.5-7.5) Ur Specific [place] 1.016 (1.000-1.030) Urine Protein Negative (Negative) Urine Glucose (UA) Negative (Negative) Urine Ketones Negative (Negative) Urine Blood Trace H (Negative) Urine Nitrite Negative (Negative) Urine Bilirubin Negative (Negative) Urine Urobilinogen Negative (Negative) Ur Leukocyte Esterase 1+ H (Negative) Urine WBC (Auto) 1-5 (0-5) /hpf Urine RBC (Auto) 0-4 (0-4) /hpf U Hyaline Cast (Auto) 1-5 (0-5) /lpf U Epithel Cells (Auto) 5-10 H (0-5) /lpf Urine Bacteria (Auto) Negative (Negative) 01/21/24 Range/Units 02:17 WBC (4.8-10.8) K/ul RBC (4.20-5.40) M/uL Hgb (12.0-16.0) g/dl POC Hgb (12.0-16.0) g/dl Hct (37.0-47.0) % POC Hct (37-47) % MCV (80.0-100.0) fL MCH (25.0-34.0) pg MCHC (32.0-36.0) g/dL RDW Std Deviation (36.4-46.3) fL RDW Coeff of Carrol (11.5-14.5) % Plt Count (130-400) K/uL MPV (9.4-12.4) fL Immature Gran % (Auto) % Neut % (Auto) % Lymph % (Auto) % [place] % (Auto) % Eos % (Auto) % Baso % (Auto) % Neut # (Auto) (1.40-6.50) K/uL Lymph # (Auto) (1.20-3.40) K/uL [place] # (Auto) (0.11-0.59) K/uL Eos # (Auto) (0.00-0.50) K/uL Baso # (Auto) (0.00-0.20) K/uL Immature Gran # (Auto) (0.01-0.20) K/uL PT (9.0-12.0) Seconds INR (0.9-1.1) APTT (21-31) Seconds PTT Ratio POC Sodium (135-144) mmol/L Sodium (136-145) mmol/L POC Potassium (3.3-5.0) mmol/L Potassium (3.5-5.1) mmol/L POC Chloride (101-112) mmol/L Chloride (98-107) mmol/L Carbon Dioxide (21-32) mmol/L POC Total CO2 (24-31) mmol/L Anion Gap (3-11) POC Anion Gap (16-25) mmol/L POC BUN (7-18) mg/dl BUN (6-23) mg/dl Creatinine (0.6-1.2) mg/dl POC Creatinine (0.6-1.3) mg/dl Est Cr Clr Drug Dosing ml/min Est GFR ( Amer) ml/min Est GFR (Non-Af Amer) ml/min BUN/Creatinine Ratio (10-20) Glucose (70-99(Fasting)) mg/dl POC Glucose (other) (70-99) mg/dl Calcium (8.6-10.3) mg/dl POC Ioniz Calcium Archan[place] (1.12-1.32) mmol/l Magnesium (1.7-2.4) mg/dl Total Bilirubin (0.2-1.0) mg/dl AST (13-39) U/L ALT (7-52) U/L Alkaline Phosphatase (34-104) U/L Troponin I High Sens 25.0 H (0-14) pg/ml Total Protein (6.0-8.3) gm/dl Albumin (3.4-5.0) gm/dl Globulin (2.5-4.0) gm/dl Albumin/Globulin Ratio (0.9-2) Urine Color Urine Appearance (Clear) Urine pH (4.5-7.5) Ur Specific [place] (1.000-1.030) Urine Protein (Negative) Urine Glucose (UA) (Negative) Urine Ketones (Negative) Urine Blood (Negative) Urine Nitrite (Negative) Urine Bilirubin (Negative) Urine Urobilinogen (Negative) Ur Leukocyte Esterase (Negative) Urine WBC (Auto) (0-5) /hpf Urine RBC (Auto) (0-4) /hpf U Hyaline Cast (Auto) (0-5) /lpf U Epithel Cells (Auto) (0-5) /lpf Urine Bacteria (Auto) (Negative) Administered Medications Discontinued Medications Sodium Chloride (Nss) 250 mls @ 999 mls/hr IV .Q16M ONE Stop: 01/21/24 00:17 Last Admin: 01/21/24 02:08 Dose: 999 mls/hr Documented By: JESSE Ioversol (Optiray 320 125ml) 125 ml IV ONCE ONE Stop: 01/21/24 01:31 Last Admin: 01/21/24 01:30 Dose: 115 ml Documented By: ALAN Imaging Data Radiologist's Impression: Head CT 01/21/24 00:02 Exam(s): CT HEAD Without Contrast EXAM: CT Head Without Intravenous Contrast CLINICAL HISTORY: Reason for exam: gait imbalance, on thinners. TECHNIQUE: Axial computed tomography images of the head/brain without intravenous contrast. CTDI is 36.05 mGy and DLP is 624.41 mGy-cm. Automated exposure control was utilized for the study. A dose lowering technique was utilized adhering to the principles of ALARA. COMPARISON: Comparison made to prior head CT from July 29, 2018. FINDINGS: Brain: Remote ischemic injury of the left capsule. No hemorrhage. Moderate nonspecific white matter changes. No edema. Ventricles: Mild ventriculomegaly. Bones/joints: Unremarkable. No acute fracture. Soft tissues: Bilateral lens replacements. Sinuses: Status post endoscopic sinus surgery. No acute sinusitis. Mastoid air cells: Unremarkable as visualized. No mastoid effusion. IMPRESSION: No evidence of acute intracranial pathology. Electronically signed by: Yanira Kumar MD 01/21/24 02:18 AM Head CTA 01/21/24 00:04 CR Exam(s): CTA HEAD With Contrast IV Amt: 115 ml optiray 320 EXAM: CT Angiography Head With Intravenous Contrast CLINICAL HISTORY: Reason for exam: gait imbalance, h/o CVA, on thinners. TECHNIQUE: Axial computed tomographic angiography images of the head with intravenous contrast. CTDI is 14.68 mGy and DLP is 543.95 mGy-cm. Automated exposure control was utilized for the study. A dose lowering technique was utilized adhering to the principles of ALARA. MIP reconstructed images were created and reviewed. CONTRAST: Patient received 115 ml optiray 320 of IV contrast COMPARISON: Comparison made to prior CT angiogram of the head from July 29, 2018. FINDINGS: The dural venous sinuses are draining. Right internal carotid artery: No acute findings. Intracranial segment is patent with no significant stenosis. No aneurysm. Right anterior cerebral artery: Unremarkable. No occlusion or significant stenosis. No aneurysm. Right middle cerebral artery: Unremarkable. No occlusion or significant stenosis. No aneurysm. Right posterior cerebral artery: Unremarkable. No occlusion or significant stenosis. No aneurysm. Right vertebral artery: Unremarkable as visualized. Left internal carotid artery: No acute findings. Intracranial segment is patent with no significant stenosis. No aneurysm. Left anterior cerebral artery: There is a focal high-grade stenosis of the left A2 segment. No aneurysm. Left middle cerebral artery: Unremarkable. No occlusion or significant stenosis. No aneurysm. Left posterior cerebral artery: Unremarkable. No occlusion or significant stenosis. No aneurysm. Left vertebral artery: Unremarkable as visualized. Basilar artery: Unremarkable. No occlusion or significant stenosis. No aneurysm. IMPRESSION: There is a focal high-grade stenosis of the left A2 segment concerning for acute thromboembolic disease. Communications: Verify Receipt Electronically signed by: Yanira Kumar MD 01/21/24 02:14 AM Neck CTA 01/21/24 00:04 Exam(s): CTA NECK With Contrast IV Amt: 115 ml optiray 320 EXAM: CT Angiography Neck With Intravenous Contrast CLINICAL HISTORY: Reason for exam: gait imbalance, h/o CVA, on thinners. TECHNIQUE: Routine carotid CT angiography protocol was performed with intravenous contrast. NASCET criteria using the distal ICAs for comparison were used for evaluation of stenoses. CTDI is 14.68 mGy and DLP is 543.95 mGy-cm. Automated exposure control was utilized for the study. A dose lowering technique was utilized adhering to the principles of ALARA. MIP reconstructed images were created and reviewed. CONTRAST: Patient received 115 ml optiray 320 of IV contrast COMPARISON: Comparison made to prior CT angiogram of the neck from July 29, 2018. FINDINGS: VASCULATURE: Right common carotid artery: Unremarkable. No occlusion or significant stenosis. No dissection. Right internal carotid artery: Unremarkable. Extracranial segment is patent with no occlusion or significant stenosis. No dissection. Right external carotid artery: Unremarkable. No occlusion. Right vertebral artery: Unremarkable. No occlusion or significant stenosis. No dissection. Left common carotid artery: Unremarkable. No occlusion or significant stenosis. No dissection. Left internal carotid artery: Unremarkable. Extracranial segment is patent with no occlusion or significant stenosis. No dissection. Left external carotid artery: Unremarkable. No occlusion. Left vertebral artery: Unremarkable. No occlusion or significant stenosis. No dissection. 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 No acute fracture. Soft tissues: A tiny right thyroid nodule. Lung apices: Clear. CAROTID STENOSIS REFERENCE USING NASCET CRITERIA: % ICA stenosis = (1 - narrowest ICA diameter/diameter of distal cervical ICA) x 100. Mild - <50% stenosis. Moderate - 50-69% stenosis. Severe - 70-94% stenosis. Near occlusion - 95-99% stenosis. Occluded - 100% stenosis. IMPRESSION: Negative CTA neck. Electronically signed by: Yanira Kumar MD 01/21/24 02:10 AM Discharge Plan Visit Data Chief Complaint: Dizziness Stated Complaint: DIZZINESS, UNSTEADY STARTING AT 1400 HX STROKE ED Provider: Hi Nazario Discharge Problem: Asymptomatic stenosis of anterior cerebral artery, Gait instability, Elevated troponin I level Patient Disposition: Admitted As Inpatient Discharge Instructions Interventions: ED Discharge Assessment Last Done: 01/21/24 05:28
[2024-01-21 00:22] LABS: Basophils # (auto) 0.04 K/uL (0.00-0.20); Basophils % (auto) 0.3 %; Eosinophils # (auto) 0.59 K/uL (0.00-0.50); Eosinophils % (auto) 4.7 %; Hematocrit (blood only) 39.9 % (37.0-47.0); Hemoglobin 12.9 g/dl (12.0-16.0); Immature Granulocytes # (auto) 0.05 K/uL (0.01-0.20); Immature Granulocytes % (auto) 0.4 %; Lymphocytes # (auto) 2.29 K/uL (1.20-3.40); Lymphocytes % (auto) 18.1 %; Mean Corpuscular Hemoglobin 30.8 pg (25.0-34.0); Mean Corpuscular Hgb Conc 32.3 g/dL (32.0-36.0); Mean Corpuscular Volume 95.2 fL (80.0-100.0); Mean Platelet Volume 11.2 fL (9.4-12.4); Monocytes # (auto) 1.03 K/uL (0.11-0.59); Monocytes % (auto) 8.1 %; Neutrophils # (auto) 8.64 K/uL (1.40-6.50); Neutrophils % (auto) 68.4 %; Platelet Count 228 K/uL (130-400); RDW Coefficient of Variation 12.8 % (11.5-14.5); RDW Standard Deviation 45.3 fL (36.4-46.3); Red Blood Count 4.19 M/uL (4.20-5.40); White Blood Count 12.64 K/ul (4.8-10.8)
[2024-01-21 00:29] LABS: Albumin Globulin Ratio 1.2 (0.9-2); Albumin Level 3.6 gm/dl (3.4-5.0); BUN Creatinine Ratio 43.7 (10-20); Bilirubin,Total 0.4 mg/dl (0.2-1.0); Calcium 9.6 mg/dl (8.6-10.3); Creatinine Clr Calc Pharmacy 45.7 ml/min; Est GFR (African American) 69.4 ml/min; Est GFR (Non-African American) 59.9 ml/min; Globulin 2.9 gm/dl (2.5-4.0); Potassium 4.5 mmol/L (3.5-5.1); Total Protein 6.5 gm/dl (6.0-8.3)
[2024-01-21 00:35] LABS: Troponin I High Sensitivity 24.9 pg/ml (0-14)
[2024-01-21 00:50] LABS: iSTAT Creatinine 0.9 mg/dl (0.6-1.3); iSTAT Hemoglobin 12.9 g/dl (12.0-16.0); iSTAT Ionized Calcium 1.31 mmol/l (1.12-1.32); iSTAT Potassium 4.1 mmol/L (3.3-5.0)
[2024-01-21 00:58] LABS: Partial Thromboplastin Ratio 0.9; Partial Thromboplastin Time 25 Seconds (21-31); Prothrombin Time 11.4 Seconds (9.0-12.0)
[2024-01-21] MEDS: OPTIRAY 320 125ml IV ONE (01:30)
[2024-01-21] MEDS: SODIUM CHLORIDE 0.9% 250 ML IV ONE (02:08)
--- NOTE | 2024-01-21 02:11 | CT Scan Report ---
Exam(s): CTA NECK With Contrast IV Amt: 115 ml optiray 320 EXAM: CT Angiography Neck With Intravenous Contrast CLINICAL HISTORY: Reason for exam: gait imbalance, h/o CVA, on thinners. TECHNIQUE: Routine carotid CT angiography protocol was performed with intravenous contrast. NASCET criteria using the distal ICAs for comparison were used for evaluation of stenoses. CTDI is 14.68 mGy and DLP is 543.95 mGy-cm. Automated exposure control was utilized for the study. A dose lowering technique was utilized adhering to the principles of ALARA. MIP reconstructed images were created and reviewed. CONTRAST: Patient received 115 ml optiray 320 of IV contrast COMPARISON: Comparison made to prior CT angiogram of the neck from July 29, 2018. FINDINGS: VASCULATURE: Right common carotid artery: Unremarkable. No occlusion or significant stenosis. No dissection. Right internal carotid artery: Unremarkable. Extracranial segment is patent with no occlusion or significant stenosis. No dissection. Right external carotid artery: Unremarkable. No occlusion. Right vertebral artery: Unremarkable. No occlusion or significant stenosis. No dissection. Left common carotid artery: Unremarkable. No occlusion or significant stenosis. No dissection. Left internal carotid artery: Unremarkable. Extracranial segment is patent with no occlusion or significant stenosis. No dissection. Left external carotid artery: Unremarkable. No occlusion. Left vertebral artery: Unremarkable. No occlusion or significant stenosis. No dissection. 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 No acute fracture. Soft tissues: A tiny right thyroid nodule. Lung apices: Clear. CAROTID STENOSIS REFERENCE USING NASCET CRITERIA: % ICA stenosis = (1 - narrowest ICA diameter/diameter of distal cervical ICA) x 100. Mild - <50% stenosis. Moderate - 50-69% stenosis. Severe - 70-94% stenosis. Near occlusion - 95-99% stenosis. Occluded - 100% stenosis. IMPRESSION: Negative CTA neck. Electronically signed by: Yanira Kumar MD 01/21/24 02:10 AM
--- NOTE | 2024-01-21 02:15 | CT Scan Report ---
Exam(s): CTA HEAD With Contrast IV Amt: 115 ml optiray 320 EXAM: CT Angiography Head With Intravenous Contrast CLINICAL HISTORY: Reason for exam: gait imbalance, h/o CVA, on thinners. TECHNIQUE: Axial computed tomographic angiography images of the head with intravenous contrast. CTDI is 14.68 mGy and DLP is 543.95 mGy-cm. Automated exposure control was utilized for the study. A dose lowering technique was utilized adhering to the principles of ALARA. MIP reconstructed images were created and reviewed. CONTRAST: Patient received 115 ml optiray 320 of IV contrast COMPARISON: Comparison made to prior CT angiogram of the head from July 29, 2018. FINDINGS: The dural venous sinuses are draining. Right internal carotid artery: No acute findings. Intracranial segment is patent with no significant stenosis. No aneurysm. Right anterior cerebral artery: Unremarkable. No occlusion or significant stenosis. No aneurysm. Right middle cerebral artery: Unremarkable. No occlusion or significant stenosis. No aneurysm. Right posterior cerebral artery: Unremarkable. No occlusion or significant stenosis. No aneurysm. Right vertebral artery: Unremarkable as visualized. Left internal carotid artery: No acute findings. Intracranial segment is patent with no significant stenosis. No aneurysm. Left anterior cerebral artery: There is a focal high-grade stenosis of the left A2 segment. No aneurysm. Left middle cerebral artery: Unremarkable. No occlusion or significant stenosis. No aneurysm. Left posterior cerebral artery: Unremarkable. No occlusion or significant stenosis. No aneurysm. Left vertebral artery: Unremarkable as visualized. Basilar artery: Unremarkable. No occlusion or significant stenosis. No aneurysm. IMPRESSION: There is a focal high-grade stenosis of the left A2 segment concerning for acute thromboembolic disease. Communications: Verify Receipt Electronically signed by: Yanira Kumar MD 01/21/24 02:14 AM
--- NOTE | 2024-01-21 02:18 | CT Scan Report ---
Exam(s): CT HEAD Without Contrast EXAM: CT Head Without Intravenous Contrast CLINICAL HISTORY: Reason for exam: gait imbalance, on thinners. TECHNIQUE: Axial computed tomography images of the head/brain without intravenous contrast. CTDI is 36.05 mGy and DLP is 624.41 mGy-cm. Automated exposure control was utilized for the study. A dose lowering technique was utilized adhering to the principles of ALARA. COMPARISON: Comparison made to prior head CT from July 29, 2018. FINDINGS: Brain: Remote ischemic injury of the left capsule. No hemorrhage. Moderate nonspecific white matter changes. No edema. Ventricles: Mild ventriculomegaly. Bones/joints: Unremarkable. No acute fracture. Soft tissues: Bilateral lens replacements. Sinuses: Status post endoscopic sinus surgery. No acute sinusitis. Mastoid air cells: Unremarkable as visualized. No mastoid effusion. IMPRESSION: No evidence of acute intracranial pathology. Electronically signed by: Yanira Kumar MD 01/21/24 02:18 AM
--- NOTE | 2024-01-21 03:43 | History & Physical Report ---
Date of Service January 21, 2024 Assessment & Plan (1) Gait instability: Plan: Patient reports acute decline in her gait this afternoon around 1400 superimposed on a progressive decline in balance and stability over the last several weeks. Concern for possible ischemic event contributing to patient's gait instability. CTA findings as above with high-grade stenosis of the A2 segment noted on the CTA of the neck. This was discussed with the stroke neurologist from [facility]. No acute intervention recommended. Will admit to medical with telemetry NIH stroke scale and neurochecks per protocol Hold antihypertensive agents to allow for permissive hypertension Check MRI brain Check urinalysis Check hemoglobin A1c and lipid panel Continue aspirin 81 mg p.o. daily Will initiate pravastatin 40 mg p.o. daily. Patient has tried red yeast rice as well as a statin in the past and developed muscle pain and joint pain after several months. She has never tried pravastatin. She is currently taking co- Q10 as well. If she has pain with pravastatin we will consider just treatment with [facility] PT/OT evaluations appreciated Neurology consultation appreciated (2) Atrial fibrillation: Plan: Patient with atrial fibrillation. She has been on Eliquis anticoagulation 5 mg p.o. twice daily. She was scheduled to have a cardioversion performed today 01/21/2024 Will postpone cardioversion until acute stroke workup is complete Continue apixaban 5 mg p.o. twice daily Holding metoprolol for now (3) Hypertension: Plan: Chronic. Patient on multiple antihypertensive agents Will hold for now to allow for permissive hypertension Continue to monitor blood pressure (4) Mild persistent asthma: Plan: chronic. Stable. No cough, shortness of breath or wheeze Continue guaifenesin 1200 mg p.o. every morning Continue albuterol as needed Continue Incruse Ellipta Continue Symbicort History of Present Illness Chief Complaint: Gait instability Primary Care Provider: Nae Borrego MD Hiwot Davis is a very pleasant 88-year-old female with history of atrial fibrillation on Eliquis anticoagulation, prior stroke with no residual deficit, hypertension and hyperlipidemia presenting from home with worsening gait imbalance. Patient reports that her gait has been progressively worsening over the last several weeks however, became acutely worse this afternoon around 14:00. Patient felt dizzy and needed to place her hand on the wall to balance. She has also had a dull headache but denies visual changes, focal numbness/tingling. No additional complaints of fever, chills, chest pain, cough, shortness of breath, nausea, vomiting, diarrhea Patient is scheduled for a cardioversion in the morning 01/21/2024 cardiology. She has been on anticoagulation. Allergies Allergy/AdvReac Type Severity Reaction Status Date / Time nickel Allergy Rash Verified 01/13/24 11:12 No Known Drug Allergies Allergy Unknown Verified 01/13/24 10:09 Home Medications Medication Instructions Recorded Confirmed Type guaifenesin 1,200 mg tablet, 1,200 mg PO QAM 08/20/18 01/21/24 History extended release 12 hr (Mucinex) psyllium husk 3.4 gram/5.4 gram 1 tbsp PO QPM 08/20/18 01/21/24 History oral powder (Metamucil) ascorbate calcium-bioflavonoid 500 1 tab PO QAM 08/21/18 01/21/24 History mg-200 mg tablet (Isabel-C with Bioflavonoids) beta carotene 10,000 unit capsule 15,000 unit PO QAM 08/21/18 01/21/24 History calcium carbonate 500 mg-vitamin 1 tab PO QAM 08/21/18 01/21/24 History D3 5 mcg (200 unit) tablet (Calcium 500 + D) coQ10 (ubiquinol) 100 mg capsule 100 mg PO QPM 08/21/18 01/21/24 History folic acid 400 mcg tablet 0.4 mg PO QAM 08/21/18 01/21/24 History inositol 500 mg tablet 500 mg PO QPM 08/21/18 01/21/24 History lutein 20 mg capsule 20 mg PO QAM 08/21/18 01/21/24 History magnesium 250 mg tablet 250 mg PO BID 08/21/18 01/21/24 History methylsulfonylmethane 1,000 mg 1,000 mg PO BID 08/21/18 01/21/24 History capsule (MSM) pantothenic acid (vit B5) 500 mg 500 mg PO QPM 08/21/18 01/21/24 History tablet vitamin B12 500 mcg-folic acid 400 1 tab PO QAM 08/21/18 01/21/24 History mcg tablet cholecalciferol (vitamin D3) 125 125 mcg PO QPM 03/17/23 01/21/24 History mcg (5,000 unit) capsule fexofenadine 180 mg tablet 180 mg PO QPM 04/08/23 01/21/24 History (Chrissy Allergy) multivitamin 1 tab PO QPM 04/08/23 01/21/24 History vitamin B complex 1 tab PO QPM 04/08/23 01/21/24 History amoxicillin 500 mg tablet 2,000 mg (4 x 500 mg) PO ONCE #4 05/06/23 01/21/24 Rx tabs ASHWAGANDA 1 dose PO QAM 05/20/23 01/21/24 History milk thistle 500 mg capsule 500 mg PO QAM 05/20/23 01/21/24 History acetylcysteine 600 mg capsule (NAC) 600 mg PO QAM 05/26/23 01/21/24 History montelukast 10 mg tablet 10 mg PO QAM #90 tabs 08/06/23 01/21/24 Rx (Singulair) apixaban 5 mg tablet (Eliquis) 5 mg PO BID #180 tabs 12/17/23 01/21/24 Rx budesonide-formoterol HFA 80 2 puff inhalation BID #10.2 grams 12/18/23 01/21/24 Rx mcg-4.5 mcg/actuation aerosol inhaler (Symbicort) albuterol sulfate 90 mcg/actuation 2 puff inhalation QID PRN 12/25/23 01/21/24 Rx aerosol inhaler (Ventolin HFA) Shortness Of Breath #8.5 grams alprazolam 0.25 mg tablet 0.25 mg PO HS PRN insomnia #45 tabs 01/01/24 01/21/24 Rx alendronate 70 mg tablet (Fosamax) 70 mg PO WK 01/13/24 01/21/24 History azelastine 137 mcg (0.1 %) nasal 1 spray intranasal BID 01/13/24 01/21/24 History spray aerosol metformin 500 mg tablet,extended 500 mg PO QPM 01/13/24 01/21/24 History release 24 hr metoprolol succinate 25 mg 12.5 mg PO QPM 01/13/24 01/21/24 History tablet,extended release 24 hr olmesartan 40 1 tab PO QPM 01/13/24 01/21/24 History mg-hydrochlorothiazide 25 mg tablet umeclidinium 62.5 mcg/actuation 1 inh inhalation QAM 01/13/24 01/21/24 History blister powder for inhalation (Incruse Ellipta) Past Med/Surg History Medical History Obesity (BMI 30.0-34.9) per pt, reason for metformin Atrial fibrillation dx'd 12/2023. SVT (supraventricular tachycardia) Episode SVT during 04/2020 stress test (lasting approximately 50 seconds) converting to SR with carotid massage Stroke 07/2018 > no residual effects, plavix discontinued (hx GIB) Glaucoma History of GI bleed r/t plavix (since discontinued) History of anemia Uterine fibroid Osteoarthritis Hearing deficit Hypertension "borderline" Hyperlipidemia "borderline" Asthma uses PRN 3xwk on avg IBS (irritable bowel syndrome) resolved Surgical History History of arthroscopy of right knee History of nasal polypectomy History of adenoidectomy History of right knee joint replacement History of eye surgery History of total knee replacement Left TKA (04/03/21): SAB at L3 (x1 attempt) + PNB at [facility] History of gynecologic surgery Anterior cystocele repair History of surgical procedure on eye proper using laser R/L (for glaucoma) History of cataract surgery R/L History of colonoscopy Sigmoidoscopy exam History of herniorrhaphy History of tooth extraction History of tonsillectomy Family History Family/Other Family history of diabetes mellitus Father Prostate cancer Brother Prostate cancer Other No family history of adverse response to anesthesia Denies family history of Ovarian cancer Myocardial infarction Breast cancer Colorectal cancer Social History Smoking Status: Never smoker Second Hand Exposure: Yes ( SMOKED); Do You Dip or Chew Tobacco: No; Hx Alcohol Use: Yes Alcohol type: wine Hx Substance Use: No Preferred Language: Khmer Communication Ability: Effective Rotary 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 Required: No Beliefs That Will Affect Care: None marital status: / Current Living Situation: Alone Feels Safe at Home: Yes Assistive Devices: Cane, Glasses and Hearing Aid - Bilateral Review of Systems Review of Systems: All systems reviewed & are unremarkable except as noted in HPI & below Physical Exam Physical Exam: General: patient resting comfortably, NAD, non-toxic in appearance, AA&O x 4 Skin: warm, dry, intact, no rashes or lesions HEENT: NC/AT, PERRL, EOMI, anicteric sclera, conjunctiva without injection, external ear normal to inspection and nontender, nares patent, moist mucus membranes, dentition intact, no oropharyngeal lesions, neck supple, trachea midline, no LAD, no thyromegaly, no JVD Heart: +S1/S2, irregularly irregular, no m/r/g Lungs: equal air entry bilaterally, no rales/rhonchi/wheezes Abd: +BS, soft, NT/ND, no masses/organomegaly/ascites Ext: warm, 2+ pulses in UE/LE bilaterally, no clubbing/cyanosis or edema Neuro: nonfocal, patient AA&O x 4, speech intact, no facial droop, moving all extremities on command with equal strength 5/5, gait not assessed Results & Data Results & Data Vital Signs (Past 12 Hours) Vital Signs Temp Pulse Resp BP Pulse Ox O2 Del Method 01/21/24 02:50 71 18 96 01/21/24 02:40 76 23 96 01/21/24 02:30 74 19 96 01/21/24 02:20 75 21 97 01/21/24 02:10 81 18 93 01/21/24 02:00 134/76 01/21/24 02:00 77 19 96 01/21/24 01:55 75 19 94 01/21/24 01:55 107/71 01/21/24 01:50 74 20 98 01/21/24 01:46 76 18 96 01/21/24 01:46 136/94 01/21/24 01:44 90 01/21/24 01:00 81 19 96 01/21/24 00:50 79 17 97 01/21/24 00:40 80 16 96 01/21/24 00:30 67 18 98 01/21/24 00:25 98 Room Air 01/21/24 00:20 80 20 93 01/21/24 00:10 78 22 95 01/21/24 00:00 79 20 95 01/20/24 23:50 77 18 95 01/20/24 23:44 80 19 94 01/20/24 23:44 78 01/20/24 22:36 36.9 C 87 24 136/87 96 Room Air Laboratory Results Laboratory Results WBC 12.64 K/ul (4.8-10.8) H 01/20/24 23:42 RBC 4.19 M/uL (4.20-5.40) L 01/20/24 23:42 Hgb 12.9 g/dl (12.0-16.0) 01/20/24 23:42 POC Hgb 12.9 g/dl (12.0-16.0) 01/21/24 00:39 Hct 39.9 % (37.0-47.0) 01/20/24 23:42 POC Hct 38 % (37-47) 01/21/24 00:39 MCV 95.2 fL (80.0-100.0) 01/20/24 23:42 MCH 30.8 pg (25.0-34.0) 01/20/24 23:42 MCHC 32.3 g/dL (32.0-36.0) 01/20/24 23:42 RDW Std Deviation 45.3 fL (36.4-46.3) 01/20/24 23:42 RDW Coeff of Carrol 12.8 % (11.5-14.5) 01/20/24 23:42 Plt Count 228 K/uL (130-400) 01/20/24 23:42 MPV 11.2 fL (9.4-12.4) 01/20/24 23:42 Immature Gran % (Auto) 0.4 % 01/20/24 23:42 Neut % (Auto) 68.4 % 01/20/24 23:42 Lymph % (Auto) 18.1 % 01/20/24 23:42 [place] % (Auto) 8.1 % 01/20/24 23:42 Eos % (Auto) 4.7 % 01/20/24 23:42 Baso % (Auto) 0.3 % 01/20/24 23:42 Neut # (Auto) 8.64 K/uL (1.40-6.50) H 01/20/24 23:42 Lymph # (Auto) 2.29 K/uL (1.20-3.40) 01/20/24 23:42 [place] # (Auto) 1.03 K/uL (0.11-0.59) H 01/20/24 23:42 Eos # (Auto) 0.59 K/uL (0.00-0.50) H 01/20/24 23:42 Baso # (Auto) 0.04 K/uL (0.00-0.20) 01/20/24 23:42 Immature Gran # (Auto) 0.05 K/uL (0.01-0.20) 01/20/24 23:42 PT 11.4 Seconds (9.0-12.0) 01/20/24 23:42 INR 1.0 (0.9-1.1) 01/20/24 23:42 APTT 25 Seconds (21-31) 01/20/24 23:42 PTT Ratio 0.9 01/20/24 23:42 POC Sodium 138 mmol/L (135-144) 01/21/24 00:39 Sodium 138 mmol/L (136-145) 01/20/24 23:42 POC Potassium 4.1 mmol/L (3.3-5.0) 01/21/24 00:39 Potassium 4.5 mmol/L (3.5-5.1) 01/20/24 23:42 POC Chloride 104 mmol/L (101-112) 01/21/24 00:39 Chloride 104 mmol/L (98-107) 01/20/24 23:42 Carbon Dioxide 27 mmol/L (21-32) 01/20/24 23:42 POC Total CO2 25 mmol/L (24-31) 01/21/24 00:39 Anion Gap 7 (3-11) 01/20/24 23:42 POC Anion Gap 14.0 mmol/L (16-25) L 01/21/24 00:39 POC BUN 35 mg/dl (7-18) H 01/21/24 00:39 BUN 38 mg/dl (6-23) H 01/20/24 23:42 Creatinine 0.87 mg/dl (0.6-1.2) 01/20/24 23:42 POC Creatinine 0.9 mg/dl (0.6-1.3) 01/21/24 00:39 Est Cr Clr Drug Dosing 45.7 ml/min 01/20/24 23:42 Est GFR ( Amer) 69.4 ml/min 01/20/24 23:42 Est GFR (Non-Af Amer) 59.9 ml/min 01/20/24 23:42 BUN/Creatinine Ratio 43.7 (10-20) H 01/20/24 23:42 Glucose 104 mg/dl (70-99(Fasting)) H 01/20/24 23:42 POC Glucose (other) 105 mg/dl (70-99) H 01/21/24 00:39 Calcium 9.6 mg/dl (8.6-10.3) 01/20/24 23:42 POC Ioniz Calcium Archana 1.31 mmol/l (1.12-1.32) 01/21/24 00:39 Magnesium 2.0 mg/dl (1.7-2.4) 01/20/24 23:42 Total Bilirubin 0.4 mg/dl (0.2-1.0) 01/20/24 23:42 AST 40 U/L (13-39) H 01/20/24 23:42 ALT 32 U/L (7-52) 01/20/24 23:42 Alkaline Phosphatase 109 U/L (34-104) H 01/20/24 23:42 Troponin I High Sens 25.0 pg/ml (0-14) H 01/21/24 02:17 Total Protein 6.5 gm/dl (6.0-8.3) 01/20/24 23:42 Albumin 3.6 gm/dl (3.4-5.0) 01/20/24 23:42 Globulin 2.9 gm/dl (2.5-4.0) 01/20/24 23:42 Albumin/Globulin Ratio 1.2 (0.9-2) 01/20/24 23:[address] 01/21/24 00:02 Exam(s): CT HEAD Without Contrast EXAM: CT Head Without Intravenous Contrast CLINICAL HISTORY: Reason for exam: gait imbalance, on thinners. TECHNIQUE: Axial computed tomography images of the head/brain without intravenous contrast. CTDI is 36.05 mGy and DLP is 624.41 mGy-cm. Automated exposure control was utilized for the study. A dose lowering technique was utilized adhering to the principles of ALARA. COMPARISON: Comparison made to prior head CT from July 29, 2018. FINDINGS: Brain: Remote ischemic injury of the left capsule. No hemorrhage. Moderate nonspecific white matter changes. No edema. Ventricles: Mild ventriculomegaly. Bones/joints: Unremarkable. No acute fracture. Soft tissues: Bilateral lens replacements. Sinuses: Status post endoscopic sinus surgery. No acute sinusitis. Mastoid air cells: Unremarkable as visualized. No mastoid effusion. IMPRESSION: No evidence of acute intracranial pathology. Electronically signed by: Yanira Kumar MD 01/21/24 02:18 AM Head CTA 01/21/24 00:04 CR Exam(s): CTA HEAD With Contrast IV Amt: 115 ml optiray 320 EXAM: CT Angiography Head With Intravenous Contrast CLINICAL HISTORY: Reason for exam: gait imbalance, h/o CVA, on thinners. TECHNIQUE: Axial computed tomographic angiography images of the head with intravenous contrast. CTDI is 14.68 mGy and DLP is 543.95 mGy-cm. Automated exposure control was utilized for the study. A dose lowering technique was utilized adhering to the principles of ALARA. MIP reconstructed images were created and reviewed. CONTRAST: Patient received 115 ml optiray 320 of IV contrast COMPARISON: Comparison made to prior CT angiogram of the head from July 29, 2018. FINDINGS: The dural venous sinuses are draining. Right internal carotid artery: No acute findings. Intracranial segment is patent with no significant stenosis. No aneurysm. Right anterior cerebral artery: Unremarkable. No occlusion or significant stenosis. No aneurysm. Right middle cerebral artery: Unremarkable. No occlusion or significant stenosis. No aneurysm. Right posterior cerebral artery: Unremarkable. No occlusion or significant stenosis. No aneurysm. Right vertebral artery: Unremarkable as visualized. Left internal carotid artery: No acute findings. Intracranial segment is patent with no significant stenosis. No aneurysm. Left anterior cerebral artery: There is a focal high-grade stenosis of the left A2 segment. No aneurysm. Left middle cerebral artery: Unremarkable. No occlusion or significant stenosis. No aneurysm. Left posterior cerebral artery: Unremarkable. No occlusion or significant stenosis. No aneurysm. Left vertebral artery: Unremarkable as visualized. Basilar artery: Unremarkable. No occlusion or significant stenosis. No aneurysm. IMPRESSION: There is a focal high-grade stenosis of the left A2 segment concerning for acute thromboembolic disease. Communications: Verify Receipt Electronically signed by: Yanira Kumar MD 01/21/24 02:14 AM Neck CTA 01/21/24 00:04 Exam(s): CTA NECK With Contrast IV Amt: 115 ml optiray 320 EXAM: CT Angiography Neck With Intravenous Contrast CLINICAL HISTORY: Reason for exam: gait imbalance, h/o CVA, on thinners. TECHNIQUE: Routine carotid CT angiography protocol was performed with intravenous contrast. NASCET criteria using the distal ICAs for comparison were used for evaluation of stenoses. CTDI is 14.68 mGy and DLP is 543.95 mGy-cm. Automated exposure control was utilized for the study. A dose lowering technique was utilized adhering to the principles of ALARA. MIP reconstructed images were created and reviewed. CONTRAST: Patient received 115 ml optiray 320 of IV contrast COMPARISON: Comparison made to prior CT angiogram of the neck from July 29, 2018. FINDINGS: VASCULATURE: Right common carotid artery: Unremarkable. No occlusion or significant stenosis. No dissection. Right internal carotid artery: Unremarkable. Extracranial segment is patent with no occlusion or significant stenosis. No dissection. Right external carotid artery: Unremarkable. No occlusion. Right vertebral artery: Unremarkable. No occlusion or significant stenosis. No dissection. Left common carotid artery: Unremarkable. No occlusion or significant stenosis. No dissection. Left internal carotid artery: Unremarkable. Extracranial segment is patent with no occlusion or significant stenosis. No dissection. Left external carotid artery: Unremarkable. No occlusion. Left vertebral artery: Unremarkable. No occlusion or significant stenosis. No dissection. 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 No acute fracture. Soft tissues: A tiny right thyroid nodule. Lung apices: Clear. CAROTID STENOSIS REFERENCE USING NASCET CRITERIA: % ICA stenosis = (1 - narrowest ICA diameter/diameter of distal cervical ICA) x 100. Mild - <50% stenosis. Moderate - 50-69% stenosis. Severe - 70-94% stenosis. Near occlusion - 95-99% stenosis. Occluded - 100% stenosis. IMPRESSION: Negative CTA neck. Electronically signed by: Yanira Kumar MD 01/21/24 02:10 AM ECG Additional Comments: EKG with atrial fibrillation at 71 bpm, right bundle branch block present, likely inferior infarct age undetermined PG Care Time/CCT Total # of Minutes Spent Total Time Spent with Patient: Total time spent is greater than 50% in coordination of care (as documented) at patient's floor/unit and/or counseling patient: Coding Level of Care Code 50242 INT INP/OBS CARE Diagnoses Gait instability R26.81 Longstanding persistent atrial fibrillation I48.11 Atrial fibrillation type: longstanding persistent Primary hypertension I10 Hypertension type: primary hypertension Mild persistent asthma J45.30 (2) Atrial fibrillation Atrial fibrillation type: longstanding persistent Qualified Code(s): I48.11 - Longstanding persistent atrial fibrillation (3) Hypertension Hypertension type: primary hypertension Qualified Code(s): I10 - Essential (primary) hypertension
[2024-01-21] MEDS ORDERED: ALBUTEROL HFA 8 GM INHALER INH PRN (05:20)
[2024-01-21] MEDS ORDERED: PHARMACIST DISCHARGE MED REC CONSULT PRN (05:20)
[2024-01-21 06:09] LABS: Appearance Urine Clear (Clear); Bacteria Urine Automated Negative (Negative); Bilirubin Urine Negative (Negative); Blood Urine Trace (Negative); Color Urine Yellow; Glucose Urine UA Negative (Negative); Ketones Urine Negative (Negative); Leukocyte Esterase Urine 1+ (Negative); Nitrite Urine Negative (Negative); Protein Urine Negative (Negative); RBC Urine Automated 0-4 /hpf (0-4); Specific Gravity Urine 1.016 (1.000-1.030); Urobilinogen Urine Negative (Negative)
[2024-01-21] MEDS ORDERED: ATORVASTATIN 40 MG TAB PO SCH (09:00)
[2024-01-21] MEDS: UMECLIDINIUM BROMIDE 62.5MCG/BLISTER 7 PUFFS/INHALER INH SCH (09:52)
[2024-01-21] MEDS: APIXABAN 5 MG TABLET PO SCH (09:53)
[2024-01-21] MEDS: guaiFENesin 600 MG TABCR PO SCH (09:53)
[2024-01-21] MEDS: ASPIRIN 81 MG ECTAB PO SCH (09:53)
[2024-01-21] MEDS: FLUTICASONE/VILANTEROL 100/25MCG 14 PUFFS/INHALER INH SCH (09:53)
[2024-01-21] MEDS: AZELASTINE HCL 0.1% NASAL 200 SPRAYS/27,400 MCG BTL SCH (09:53)
--- NOTE | 2024-01-21 10:15 | Neurology Consultation ---
Date of Consultation January 21, 2024 Assessment & Plan (1) Gait instability: History of Present Illness Attending Physician: Holland Mcrae History of Present Illness pt this morning feeling little better. pt with few weeks of having ill defined balance issue. no vertigo. no leg weakness. does feel lightheaded at times. CTA head/neck negative except left A2 segment stenosis. pending mri. pt found to have bed bug so she had to be deconed today and change room. pt planned for cardioversion today. pt agree that she does not drink much water usually. admission HPI: Hiwot Davis is a very pleasant 88-year-old female with history of atrial fibrillation on Eliquis anticoagulation, prior stroke with no residual deficit, hypertension and hyperlipidemia presenting from home with worsening gait imbalance. Patient reports that her gait has been progressively worsening over the last several weeks however, became acutely worse this afternoon around 14:00. Patient felt dizzy and needed to place her hand on the wall to balance. She has also had a dull headache but denies visual changes, focal numbness/tingling. No additional complaints of fever, chills, chest pain, cough, shortness of breath, nausea, vomiting, diarrhea Patient is scheduled for a cardioversion in the morning 01/21/2024 cardiology. She has been on anticoagulation. Allergies Allergy/AdvReac Type Severity Reaction Status Date / Time nickel Allergy Rash Verified 01/13/24 11:12 No Known Drug Allergies Allergy Unknown Verified 01/13/24 10:09 Home Medications Medication Instructions Recorded Confirmed Type guaifenesin 1,200 mg tablet, 1,200 mg PO QAM 08/20/18 01/21/24 History extended release 12 hr (Mucinex) psyllium husk 3.4 gram/5.4 gram 1 tbsp PO QPM 08/20/18 01/21/24 History oral powder (Metamucil) ascorbate calcium-bioflavonoid 500 1 tab PO QAM 08/21/18 01/21/24 History mg-200 mg tablet (Isabel-C with Bioflavonoids) beta carotene 10,000 unit capsule 15,000 unit PO QAM 08/21/18 01/21/24 History calcium carbonate 500 mg-vitamin 1 tab PO QAM 08/21/18 01/21/24 History D3 5 mcg (200 unit) tablet (Calcium 500 + D) coQ10 (ubiquinol) 100 mg capsule 100 mg PO QPM 08/21/18 01/21/24 History folic acid 400 mcg tablet 0.4 mg PO QAM 08/21/18 01/21/24 History inositol 500 mg tablet 500 mg PO QPM 08/21/18 01/21/24 History lutein 20 mg capsule 20 mg PO QAM 08/21/18 01/21/24 History magnesium 250 mg tablet 250 mg PO BID 08/21/18 01/21/24 History methylsulfonylmethane 1,000 mg 1,000 mg PO BID 08/21/18 01/21/24 History capsule (MSM) pantothenic acid (vit B5) 500 mg 500 mg PO QPM 08/21/18 01/21/24 History tablet vitamin B12 500 mcg-folic acid 400 1 tab PO QAM 08/21/18 01/21/24 History mcg tablet cholecalciferol (vitamin D3) 125 125 mcg PO QPM 03/17/23 01/21/24 History mcg (5,000 unit) capsule fexofenadine 180 mg tablet 180 mg PO QPM 04/08/23 01/21/24 History (Chrissy Allergy) multivitamin 1 tab PO QPM 04/08/23 01/21/24 History vitamin B complex 1 tab PO QPM 04/08/23 01/21/24 History amoxicillin 500 mg tablet 2,000 mg (4 x 500 mg) PO ONCE #4 05/06/23 01/21/24 Rx tabs ASHWAGANDA 1 dose PO QAM 05/20/23 01/21/24 History milk thistle 500 mg capsule 500 mg PO QAM 05/20/23 01/21/24 History acetylcysteine 600 mg capsule (NAC) 600 mg PO QAM 05/26/23 01/21/24 History montelukast 10 mg tablet 10 mg PO QAM #90 tabs 08/06/23 01/21/24 Rx (Singulair) apixaban 5 mg tablet (Eliquis) 5 mg PO BID #180 tabs 12/17/23 01/21/24 Rx budesonide-formoterol HFA 80 2 puff inhalation BID #10.2 grams 12/18/23 01/21/24 Rx mcg-4.5 mcg/actuation aerosol inhaler (Symbicort) albuterol sulfate 90 mcg/actuation 2 puff inhalation QID PRN 12/25/23 01/21/24 Rx aerosol inhaler (Ventolin HFA) Shortness Of Breath #8.5 grams alprazolam 0.25 mg tablet 0.25 mg PO HS PRN insomnia #45 tabs 01/01/24 01/21/24 Rx alendronate 70 mg tablet (Fosamax) 70 mg PO WK 01/13/24 01/21/24 History azelastine 137 mcg (0.1 %) nasal 1 spray intranasal BID 01/13/24 01/21/24 History spray aerosol metformin 500 mg tablet,extended 500 mg PO QPM 01/13/24 01/21/24 History release 24 hr metoprolol succinate 25 mg 12.5 mg PO QPM 01/13/24 01/21/24 History tablet,extended release 24 hr olmesartan 40 1 tab PO QPM 01/13/24 01/21/24 History mg-hydrochlorothiazide 25 mg tablet umeclidinium 62.5 mcg/actuation 1 inh inhalation QAM 01/13/24 01/21/24 History blister powder for inhalation (Incruse Ellipta) Patient History Medical History Obesity (BMI 30.0-34.9) per pt, reason for metformin Atrial fibrillation dx'd 12/2023. SVT (supraventricular tachycardia) Episode SVT during 04/2020 stress test (lasting approximately 50 seconds) con verting to SR with carotid massage Stroke 07/2018 > no residual effects, plavix discontinued (hx GIB) Glaucoma History of GI bleed r/t plavix (since discontinued) History of anemia Uterine fibroid Osteoarthritis Hearing deficit Hypertension "borderline" Hyperlipidemia "borderline" Asthma uses PRN 3xwk on avg IBS (irritable bowel syndrome) resolved Surgical History History of arthroscopy of right knee History of nasal polypectomy History of adenoidectomy History of right knee joint replacement History of eye surgery History of total knee replacement Left TKA (04/03/21): SAB at L3 (x1 attempt) + PNB at [facility] History of gynecologic surgery Anterior cystocele repair History of surgical procedure on eye proper using laser R/L (for glaucoma) History of cataract surgery R/L History of colonoscopy Sigmoidoscopy exam History of herniorrhaphy History of tooth extraction History of tonsillectomy Family History Family/Other Family history of diabetes mellitus Father Prostate cancer Brother Prostate cancer Other No family history of adverse response to anesthesia Denies family history of Ovarian cancer Myocardial infarction Breast cancer Colorectal cancer Social History Smoking Status: Former smoker Second Hand Exposure: Yes ( until 1989); Do You Dip or Chew Tobacco: No; Tobacco Cessation Education Requested by Patient: No Hx Alcohol Use: Yes Alcohol type: wine Hx Substance Use: No Preferred Language: Turkish Communication Ability: Effective Service Operations Manager Required: No Beliefs That Will Affect Care: None marital status: / Current Living Situation: Alone Other Information That Helps Us Care for You: No Feels Safe at Home: Yes Safety Concerns: Feels Safe At This Time Assistive Devices: Cane and Glasses Review of Systems Review of Systems: All systems reviewed & are unremarkable except as noted in Subjective Constitutional: as per Subjective / HPI Eyes: as per Subjective / HPI Ear, Nose, Mouth, Throat: as per Subjective / HPI Respiratory: as per Subjective / HPI Cardiovascular: as per Subjective / HPI Gastrointestinal: as per Subjective / HPI Musculoskeletal: as per Subjective / HPI Integumentary: as per Subjective / HPI Neurologic: as per Subjective / HPI Psychiatric: as per Subjective / HPI Endocrine: as per Subjective / HPI Hematologic / Lymphatic: as per Subjective / HPI Allergy / Immunological: as per Subjective / HPI Exam (Neuro) Physical Exam: HEENT: normocephalic Neuro: Mental: AOx4, fluent speech, normal comprehension, no apraxia, no L/R confusion, no neglect CN: PERRL, Full EOM, symmetric face, intact sensation t/o face, midline T/U/P, 5/5 SCM/traps. Motor: No abnormal movements, normal tone and bulk, 5/5 t/o bilaterally Sens: intact to touch b/l grossly Coord: intact FNT b/l DTR: 2+ sym b/l Gait: deferred, Impression: 88 yo female with subacute/chronic ill defined imbalance/lightheadedness in setting of atrial fib and dehydration likely. given risk for stroke, reasonable to do stroke work up as planned. Recommendations: 1. Standard stroke work up as planned 2. continue anticoagulation as now. 3. Images: MRI brain (stroke protocol), TTE with bubble, 4. Permissive Hypertension for next 24-4 8 hrs. Keep SBP goal range less than 220. Avoid hypotension. Do not stop beta-therese if on it. 5. If noted for large intracranial vesse l stenosis, slow reduction of BP and allowing permissive HTN next 5-7 days. 6. Long-term SBP goal less than 130. 7. Plenty of hydration including IV flui d if possible (use isotonic solution) next 1-2 days. Avoid hypovolemia and hypotension. 8. Initiate DVT prevention therapy. 9. Avoid hypoglycemia, serum glucose goa l during hospitalization: 140-180. 10. Long-term HgA1c goal less than 7. 11. Start statin if not on it and no abs olute contraindication, long-term LDL goal less than 70. 12. Head of bed up 30 degrees if possibl e. 15. Fall precaution 16. Consult physical and occupational th erapy if mri brain negative for stroke, she should go ahead with cardioversion as her atrial fib maybe contributing to her symptoms. Chart reviewed I have spent more than 50% educating patient about potential diagnosis and neurological evaluation and coordinating care with patient's treatment team. Total time spent (including chart review and coordination of care): 60 min (this includes chart review). Results & Data Vital Signs (Past 12 Hours) Vital Signs Temp Pulse Pulse Resp BP BP Pulse Ox 01/21/24 07:24 72 12 133/72 94 01/21/24 05:20 01/21/24 04:30 75 19 01/21/24 04:20 76 19 01/21/24 04:10 74 19 01/21/24 04:00 153/77 H 01/21/24 04:00 76 20 97 01/21/24 03:52 75 01/21/24 03:50 77 18 96 01/21/24 03:40 79 19 95 01/21/24 03:30 81 21 92 01/21/24 03:20 79 20 91 01/21/24 03:10 88 22 94 01/21/24 03:01 82 21 99 01/21/24 03:01 147/95 H 01/21/24 03:00 87 18 98 01/21/24 02:50 71 18 96 01/21/24 02:40 76 23 96 01/21/24 02:30 74 19 96 01/21/24 02:20 75 21 97 01/21/24 02:10 81 18 93 01/21/24 02:00 134/76 01/21/24 02:00 77 19 96 01/21/24 01:55 75 19 94 01/21/24 01:55 107/71 01/21/24 01:50 74 20 98 01/21/24 01:46 76 18 96 01/21/24 01:46 136/94 01/21/24 01:44 90 01/21/24 01:00 81 19 96 01/21/24 00:50 79 17 97 01/21/24 00:40 80 16 96 01/21/24 00:30 67 18 98 01/21/24 00:25 98 01/21/24 00:20 80 20 93 01/21/24 00:10 78 22 95 01/21/24 00:00 79 20 95 01/20/24 23:50 77 18 95 01/20/24 23:44 80 19 94 01/20/24 23:44 78 01/20/24 22:36 36.9 C 87 24 136/87 96 01/20/24 22:25 O2 Del Method 01/21/24 07:24 Room Air 01/21/24 05:20 Room Air 01/21/24 04:30 01/21/24 04:20 01/21/24 04:10 01/21/24 04:00 01/21/24 04:00 01/21/24 03:52 01/21/24 03:50 01/21/24 03:40 01/21/24 03:30 01/21/24 03:20 01/21/24 03:10 01/21/24 03:01 01/21/24 03:01 01/21/24 03:00 01/21/24 02:50 01/21/24 02:40 01/21/24 02:30 01/21/24 02:20 01/21/24 02:10 01/21/24 02:00 01/21/24 02:00 01/21/24 01:55 01/21/24 01:55 01/21/24 01:50 01/21/24 01:46 01/21/24 01:46 01/21/24 01:44 01/21/24 01:00 01/21/24 00:50 01/21/24 00:40 01/21/24 00:30 01/21/24 00:25 Room Air 01/21/24 00:20 01/21/24 00:10 01/21/24 00:00 01/20/24 23:50 01/20/24 23:44 01/20/24 23:44 01/20/24 22:36 Room Air 01/20/24 22:25 Room Air PG Care Time/CCT Total # of Minutes Spent Total Time Spent with Patient: Total time spent is greater than 50% in coordination of care (as documented) at patient's floor/unit and/or counseling patient: Coding Level of Care Code 02838 IN/OBS CONSULT LVL 4,60M Diagnoses Gait instability R26.81
[2024-01-21] MEDS: GADOBUTROL 65ML VIAL IV ONE (11:35)
--- NOTE | 2024-01-21 12:19 | Magnetic Resonance Report ---
MR brain wo/w con CLINICAL HISTORY: ?CVA TECHNIQUE: Multiplanar and multisequence MR images of the brain were obtained prior to and following administration of gadolinium contrast. Comparison: Comparison is made to CTA head and neck 01/21/2024 FINDINGS: Multiple punctate foci of infarct are seen in the left cerebrum. Foci of T2 and FLAIR hyperintensity are noted in the paraventricular areas consistent with chronic small vessel ischemic disease. Ex vacu o ventriculomegaly and sulcal enlargement is noted compatible with diffuse volume loss. No mass or ab normal enhancement is seen. There is no mass effect or midline shift. There is no evidence of acute i ntraparenchymal hemorrhage. No extra axial fluid collections are seen. The corpus callosum, pituitary gland, and cerebellar tonsils appear grossly unremarkable. Flow voids of the major intracranial arterial vessels are identified. The imaged portions of the para nasal sinuses, mastoid air cells, and orbits are unremarkable. IMPRESSION: Tiny punctate foci of infarct on the left which may represent numerous small emboli. No hemorrhagic t ransformation is seen. ACT 112: Negative or not required by law. Electronically signed by: Mathieu Marcum M.D. 01/21/2024 12:17 PM
[2024-01-21] MEDS: ACETAMINOPHEN 325 MG TAB PO PRN (15:42)
[2024-01-21] MEDS: PRAVASTATIN SOD 40 MG TAB PO SCH (17:11)
[2024-01-21] MEDS: MELATONIN 3 MG TAB PO PRN (21:49)
[2024-01-21] MEDS: ALPRAZolam 0.5 MG TABLET PO PRN (21:49)
[2024-01-21] MEDS: FEXOFENADINE HCL 180 MG TAB PO SCH (21:50)
[2024-01-22 05:33] LABS: BUN Creatinine Ratio 33.8 (10-20); Calcium 9.7 mg/dl (8.6-10.3); Chol HDL Ratio 3.6 (0-5); Creatinine Clr Calc Pharmacy 54.8 ml/min; Est GFR (African American) 88.8 ml/min; Est GFR (Non-African American) 76.6 ml/min
[2024-01-22 06:41] LABS: Estimated Average Glucose 123 mg/dl; Hemoglobin A1C 5.9 % (4.5-5.6)
--- NOTE | 2024-01-22 07:55 | Pharmacy Report ---
- Date of Service January 22, 2024 - Pharmacy CVA/TIA Medication Review Medications to Prevent Stroke handout has been added to the patients discharge packet. Antiplatelet(s) * aspirin 81mg PO daily Cholesterol * High intensity statin deferred due to history of statin intolerance. Pravastatin 40mg PO daily initiated. DVT Prophylaxis * Pharmacologic and mechanical DVT prophylaxis deferred due to therapeutic anticoagulation. Therapeutic Anticoagulation * Hx Afib/Aflutter noted, and patient is currently receiving apixaban Type 2 Diabetes * Patient does not have T2DM
--- NOTE | 2024-01-22 09:07 | Hospitalist Progress Note ---
Date of Service January 22, 2024 Assessment & Plan (1) Gait instability: Plan: acute decline in her gait 01/21/24 around 1400 superimposed on a progressive decline in balance and stability over the last several weeks. CTA findings as above with high-grade stenosis of the A2 segment noted on the CTA of the neck. This was discussed with the stroke neurologist from [facility]. No acute intervention recommended. allow for permissive hypertension, anticoagulation with apixiban, no hemorrhagic conversion seen MRI brain Left embolic acute CVA Checked urinalysis slighlty abnormal, follow cx hemoglobin A1c 5.9, lipid panel TC, LDL 113, HDL 50 Continue aspirin 81 mg p.o. daily Will initiate pravastatin 40 mg p.o. daily. Patient has tried red yeast rice as well as a statin in the past and developed muscle pain and joint pain after several months. She has never tried pravastatin. She is currently taking co- Q10 as well. If she has pain with pravastatin we will consider just treatment with Zetia PT/OT evaluations appreciated Neurology consultation appreciated (2) Atrial fibrillation: Plan: Patient with atrial fibrillation. She has been on Eliquis anticoagulation 5 mg p.o. twice daily. She was scheduled to have a cardioversion performed 01/21/2024 Will postpone cardioversion until acute stroke workup is complete Continue apixaban 5 mg p.o. twice daily Holding metoprolol, allowing permissive HTN (3) Mild persistent asthma: Plan: chronic. Stable. Continue guaifenesin 1200 mg p.o. every morning Continue albuterol as needed Continue Incruse Ellipta Continue Symbicort Admission and Anticipated Discharge Date Admission Date: January 21, 2024 Physical Exam Physical Exam: some word finding issues, no large deficits cardiac sounds regular despite history of afib Results & Data Results & Data Vital Signs (Past 12 Hours) Vital Signs Temp Pulse Pulse Resp BP Pulse Ox O2 Del Method 01/22/24 08:33 69 01/22/24 08:21 97.9 F 74 16 139/81 97 Room Air 01/22/24 03:44 98.4 F 92 H 18 127/74 95 Room Air 01/21/24 23:06 97.9 F 89 18 129/69 95 Room Air 01/21/24 22:38 Room Air 01/21/24 21:50 99 H Laboratory Results review chemistry PG Care Time/CCT Total # of Minutes Spent Total Time Spent with Patient: Total time spent is greater than 50% in coordination of care (as documented) at patient's floor/unit and/or counseling patient: Coding Level of Care Code 49186 SUB INP/OBS CARE 235MIN Diagnoses Gait instability R26.81 Longstanding persistent atrial fibrillation I48.11 Atrial fibrillation type: longstanding persistent Mild persistent asthma J45.30 (2) Atrial fibrillation Atrial fibrillation type: longstanding persistent Qualified Code(s): I48.11 - Longstanding persistent atrial fibrillation
[2024-01-22] MEDS: SODIUM CHLORIDE 0.9% 1,000 ML IV SCH (09:32)
[2024-01-22] MEDS: PSYLLIUM or GUAR GUM FIBER POWDER PACKET PO PRN (09:32)
--- NOTE | 2024-01-23 06:17 | Electrocardiogram Report ---
Test Reason : Blood Pressure : / mmHG Vent. Rate : 071 BPM Atrial Rate : 000 BPM P-R Int : 000 ms QRS Dur : 132 ms QT Int : 400 ms P-R-T Axes : 000 199 211 degrees QTc Int : 434 ms Atrial fibrillation Right bundle branch block Inferior infarct , age undetermined Limb lead reversal Abnormal ECG When compared with ECG of 05-JAN-2024 15:03, Inferior infarct is now Present Limb lead reversal is now present Confirmed by Yared Coombs ([id number]) on 01/23/2024 6:17:34 AM Referred By: REFERRED SELF Confirmed By:Yared Coombs
[2024-01-23 06:40] LABS: BUN Creatinine Ratio 36.4 (10-20); Calcium 8.7 mg/dl (8.6-10.3); Creatinine Clr Calc Pharmacy 58.9 ml/min; Est GFR (African American) 92.1 ml/min; Est GFR (Non-African American) 79.4 ml/min; Potassium 3.8 mmol/L (3.5-5.1)
--- NOTE | 2024-01-23 12:51 | Communication Note ---
Date of Service: January 23, 2024 By CMS guidelines, a determination that the admission or continued stay is not medically necessary has been made by a member of the UR committee and a phys ician for this hospital stay, therefore a Code 44 will be completed and the Inpatient admission will be changed to outpatient.
--- NOTE | 2024-01-23 18:13 | Discharge Summary ---
Date of Service January 23, 2024 Admission HPI Per Admitting Provider Hiwot Davis is a very pleasant 88-year-old female with history of atrial fibrillation on Eliquis anticoagulation, prior stroke with no residual deficit, hypertension and hyperlipidemia presenting from home with worsening gait imbalance. Patient reports that her gait has been progressively worsening over the last several weeks however, became acutely worse this afternoon around 14:00. Patient felt dizzy and needed to place her hand on the wall to balance. She has also had a dull headache but denies visual changes, focal numbness/tingling. No additional complaints of fever, chills, chest pain, cough, shortness of breath, nausea, vomiting, diarrhea Patient is scheduled for a cardioversion in the morning 01/21/2024 cardiology. She has been on anticoagulation. 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 Discharge Data Allergies Allergy/AdvReac Type Severity Reaction Status Date / Time nickel Allergy Rash Verified 01/13/24 11:12 No Known Drug Allergies Allergy Unknown Verified 01/13/24 10:09 Consultations 01/21/24 03:06 ED Decision to Admit Stat 01/21/24 05:20 Consult Neurology Routine 01/21/24 15:03 Consult Cardiology Routine Ordered Studies Head CT 01/21/24 00:02 Exam(s): CT HEAD Without Contrast EXAM: CT Head Without Intravenous Contrast CLINICAL HISTORY: Reason for exam: gait imbalance, on thinners. TECHNIQUE: Axial computed tomography images of the head/brain without intravenous contrast. CTDI is 36.05 mGy and DLP is 624.41 mGy-cm. Automated exposure control was utilized for the study. A dose lowering technique was utilized adhering to the principles of ALARA. COMPARISON: Comparison made to prior head CT from July 29, 2018. FINDINGS: Brain: Remote ischemic injury of the left capsule. No hemorrhage. Moderate nonspecific white matter changes. No edema. Ventricles: Mild ventriculomegaly. Bones/joints: Unremarkable. No acute fracture. Soft tissues: Bilateral lens replacements. Sinuses: Status post endoscopic sinus surgery. No acute sinusitis. Mastoid air cells: Unremarkable as visualized. No mastoid effusion. IMPRESSION: No evidence of acute intracranial pathology. Electronically signed by: Yanira Kumar MD 01/21/24 02:18 AM Head CTA 01/21/24 00:04 CR Exam(s): CTA HEAD With Contrast IV Amt: 115 ml optiray 320 EXAM: CT Angiography Head With Intravenous Contrast CLINICAL HISTORY: Reason for exam: gait imbalance, h/o CVA, on thinners. TECHNIQUE: Axial computed tomographic angiography images of the head with intravenous contrast. CTDI is 14.68 mGy and DLP is 543.95 mGy-cm. Automated exposure control was utilized for the study. A dose lowering technique was utilized adhering to the principles of ALARA. MIP reconstructed images were created and reviewed. CONTRAST: Patient received 115 ml optiray 320 of IV contrast COMPARISON: Comparison made to prior CT angiogram of the head from July 29, 2018. FINDINGS: The dural venous sinuses are draining. Right internal carotid artery: No acute findings. Intracranial segment is patent with no significant stenosis. No aneurysm. Right anterior cerebral artery: Unremarkable. No occlusion or significant stenosis. No aneurysm. Right middle cerebral artery: Unremarkable. No occlusion or significant stenosis. No aneurysm. Right posterior cerebral artery: Unremarkable. No occlusion or significant stenosis. No aneurysm. Right vertebral artery: Unremarkable as visualized. Left internal carotid artery: No acute findings. Intracranial segment is patent with no significant stenosis. No aneurysm. Left anterior cerebral artery: There is a focal high-grade stenosis of the left A2 segment. No aneurysm. Left middle cerebral artery: Unremarkable. No occlusion or significant stenosis. No aneurysm. Left posterior cerebral artery: Unremarkable. No occlusion or significant stenosis. No aneurysm. Left vertebral artery: Unremarkable as visualized. Basilar artery: Unremarkable. No occlusion or significant stenosis. No aneurysm. IMPRESSION: There is a focal high-grade stenosis of the left A2 segment concerning for acute thromboembolic disease. Communications: Verify Receipt Electronically signed by: Yanira Kumar MD 01/21/24 02:14 AM Neck CTA 01/21/24 00:04 Exam(s): CTA NECK With Contrast IV Amt: 115 ml optiray 320 EXAM: CT Angiography Neck With Intravenous Contrast CLINICAL HISTORY: Reason for exam: gait imbalance, h/o CVA, on thinners. TECHNIQUE: Routine carotid CT angiography protocol was performed with intravenous contrast. NASCET criteria using the distal ICAs for comparison were used for evaluation of stenoses. CTDI is 14.68 mGy and DLP is 543.95 mGy-cm. Automated exposure control was utilized for the study. A dose lowering technique was utilized adhering to the principles of ALARA. MIP reconstructed images were created and reviewed. CONTRAST: Patient received 115 ml optiray 320 of IV contrast COMPARISON: Comparison made to prior CT angiogram of the neck from July 29, 2018. FINDINGS: VASCULATURE: Right common carotid artery: Unremarkable. No occlusion or significant stenosis. No dissection. Right internal carotid artery: Unremarkable. Extracranial segment is patent with no occlusion or significant stenosis. No dissection. Right external carotid artery: Unremarkable. No occlusion. Right vertebral artery: Unremarkable. No occlusion or significant stenosis. No dissection. Left common carotid artery: Unremarkable. No occlusion or significant stenosis. No dissection. Left internal carotid artery: Unremarkable. Extracranial segment is patent with no occlusion or significant stenosis. No dissection. Left external carotid artery: Unremarkable. No occlusion. Left vertebral artery: Unremarkable. No occlusion or significant stenosis. No dissection. 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 No acute fracture. Soft tissues: A tiny right thyroid nodule. Lung apices: Clear. CAROTID STENOSIS REFERENCE USING NASCET CRITERIA: % ICA stenosis = (1 - narrowest ICA diameter/diameter of distal cervical ICA) x 100. Mild - <50% stenosis. Moderate - 50-69% stenosis. Severe - 70-94% stenosis. Near occlusion - 95-99% stenosis. Occluded - 100% stenosis. IMPRESSION: Negative CTA neck. Electronically signed by: Yanira Kumar MD 01/21/24 02:10 AM Brain MRI 01/21/24 05:20 MR brain wo/w con CLINICAL HISTORY: ?CVA TECHNIQUE: Multiplanar and multisequence MR images of the brain were obtained prior to and following administration of gadolinium contrast. Comparison: Comparison is made to CTA head and neck 01/21/2024 FINDINGS: Multiple punctate foci of infarct are seen in the left cerebrum. Foci of T2 and FLAIR hyperintensity are noted in the paraventricular areas consistent with chronic small vessel ischemic disease. Ex vacuo ventriculomegaly and sulcal enlargement is noted compatible with diffuse volume loss. No mass or abnormal enhancement is seen. There is no mass effect or midline shift. There is no evidence of acute intraparenchymal hemorrhage. No extra axial fluid collections are seen. The corpus callosum, pituitary gland, and cerebellar tonsils appear grossly unremarkable. Flow voids of the major intracranial arterial vessels are identified. The imaged portions of the paranasal sinuses, mastoid air cells, and orbits are unremarkable. IMPRESSION: Tiny punctate foci of infarct on the left which may represent numerous small emboli. No hemorrhagic transformation is seen. ACT 112: Negative or not required by law. Electronically signed by: Mathieu Marcum M.D. 01/21/2024 12:17 PM Hospital Course (1) Gait instability: acute decline in her gait 01/21/24 around 1400 superimposed on a progressive decline in balance and stability over the last several weeks. CTA findings as above with high-grade stenosis of the A2 segment noted on the CTA of the neck. This was discussed with the stroke neurologist from [facility]. No acute intervention recommended. allow for permissive hypertension, anticoagulation with apixiban, no hemorrhagic conversion seen MRI brain Left embolic acute CVA Checked urinalysis slightly abnormal, did not treat hemoglobin A1c 5.9, lipid panel TC, LDL 113, HDL 50 Continue aspirin 81 mg p.o. daily Did initiate pravastatin 40 mg p.o. daily. Patient has tried red yeast rice as well as a statin in the past and developed muscle pain and joint pain after several months. She has never tried pravastatin. She is currently taking co- Q10 as well. If she has pain with pravastatin we will consider just treatment with [facility]et[facility] PT/OT evaluations appreciated recommending rehab patient to be transferred to [facility] 01/23/2024 for stroke rehab Neurology consultation appreciated (2) Atrial fibrillation: Patient with atrial fibrillation. She has been on Eliquis anticoagulation 5 mg p.o. twice daily. She was scheduled to have a cardioversion performed 01/21/2024 Will postpone cardioversion until acute stroke workup is complete Continue apixaban 5 mg p.o. twice daily Holding metoprolol, allowing permissive HTN (3) Mild persistent asthma: chronic. Stable. No cough, shortness of breath or wheeze Continue guaifenesin 1200 mg p.o. every morning Continue albuterol as needed Continue Incruse Ellipta Continue Symbicort Total Time Total Time Spent Total Time Spent (In Minutes): It required greater than 30 minutes to prepare this patient for discharge. 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 Activity: Per Instructions section Activity Comment: Pt/OT eval and treat Non-emergency contact: Primary Care Provider and Neurologist Call non-emergency contact if: your symptoms worsen Follow-up/Referrals: Nae Borrego MD [Primary Care Provider] - Diet: Heart Healthy Addtl Attending Provider Instructions: pt underwent an embolic stroke, and did have tele health stroke eval from [place] which recommended continued anticoagulation, no other intervention she has been intolerant to high intensity statins in the past an we have started pravastatin to try to providde risk reduction Pending Studies at Discharge: No Stand-Alone Forms: My [employer], Medications to Prevent Stroke Skilled Items Patient informed of condition?: Yes DNR: No Discharge Level of Care: Acute rehab Communicable Disease: No Discharge Prognosis: Stable Lines: None Urinary Catheter: No Medications and DC Order Prescriptions: New pravastatin 40 mg Tablet 40 mg PO DAILY@1700 Qty: 30 0RF melatonin 3 mg Tablet 3 mg PO HS PRN (Reason: sleep) Qty: 30 0RF Continued amoxicillin 500 mg tablet 2,000 mg PO ONCE Qty: 4 3RF Rx Instructions: 4 tabs 1 hour prior to procedure montelukast [Singulair] 10 mg tablet 10 mg PO QAM Qty: 90 1RF budesonide-formoterol [Symbicort] 80-4.5 mcg/actuation HFA aerosol inhaler 2 puff inhalation BID Qty: 10.2 6RF Rx Instructions: with a rinse of mouth afterwards. albuterol sulfate [Ventolin HFA] 90 mcg/actuation HFA aerosol inhaler 2 puff INHALATION QID PRN (Reason: Shortness Of Breath) Qty: 8.5 5RF alprazolam 0.25 mg tablet 0.25 mg PO HS PRN (Reason: insomnia) Qty: 45 0RF Rx Instructions: Take 1- 1.5 tabs QHS prn insomnia Ongoing therapy Supervising physician Nae Borrego MD [facility] [id number] cholecalciferol (vitamin D3) 125 mcg (5,000 unit) capsule 125 mcg PO QPM multivitamin Tablet 1 tab PO QPM fexofenadine [Chrissy Allergy] 180 mg tablet 180 mg PO QPM Eliquis 5 mg tablet 5 mg PO BID Qty: 180 2RF guaifenesin [Mucinex] 1,200 mg Tablet Extended Release 12hr 1,200 mg PO QAM Metamucil 3.4 gram/5.4 gram Powder 1 tbsp PO QPM folic acid 400 mcg Tablet 0.4 mg PO QAM magnesium 250 mg Tablet 250 mg PO BID calcium carbonate-vitamin D3 [Calcium 500 + D] 500 mg(1,250mg) -200 unit Tablet 1 tab PO QAM vitamin W21-yvauh acid 500-400 mcg Tablet 1 tab PO QAM azelastine 137 mcg (0.1 %) Aerosol,Phil Campbell 1 spray INTRANASAL BID Rx Instructions: administer into each nostril alendronate [Fosamax] 70 mg tablet 70 mg PO WK Rx Instructions: 70 mg PO once weekly; metformin 500 mg tablet extended release 24 hr 500 mg PO QPM Rx Instructions: Take with food. Incruse Ellipta 62.5 mcg/actuation blister with device 1 inh inhalation QAM Discontinued ASHWAGANDA 1 dose PO QAM milk thistle 500 mg capsule 500 mg PO QAM Rx Instructions: give with meal/snack vitamin B complex Tablet Extended Release 1 tab PO QPM pantothenic acid (vit B5) 500 mg Tablet 500 mg PO QPM beta carotene 10,000 unit Capsule 15,000 unit PO QAM inositol 500 mg Tablet 500 mg PO QPM Isabel-C with Bioflavonoids 500-200 mg Tablet 1 tab PO QAM coQ10 (ubiquinol) 100 mg Capsule 100 mg PO QPM methylsulfonylmethane [MSM] 1,000 mg Capsule 1,000 mg PO BID lutein 20 mg Capsule 20 mg PO QAM acetylcysteine [NAC] 600 mg capsule 600 mg PO QAM metoprolol succinate 25 mg tablet extended release 24 hr 12.5 mg PO QPM olmesartan-hydrochlorothiazide 40-25 mg tablet 1 tab PO QPM Discharge Orders: Discharge Order (Routine); Ordered 01/23/24 Ordered By: Júnior Moon/Other Patient Handouts: Discharge Instructions for Stroke Admission Data Admit Date/Time: 01/22/24 13:26 Attending Provider: Júnior Chamberlain Admit Provider: Angeles Schilling Primary Care Provider: Nae Borrego Other Providers: Angeles Schilling; Tj Sanchez; [facility] Other Interventions: Discharge Summary Assessment (RN) Last Done: 01/23/24 13:04 Coding Level of Care Code 10653 INP/OBS DISCH >30 MIN Diagnoses Gait instability R26.81 Longstanding persistent atrial fibrillation I48.11 Atrial fibrillation type: longstanding persistent Mild persistent asthma J45.30
== END 2024-01-23 14:22 | DRG 65 ==
LOC: ED 22:34 → EDINP 22:34 → SUATTDRO 01-21 03:42 → 2W 01-21 13:09 → 2N 01-21 13:22 → 2W 01-21 14:17

== ENCOUNTER 2024-01-25 15:34 | Observation (INO) ==
--- OUTSIDE RECORDS SUMMARY | 2024-01-25 15:40 | External Medical Summary | Continuity of Care Document ---
Author Name Unknown Organization [facility] [address] Address [address] [place], [place] [id number] Care Team Providers Care Senior Manufacturing Technician Name Role Phone Luis Byrd Primary Care Physician [phone] [id number] Date(s): 01/21/24 - 01/21/[address] [place], [place] [id number] [place] Discharge Disposition: Home or Self Care Attending Physician: DO Echevarria Grant W Referring Physician: MD Nazario Kyle Allergies, Adverse Reactions, Alerts No Known Allergies Medications AAKD Start: 08/27/18 11:19:00 EDT, AAKD, See Instructions, 1,000 mg po daily Start Date: 08/27/18 Status: Ordered ALPRAZolam 0.25 mg oral tablet Start: 08/27/18 10:55:00 EDT, 1 tab, PO, qhs Start Date: 08/27/18 Status: Ordered aspirin 81 mg oral tablet Start: 08/27/18 10:55:00 EDT, 1 tab, PO, Daily Start Date: 08/27/18 Status: Ordered atorvastatin 40 mg oral tablet Start: 08/01/18 10:25:00 EDT, 1 tab, PO, Daily, Disp# 30 tab, Refills: 3, Pharmacy: [id number] Start Date: 08/01/18 Stop Date: 11/29/18 Status: Ordered beta-carotene Start: 08/27/18 11:01:00 EDT, 64858 units, PO, Daily Start Date: 08/27/18 Status: Ordered bioflavonoids Start: 08/27/18 11:23:00 EDT, 1,000 mg =, Daily Start Date: 08/27/18 Status: Ordered biotin Start: 08/27/18 11:02:00 EDT, 1,500 mcg =, PO, Daily Start Date: 08/27/18 Status: Ordered boswellia Start: 08/27/18 11:21:00 EDT, boswellia, 500mg po bid Start Date: 08/27/18 Status: Ordered butchers broom Start: 08/27/18 11:22:00 EDT, butchers broom, 500mg po bid Start Date: 08/27/18 Status: Ordered calcium (as carbonate)-vitamin D 600 mg-200 intl units oral tablet Start: 08/27/18 11:17:00 EDT, 1 tab, PO, bid Start Date: 08/27/18 Status: Ordered choline bitartrate Start: 08/27/18 11:12:00 EDT, 250mg daily Start Date: 08/27/18 Status: Ordered Claritin 10 mg oral tablet Start: 08/27/18 10:56:00 EDT, 1 tab, PO, Daily, PRN: as needed for allergy symptoms Start Date: 08/27/18 Status: Ordered Co Q-10 Start: 08/27/18 11:23:00 EDT, 100 mg =, PO, Daily Start Date: 08/27/18 Status: Ordered curcumin Start: 08/27/18 11:24:00 EDT, curcumin, 500mg po bid Start Date: 08/27/18 Status: Ordered DMG Start: 08/27/18 11:24:00 EDT, DMG, 200mg daily Start Date: 08/27/18 Status: Ordered Isabel-C 500 mg oral tablet Start: 08/27/18 11:14:00 EDT, 500 mg =, PO, Daily Start Date: 08/27/18 Status: Ordered eyebright Start: 08/27/18 11:25:00 EDT, eyebright, 500mg po bid Start Date: 08/27/18 Status: Ordered Fish Oil 1000 mg oral capsule Start: 08/27/18 11:26:00 EDT, 1 cap, PO, bid Start Date: 08/27/18 Status: Ordered folic acid Start: 08/27/18 11:14:00 EDT, 400 mcg =, PO, Daily Start Date: 08/27/18 Status: Ordered Garlic Oil oral capsule Start: 08/27/18 11:27:00 EDT, 1,000 mg =, PO, bid Start Date: 08/27/18 Status: Ordered ginkgo Start: 08/27/18 11:27:00 EDT, 60 mg =, PO, bid Start Date: 08/27/18 Status: Ordered glucosamine 750 mg oral tablet Start: 08/27/18 11:28:00 EDT, 1 tab, PO, bid Start Date: 08/27/18 Status: Ordered hawthorn Start: 08/27/18 11:29:00 EDT, hawthorn, 500mg po bid Start Date: 08/27/18 Status: Ordered Hyaluronic acid Start: 08/27/18 11:26:00 EDT, Hyaluronic acid, 200mg po bid Start Date: 08/27/18 Status: Ordered inositol 500 mg oral tablet Start: 08/27/18 11:14:00 EDT, Daily Start Date: 08/27/18 Status: Ordered inulin Start: 08/27/18 11:30:00 EDT, 1 tsp, PO Start Date: 08/27/18 Status: Ordered lansoprazole 30 mg oral delayed release capsule Start: 08/02/18 11:09:17 EDT, 1 cap, PO, Daily, Disp# 30 cap, Refills: 2, Pharmacy: [id number] Start Date: 08/02/18 Stop Date: 10/31/18 Status: Ordered Lecithin-Softgels Start: 08/27/18 11:30:00 EDT, 400 mg =, PO, bid Start Date: 08/27/18 Status: Ordered losartan 25 mg oral tablet Start: 08/01/18 10:25:00 EDT, 1 tab, PO, Daily, Disp# 30 tab, Refills: 3, Pharmacy: [id number] Start Date: 08/01/18 Stop Date: 11/29/18 Status: Ordered lutein Start: 08/27/18 11:31:00 EDT, 20 mg =, PO, Daily Start Date: 08/27/18 Status: Ordered magnesium amino acids chelate Start: 08/27/18 11:17:00 EDT, 250 mg =, PO, bid Start Date: 08/27/18 Status: Ordered Melatonin Start: 08/27/18 11:31:00 EDT, 10 mg =, PO, qhs Start Date: 08/27/18 Status: Ordered meloxicam 15 mg oral tablet Start: 08/27/18 10:54:00 EDT, 1 tab, PO, Daily Start Date: 08/27/18 Status: Ordered mesoglycan Start: 08/27/18 11:32:00 EDT, mesoglycan, 50mg bid Start Date: 08/27/18 Status: Ordered milk thistle Start: 08/27/18 11:33:00 EDT, 1,000 mg =, PO, bid Start Date: 08/27/18 Status: Ordered MSM Start: 08/27/18 11:33:00 EDT, MSM, 1000mg po bid Start Date: 08/27/18 Status: Ordered Mucinex Start: 08/27/18 10:57:00 EDT, 1,200 mg =, PO, Daily Start Date: 08/27/18 Status: Ordered NAC Start: 08/27/18 11:34:00 EDT, NAC, 600mg daily Start Date: 08/27/18 Status: Ordered Natrol SAMe Start: 08/27/18 11:36:00 EDT, 400 mg =, PO, Daily Start Date: 08/27/18 Status: Ordered pantothenic acid Start: 08/27/18 11:15:00 EDT, pantothenic acid, 500mg daily Start Date: 08/27/18 Status: Ordered potassium ACETATE Start: 08/27/18 11:18:00 EDT, 99mg bid Start Date: 08/27/18 Status: Ordered Probiotic Formula Start: 08/27/18 11:34:00 EDT, 1 cap, PO, bid Start Date: 08/27/18 Status: Ordered Proctofoam HC 1%-1% rectal foam Start: 08/24/18 15:24:00 EDT, See Instructions, Disp# 10 g, Refills: 1, MA tid 21 day, Pharmacy: [id number] Start Date: 08/24/18 Status: Ordered quercetin Start: 08/27/18 11:35:00 EDT, quercetin, 500mg 2 tablet in the am Start Date: 08/27/18 Status: Ordered selenium Start: 08/27/18 11:18:00 EDT, 200 mcg =, Daily Start Date: 08/27/18 Status: Ordered Sudafed Start: 08/27/18 10:57:00 EDT, 30 mg =, PO, Daily Start Date: 08/27/18 Status: Ordered vein supreme prickly divine Start: 08/27/18 11:37:00 EDT, vein supreme prickly divine, 500mg bid Start Date: 08/27/18 Status: Ordered Vitamin B Complex 100 Start: 08/27/18 11:00:00 EDT, PO, Daily Start Date: 08/27/18 Status: Ordered Vitamin B12 Start: 08/27/18 11:00:00 EDT, 500 mcg =, PO, Daily Start Date: 08/27/18 Status: Ordered Vitamin B6 50 mg oral tablet Start: 08/27/18 11:01:00 EDT, 1 tab, PO, Daily Start Date: 08/27/18 Status: Ordered Vitamin C Start: 08/27/18 11:02:00 EDT, 500 mg =, PO, Daily Start Date: 08/27/18 Status: Ordered Vitamin D3 Start: 08/27/18 11:13:00 EDT, 2,000 Int_Unit =, PO, Daily Start Date: 08/27/18 Status: Ordered vitamin E dl-alpha 400 intl units oral capsule Start: 08/27/18 11:13:00 EDT Start Date: 08/27/18 Status: Ordered ZyrTEC Start: 08/27/18 10:56:00 EDT, 10 mg =, PO, PRN: as needed for allergy symptoms Start Date: 08/27/18 Status: Ordered Problem List Condition Confirmation Course Effective Dates Status Health St atus Informant HTN (hypertension) Confirmed Active Procedures Procedure Date Related Diagnosis Body Site Status Colonoscopy 1 08/24/18 Completed 1Diverticulosis in the sigmoid colon. Non-bleeding internal hemorrhoids. The examination was otehrwise normal. No specimens collected. Social History Social History Type Response Smoking Status Never smoked cigaret jacquie Sex Female Patient Care team information Care Team Related Persons Name: RANDOLPH ENRIQUEZ Name: LEANNE GLOVER Address: home [address] [place] [address], [place] [id number]
--- NOTE | 2024-01-25 16:45 | Emergency Department Note ---
Impression & Plan Weakness, Acute UTI, Leukocytosis, Recent cerebrovascular accident ED Provider Note NAME: DEVIN ENRIQUEZ AGE: 88 SEX: F : 1935 ARRIVES VIA: Ambulance INFORMANT: [Patient][family] ED PROVIDER(S): [Grayson Moyer MD] CHIEF COMPLAINT: Dr. Referred HISTORY OF PRESENT ILLNESS: The patient is an 88-year-old female who was recently at our hospital for an embolic CVA. She is on Eliquis. She is currently at [facility]. Today, she was felt to be worse than when she left the hospital. She has worsened just about every day really, she was sent back for evaluation. The patient denies cough, shortness of breath or chest pain. No abdominal pain or urinary complaints. She does feel her right arm and right leg are weaker than when she left our hospital. The patient does have some right shoulder pain. She thinks she may have suffered an injury when they were helping her get situated at [facility]. PMHx/PSHx/Social Hx: See Below PHYSICAL EXAM: GENERAL: Patient is in no acute distress. HEENT: No acute trauma, normocephalic atraumatic, mucous membranes moist, no nasal congestion. NECK: No stridor, no adenopathy, no meningismus, trachea is midline. LUNGS: Clear to auscultation bilaterally, no wheeze, no rhonchi, breath sounds equal. HEART: Irregular rhythm, no obvious murmur, normal rate. Heart tones are distant. ABDOMEN: Soft, nontender, no peritonitis. Obese. EXTREMITIES: No cyanosis, full range of motion of all the joints without pain or difficulty. NEUROLOGIC: Oriented x 3. She does have weakness to the right lower extremity compared to the left. She has good right hand strength but poor strength at the shoulder. She has a lot of pain to move the right shoulder. No facial droop or speech slur. Excellent historian. SKIN: No jaundice, no diaphoresis. DIFFERENTIAL DIAGNOSIS: Sepsis, bacteremia, viral illness, pneumonia, UTI, electrolyte imbalance, intracranial bleeding, worsening CVA, right shoulder dislocation or injury, among others. EMERGENCY DEPARTMENT PROCEDURES: MEDICAL DECISION MAKING: There is a moderate leukocytosis, this would be consistent with infection. There was a normal hemoglobin and platelet count. No coagulopathy. No renal failure or significant electrolyte abnormality. Some very subtle liver enzyme elevations were seen however, the bilirubin was normal. Lactic acid level was not elevated making sepsis less likely. Patient appeared to be in a euthyroid state. ECG shows atrial fibrillation, no obvious acute ischemia. Cardiac enzyme testing x 1 was slightly elevated. This troponin elevation could be secondary to cardiac injury or just mismatch. Looking back at old records, she has had a mildly elevated troponin value in the past. Urinalysis does suggest infection, urine culture is pending. Respiratory bio fire was negative. Chest film does not show pneumonia or CHF. Right shoulder film does not show fracture or dislocation. Brain CT shows potential subtle bleeding into one of her newer stroke lesions. This was very minimal though. No mass effect. Repeat CT imaging was suggested to ensure stability. On exam, the patient was weak on the right side. She seemed to have pain with movement of the right shoulder. She had a very low-grade temperature. The patient was given IV saline for hydration. She received 1 L. She was given IV cefepime as antibiotic coverage. The patient is in need of a hospital stay. I suspect she is having worsening weakness because of her UTI. This infection has flared her right sided weakness and stroke deficits. I do think a hospital stay is warranted. Further workup is warranted. Further care is warranted. I did speak with the patient and her son, did speak with case management. The on-call hospitalist was consulted. Prior/Outside records/notes reviewed: Discharge summary note from 01/23/2024 discussing her presentation for CVA. ECG per my interpretation: Indication was possible stroke. The ECG shows atrial fibrillation with a rate of 92. There is a right bundle branch block. There is an old inferior infarct. There is no acute ST elevation, no PVCs. The QTc is 474. Continuous Cardiac Monitoring per my interpretation: An order was placed for continuous cardiac monitoring. The monitor shows a rate of 87 with atrial fibrillation. Imaging/x-ray results per my interpretation: Chest x-ray does not show mediastinal widening, pneumonia or pneumothorax. Right shoulder film shows arthritis, no fracture or dislocation. Chronic Medical/Social conditions affecting care: Advanced age, chronic anticoagulation. Care/Management discussed with: Case management, the on-call hospitalist. Level of care consideration(s): After review of the information above and other included data: --I believe the patient requires escalation of care to admission DISPOSITION: Admission Past Med/Surg History Medical History Obesity (BMI 30.0-34.9) per pt, reason for metformin Atrial fibrillation dx'd 12/2023. SVT (supraventricular tachycardia) Episode SVT during 04/2020 stress test (lasting approximately 50 seconds) converting to SR with carotid massage Stroke 07/2018 > no residual effects, plavix discontinued (hx GIB) Glaucoma History of GI bleed r/t plavix (since discontinued) History of anemia Uterine fibroid Osteoarthritis Hearing deficit Hypertension "borderline" Hyperlipidemia "borderline" Asthma uses PRN 3xwk on avg IBS (irritable bowel syndrome) resolved Surgical History History of arthroscopy of right knee History of nasal polypectomy History of adenoidectomy History of right knee joint replacement History of eye surgery History of total knee replacement Left TKA (04/03/21): SAB at L3 (x1 attempt) + PNB at [facility] History of gynecologic surgery Anterior cystocele repair History of surgical procedure on eye proper using laser R/L (for glaucoma) History of cataract surgery R/L History of colonoscopy Sigmoidoscopy exam History of herniorrhaphy History of tooth extraction History of tonsillectomy Family History Family/Other Family history of diabetes mellitus Father Prostate cancer Brother Prostate cancer Other No family history of adverse response to anesthesia Denies family history of Ovarian cancer Myocardial infarction Breast cancer Colorectal cancer Social History Smoking Status: Never smoker Second Hand Exposure: Yes ( until 1989); Do You Dip or Chew Tobacco: No; Hx Alcohol Use: Yes Alcohol type: wine Hx Substance Use: No Preferred Language: Chinese Communication Ability: Effective 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 Beliefs That Will Affect Care: None marital status: / Current Living Situation: Alone Feels Safe at Home: Yes Assistive Devices: Cane and Walker Allergies Allergies Allergy/AdvReac Type Severity Reaction Status Date / Time nickel Allergy Intermediate Rash Verified 01/25/24 18:14 Home Meds Home Medications Medication Instructions Recorded Confirmed guaifenesin 1,200 mg tablet, 1,200 mg PO QAM 08/20/18 01/25/24 extended release 12 hr (Mucinex) calcium carbonate 500 mg-vitamin 1 tab PO QAM 08/21/18 01/25/24 D3 5 mcg (200 unit) tablet (Calcium 500 + D) alendronate 70 mg tablet (Fosamax) 70 mg PO WK 01/13/24 01/25/24 azelastine 137 mcg (0.1 %) nasal 1 spray intranasal BID 01/13/24 01/25/24 spray aerosol umeclidinium 62.5 mcg/actuation 1 inh inhalation QAM 01/13/24 01/25/24 blister powder for inhalation (Incruse Ellipta) acetaminophen 325 mg tablet 650 mg PO Q4H PRN Pain 01/25/24 01/25/24 (Tylenol) amoxicillin 500 mg tablet 2,000 mg PO DIRECTED PRN PRIOR 01/25/24 01/25/24 TO DENTAL PROCEDURES bisacodyl 10 mg rectal suppository 10 mg GA DAILY PRN Constipation 01/25/24 01/25/24 docusate sodium 100 mg capsule 100 mg PO BID 01/25/24 01/25/24 fluticasone furoate 100 1 inh inhalation DAILY 01/25/24 01/25/24 mcg-vilanterol 25 mcg/dose inhalation powder (Breo Ellipta) loratadine 10 mg tablet (Claritin) 10 mg PO DAILY 01/25/24 01/25/24 magnesium hydroxide 400 mg/5 mL 30 ml PO DAILY PRN Constipation 01/25/24 01/25/24 oral suspension (Milk of Magnesia) magnesium oxide 200 mg PO BID 01/25/24 01/25/24 ondansetron HCl 4 mg tablet 4 mg PO Q4H PRN NAUSEA/VOMITING 01/25/24 01/25/24 polyethylene glycol 3350 17 17 g PO QDL PRN Constipation 01/25/24 01/25/24 gram/dose oral powder (Miralax) pravastatin 40 mg tablet 40 mg PO QDD 01/25/24 01/25/24 psyllium 1 packet PO HS 01/25/24 01/25/24 sennosides 8.6 mg-docusate sodium 1 tab-cap PO QDL PRN Constipation 01/25/24 01/25/24 50 mg tablet (Senokot-S) sodium phosphates 19 gram-7 118 ml GA DAILY PRN Constipation 01/25/24 01/25/24 gram/118 mL enema (Fleet Enema) Previous Rx's Medication Instructions Recorded montelukast 10 mg tablet 10 mg PO QAM #90 tabs 08/06/23 (Singulair) apixaban 5 mg tablet (Eliquis) 5 mg PO BID #180 tabs 12/17/23 albuterol sulfate 90 mcg/actuation 2 puff inhalation QID PRN 12/25/23 aerosol inhaler (Ventolin HFA) Shortness Of Breath #8.5 grams alprazolam 0.25 mg tablet 0.25 mg PO HS PRN insomnia #45 tabs 01/01/24 melatonin 3 mg tablet 3 mg PO HS PRN sleep #30 tabs 01/23/24 Results & Data (ED) Vital Signs Vital Signs - 24 hr 01/25/24 15:37 01/25/24 16:29 01/25/24 17:53 Temperature 37.6 C H Temperature Source Oral Pulse Rate 93 H 87 94 H Pulse Rate from SpO2 Sensor 93 H Pulse Rhythm Regular Pulse Strength Normal Respiratory Rate 15 23 Respiratory Effort / Characteristics Non-Labored Spontaneous Respiratory Depth Normal Respiratory Pattern Regular Blood Pressure 149/98 H 133/86 Blood Pressure Mean 115 101 Blood Pressure Position Lying Pulse Oximetry 96 97 Oxygen Delivery Method Room Air Room Air Sepsis Recent Fever Within 48 Hours No Sepsis New/Unexplained Change in Mental Status N/A Sepsis Action Taken by Nursing No Action Required 01/25/24 18:14 01/25/24 18:30 Temperature Temperature Source Pulse Rate 90 89 Pulse Rate from SpO2 Sensor 100 H Pulse Rhythm Pulse Strength Respiratory Rate 21 24 Respiratory Effort / Characteristics Respiratory Depth Respiratory Pattern Blood Pressure 165/87 H 166/111 H Blood Pressure Mean 113 129 Blood Pressure Position Pulse Oximetry 98 96 Oxygen Delivery Method Room Air Room Air Sepsis Recent Fever Within 48 Hours Sepsis New/Unexplained Change in Mental Status Sepsis Action Taken by Longterm Medications Current Medication List: was personally reviewed by me Laboratory Data Attestation: I reviewed the patient's lab results. 01/25/24 17:04 01/25/24 17:04 Lab Results 01/25/24 01/25/24 Range/Units 17:04 18:05 WBC 14.28 H (4.8-10.8) K/ul RBC 4.19 L (4.20-5.40) M/uL Hgb 13.2 (12.0-16.0) g/dl Hct 39.7 (37.0-47.0) % MCV 94.7 (80.0-100.0) fL MCH 31.5 (25.0-34.0) pg MCHC 33.2 (32.0-36.0) g/dL RDW Std Deviation 43.6 (36.4-46.3) fL RDW Coeff of [place] 12.7 (11.5-14.5) % Plt Count 233 (130-400) K/uL MPV 11.3 (9.4-12.4) fL Immature Gran % (Auto) 0.5 % Neut % (Auto) 74.0 % Lymph % (Auto) 14.0 % [place]ley % (Auto) 8.1 % Eos % (Auto) 3.0 % Baso % (Auto) 0.4 % Neut # (Auto) 10.56 H (1.40-6.50) K/uL Lymph # (Auto) 2.00 (1.20-3.40) K/uL Donley # (Auto) 1.16 H (0.11-0.59) K/uL Eos # (Auto) 0.43 (0.00-0.50) K/uL Baso # (Auto) 0.06 (0.00-0.20) K/uL Immature Gran # (Auto) 0.07 (0.01-0.20) K/uL PT 12.0 (9.0-12.0) Seconds INR 1.1 (0.9-1.1) APTT 25 (21-31) Seconds PTT Ratio 0.9 Sodium 139 (136-145) mmol/L Potassium 4.4 (3.5-5.1) mmol/L Chloride 106 (98-107) mmol/L Carbon Dioxide 26 (21-32) mmol/L Anion Gap 7 (3-11) BUN 20 (6-23) mg/dl Creatinine 0.61 (0.6-1.2) mg/dl Est Cr Clr Drug Dosing 61.7 ml/min Est GFR ( Amer) 94.5 ml/min Est GFR (Non-Af Amer) 81.5 ml/min BUN/Creatinine Ratio 32.8 H (10-20) Glucose 121 H (70-99(Fasting)) mg/dl Lactate 1.5 (0.4-2.0) mmol/L Calcium 9.5 (8.6-10.3) mg/dl Magnesium 2.2 (1.7-2.4) mg/dl Total Bilirubin 0.6 (0.2-1.0) mg/dl AST 48 H (13-39) U/L ALT 42 (7-52) U/L Alkaline Phosphatase 122 H (34-104) U/L Troponin I High Sens 92.0 H* (0-14) pg/ml Total Protein 6.7 (6.0-8.3) gm/dl Albumin 3.4 (3.4-5.0) gm/dl Globulin 3.3 (2.5-4.0) gm/dl Albumin/Globulin Ratio 1.0 (0.9-2) TSH 2.144 (0.300-4.500) uIu/ml Urine Color Yellow Urine Appearance Clear (Clear) Urine pH 5.5 (4.5-7.5) Ur Specific [place] 1.012 (1.000-1.030) Urine Protein Negative (Negative) Urine Glucose (UA) Negative (Negative) Urine Ketones Negative (Negative) Urine Blood 2+ H (Negative) Urine Nitrite Positive A (Negative) Urine Bilirubin Negative (Negative) Urine Urobilinogen Negative (Negative) Ur Leukocyte Esterase Trace H (Negative) Urine WBC (Auto) 1-5 (0-5) /hpf Urine RBC (Auto) 5-10 H (0-4) /hpf U Hyaline Cast (Auto) 1-5 (0-5) /lpf U Epithel Cells (Auto) 5-10 H (0-5) /lpf Urine Bacteria (Auto) 4+ H (Negative) Adenovirus (PCR) Not Detected (NotDetected) B. pertussis DNA (PCR) Not Detected (NotDetected) B.parapertussis DNA PCR Not Detected (NotDetected) C. pneumoniae DNA (PCR) Not Detected (NotDetected) Coronavirus OC43 (PCR) Not Detected (NotDetected) Coronavirus HKU1 (PCR) Not Detected (NotDetected) Coronavirus 229E (PCR) Not Detected (NotDetected) SARS-CoV-2 (PCR) Not Detected (NotDetected) Coronavirus NL63 (PCR) Not Detected (NotDetected) Human Metapneumovir PCR Not Detected (NotDetected) Influenza Type A (PCR) Not Detected (NotDetected) Influenza Type B (PCR) Not Detected (NotDetected) M. pneumoniae (PCR) Not Detected (NotDetected) Parainfluenza 1 (PCR) Not Detected (NotDetected) Parainfluenza 2 (PCR) Not Detected (NotDetected) Parainfluenza 3 (PCR) Not Detected (NotDetected) Parainfluenza 4 (PCR) Not Detected (NotDetected) RSV (PCR) Not Detected (NotDetected) Entero/Rhino (PCR) Not Detected (NotDetected) Administered Medications Discontinued Medications Sodium Chloride (Nss) 500 mls @ 999 mls/hr IV .Q31M OLIVER Stop: 01/25/24 16:45 Last Admin: 01/25/24 17:53 Dose: 999 mls/hr Documented By: ARIN Cefepime HCl (Maxipime) 2,000 mg in 20 mls @ 5 mls/min IV NOW STA; Protocol Stop: 01/25/24 16:17 Last Admin: 01/25/24 17:53 Dose: 5 mls/min Documented By: ARIN Imaging Data Radiologist's Impression: Chest X-Ray 01/25/24 16:12 XR chest 1V portable HISTORY: weakness COMPARISON: Chest 11/18/2022. FINDINGS: No pneumothorax. No pleural effusions. The heart remains enlarged. There is a tortuous thoracic aorta again noted. Left basilar linear densities favor subsegmental atelectasis. Otherwise, no focal lung consolidations to suggest a pneumonia. No evidence for pulmonary edema. Degenerative changes within the shoulders. IMPRESSION: Mild cardiomegaly. Otherwise, no acute process within the chest. ACT 112: Negative or not required by law. Electronically signed by: Meng Evans M.D. 01/25/2024 5:[address] 01/25/24 16:[address] DOSE: 703.85 mGy.cm HISTORY: Progressive gait and balance. recent stroke, worse TECHNIQUE: Multiaxial CT images of the head were performed without the use of intravenous contrast. Automated exposure control was utilized for this study. A dose lowering technique was utilized adhering to the principles of ALARA. Comparison: Brain MRI 01/21/2024. Findings: The paranasal sinuses and mastoid air cells are clear. The calvarium and skull base are intact. White matter hypodensity is nonspecific but suggestive of microvascular ischemic change. The ventricles and sulci demonstrate mild age-related involutional changes. Old left basal ganglia lacunar infarcts again noted. The punctate acute infarcts within the left coronary radiata on the prior brain MRI are not well visualized by this modality due to their small size. No new/large territory infarct identified. There is a single punctate density within the left frontal lobe on image 22 which is new from the prior study. This is indeterminate. A punctate focus of early hemorrhagic transformation is considered less likely but not entirely excluded. Impression: 1. The punctate acute infarcts within the left coronary radiata on the prior brain MRI are not well visualized by this modality due to their small size. No new/large territory infarct identified. 2. There is a new punctate hyperdense focus within the left frontal lobe which may correspond to the prior infarct at this location. Therefore, this raises the possibility of early hemorrhagic transformation. A 6 to [address] follow- up is recommended to ensure stability. ACT 112: Negative or not required by law. Electronically signed by: Meng Evans M.D. 01/25/2024 4:55 PM Shoulder X-Ray 01/25/24 16:24 RIGHT SHOULDER 3 VIEWS HISTORY: Right shoulder pain, poss injury COMPARISON: None. FINDINGS: There is no fracture or dislocation. Soft tissues are unremarkable. No radiopaque foreign bodies. The right clavicle is intact. There is moderate to severe osteoarthritis at the glenohumeral joint. IMPRESSION: 1. No fracture or dislocation within the right shoulder. 2. Moderate to severe osteoarthritis. ACT 112: Negative or not required by law. Electronically signed by: Meng Evans M.D. 01/25/2024 5:04 PM Discharge Plan Visit Data Chief Complaint: Referred by Doctor Stated Complaint: REFERRED BY DR. LATANYA VILLANUEVA ED Provider: Grayson Moyer Discharge Problem: Weakness, Acute UTI, Leukocytosis, Recent cerebrovascular accident Patient Disposition: Admitted As Inpatient Condition: Fair Forms Stand Alone Forms: Oatmeal Prescriptions Prescriptions: No Action montelukast [Singulair] 10 mg tablet 10 mg PO QAM Qty: 90 1RF albuterol sulfate [Ventolin HFA] 90 mcg/actuation HFA aerosol inhaler 2 puff INHALATION QID PRN (Reason: Shortness Of Breath) Qty: 8.5 5RF Rx Instructions: CFC FREE alprazolam 0.25 mg tablet 0.25 mg PO HS PRN (Reason: insomnia) Qty: 45 0RF Rx Instructions: Take 1- 1.5 tabs QHS prn insomnia Ongoing therapy Supervising physician Nae Borrego MD KELSEY [id number] Eliquis 5 mg tablet 5 mg PO BID Qty: 180 2RF guaifenesin [Mucinex] 1,200 mg Tablet Extended Release 12hr 1,200 mg PO QAM calcium carbonate-vitamin D3 [Calcium 500 + D] 500 mg(1,250mg) -200 unit Tablet 1 tab PO QAM azelastine 137 mcg (0.1 %) Aerosol,[place] 1 spray INTRANASAL BID Rx Instructions: administer into each nostril alendronate [Fosamax] 70 mg tablet 70 mg PO WK Rx Instructions: SATURDAYS Incruse Ellipta 62.5 mcg/actuation blister with device 1 inh inhalation QAM melatonin 3 mg Tablet 3 mg PO HS PRN (Reason: sleep) Qty: 30 0RF acetaminophen [Tylenol] 325 mg Tablet 650 mg PO Q4H PRN (Reason: Pain) ondansetron HCl [Zofran] 4 mg Tablet 4 mg PO Q4H PRN (Reason: NAUSEA/VOMITING) sennosides-docusate sodium [Senokot-S] 8.6-50 mg Tablet 1 tab-cap PO QDL PRN (Reason: Constipation) Metamucil Packet 1 packet PO HS Rx Instructions: mix into at least 8 oz of water or juice before administering magnesium hydroxide [Milk of Magnesia] 400 mg/5 mL Suspension 30 ml PO DAILY PRN (Reason: Constipation) bisacodyl 10 mg Suppository 10 mg GA DAILY PRN (Reason: Constipation) Fleet Enema 19-7 gram/118 mL Enema 118 ml GA DAILY PRN (Reason: Constipation) docusate sodium 100 mg Capsule 100 mg PO BID polyethylene glycol 3350 [Miralax] 17 gram/dose Powder 17 g PO QDL PRN (Reason: Constipation) loratadine [Claritin] 10 mg Tablet 10 mg PO DAILY fluticasone furoate-vilanterol [Breo Ellipta] 100-25 mcg/dose Blister With Device 1 inh INHALATION DAILY magnesium oxide 400 mg magnesium Tablet 200 mg PO BID pravastatin 40 mg tablet 40 mg PO QDD amoxicillin 500 mg tablet 2,000 mg PO DIRECTED PRN (Reason: PRIOR TO DENTAL PROCEDURES) Rx Instructions: 4 tabs 1 hour prior to procedure Referrals Referrals: Nae Borrego MD [Primary Care Provider] - Discharge Problem: Leukocytosis Qualifiers: Leukocytosis type: unspecified Qualified Code(s): D72.829 - Elevated white blood cell count, unspecified
--- NOTE | 2024-01-25 16:57 | CT Scan Report ---
HEAD CT NONCONTRAST CT DOSE: 703.85 mGy.cm HISTORY: Progressive gait and balance. recent stroke, worse TECHNIQUE: Multiaxial CT images of the head were performed without the use of intravenous contrast. A utomated exposure control was utilized for this study. A dose lowering technique was utilized adheri ng to the principles of ALARA. Comparison: Brain MRI 01/21/2024. Findings: The paranasal sinuses and mastoid air cells are clear. The calvarium and skull base are int act. White matter hypodensity is nonspecific but suggestive of microvascular ischemic change. The samantha tricles and sulci demonstrate mild age-related involutional changes. Old left basal ganglia lacunar i nfarcts again noted. The punctate acute infarcts within the left coronary radiata on the prior brain MRI are not well visualized by this modality due to their small size. No new/large territory infarct identified. There is a single punctate density within the left frontal lobe on image 22 which is new from the prior study. This is indeterminate. A punctate focus of early hemorrhagic transformation is considered less likely but not entirely excluded. Impression: 1. The punctate acute infarcts within the left coronary radiata on the prior brain MRI are not well v isualized by this modality due to their small size. No new/large territory infarct identified. 2. There is a new punctate hyperdense focus within the left frontal lobe which may correspond to the prior infarct at this location. Therefore, this raises the possibility of early hemorrhagic transform ation. A 6 to [address] follow-up is recommended to ensure stability. ACT 112: Negative or not required by law. Electronically signed by: Meng Evans M.D. 01/25/2024 4:55 PM
--- NOTE | 2024-01-25 17:04 | XRay Report ---
XR chest 1V portable HISTORY: weakness COMPARISON: Chest 11/18/2022. FINDINGS: No pneumothorax. No pleural effusions. The heart remains enlarged. There is a tortuous thor acic aorta again noted. Left basilar linear densities favor subsegmental atelectasis. Otherwise, no f ocal lung consolidations to suggest a pneumonia. No evidence for pulmonary edema. Degenerative change s within the shoulders. IMPRESSION: Mild cardiomegaly. Otherwise, no acute process within the chest. ACT 112: Negative or not required by law. Electronically signed by: Meng Evans M.D. 01/25/2024 5:03 PM
--- NOTE | 2024-01-25 17:05 | XRay Report ---
RIGHT SHOULDER 3 VIEWS HISTORY: Right shoulder pain, poss injury COMPARISON: None. FINDINGS: There is no fracture or dislocation. Soft tissues are unremarkable. No radiopaque foreign b odies. The right clavicle is intact. There is moderate to severe osteoarthritis at the glenohumeral j oint. IMPRESSION: 1. No fracture or dislocation within the right shoulder. 2. Moderate to severe osteoarthritis. ACT 112: Negative or not required by law. Electronically signed by: Meng Evans M.D. 01/25/2024 5:04 PM
[2024-01-25 17:20] LABS: Basophils # (auto) 0.06 K/uL (0.00-0.20); Basophils % (auto) 0.4 %; Eosinophils # (auto) 0.43 K/uL (0.00-0.50); Hematocrit (blood only) 39.7 % (37.0-47.0); Hemoglobin 13.2 g/dl (12.0-16.0); Immature Granulocytes # (auto) 0.07 K/uL (0.01-0.20); Immature Granulocytes % (auto) 0.5 %; Mean Corpuscular Hemoglobin 31.5 pg (25.0-34.0); Mean Corpuscular Hgb Conc 33.2 g/dL (32.0-36.0); Mean Corpuscular Volume 94.7 fL (80.0-100.0); Mean Platelet Volume 11.3 fL (9.4-12.4); Monocytes # (auto) 1.16 K/uL (0.11-0.59); Monocytes % (auto) 8.1 %; Neutrophils # (auto) 10.56 K/uL (1.40-6.50); Platelet Count 233 K/uL (130-400); RDW Coefficient of Variation 12.7 % (11.5-14.5); RDW Standard Deviation 43.6 fL (36.4-46.3); Red Blood Count 4.19 M/uL (4.20-5.40); White Blood Count 14.28 K/ul (4.8-10.8)
[2024-01-25 17:36] LABS: Albumin Level 3.4 gm/dl (3.4-5.0); BUN Creatinine Ratio 32.8 (10-20); Bilirubin,Total 0.6 mg/dl (0.2-1.0); Calcium 9.5 mg/dl (8.6-10.3); Creatinine Clr Calc Pharmacy 61.7 ml/min; Est GFR (African American) 94.5 ml/min; Est GFR (Non-African American) 81.5 ml/min; Globulin 3.3 gm/dl (2.5-4.0); Magnesium 2.2 mg/dl (1.7-2.4); Potassium 4.4 mmol/L (3.5-5.1); Total Protein 6.7 gm/dl (6.0-8.3)
[2024-01-25 17:51] LABS: INR 1.1 (0.9-1.1); Partial Thromboplastin Ratio 0.9; Partial Thromboplastin Time 25 Seconds (21-31)
[2024-01-25 17:52] LABS: Thyroid Stimulating Hormone 2.144 uIu/ml (0.300-4.500)
[2024-01-25] MEDS: CEFEPIME 2,000 MG/20 ML VIAL IV STA (17:53)
[2024-01-25] MEDS: SODIUM CHLORIDE 0.9% 500 ML IV SCH (17:53)
[2024-01-25 18:22] LABS: Appearance Urine Clear (Clear); Bacteria Urine Automated 4+ (Negative); Bilirubin Urine Negative (Negative); Blood Urine 2+ (Negative); Color Urine Yellow; Glucose Urine UA Negative (Negative); Ketones Urine Negative (Negative); Leukocyte Esterase Urine Trace (Negative); Nitrite Urine Positive (Negative); Protein Urine Negative (Negative); Specific Gravity Urine 1.012 (1.000-1.030); Urobilinogen Urine Negative (Negative); pH Urine 5.5 (4.5-7.5)
[2024-01-25 19:10] LABS: Adenovirus PCR Not Detected (NotDetected); Bordetella parapertussis PCR Not Detected (NotDetected); Bordetella pertussis PCR Not Detected (NotDetected); Chlamydia pneumoniae PCR Not Detected (NotDetected); Coronavirus 229E PCR Not Detected (NotDetected); Coronavirus CoV-2 (COVID19)PCR Not Detected (NotDetected); Coronavirus HKU1 PCR Not Detected (NotDetected); Coronavirus NL63 PCR Not Detected (NotDetected); Coronavirus OC43PCR Not Detected (NotDetected); Human Metapneumovirus PCR Not Detected (NotDetected); Influenza A PCR Not Detected (NotDetected); Influenza B PCR Not Detected (NotDetected); Mycoplasma pneumoniae PCR Not Detected (NotDetected); Parainfluenza Virus 1 PCR Not Detected (NotDetected); Parainfluenza Virus 2 PCR Not Detected (NotDetected); Parainfluenza Virus 3 PCR Not Detected (NotDetected); Parainfluenza Virus 4 PCR Not Detected (NotDetected); Respiratory Syncytial VirusPCR Not Detected (NotDetected); Rhinovirus/Enterovirus PCR Not Detected (NotDetected)
[2024-01-25 20:18] LABS: Troponin I High Sensitivity 42.1 pg/ml (0-14)
--- NOTE | 2024-01-25 20:20 | History & Physical Report ---
Date of Service January 25, 2024 Assessment & Plan (1) Recent cerebrovascular accident: Plan: 88yo female with history of atrial fibrillation on Eliquis anticoagulation, HTN and HLP returning to [facility] with worsening weakness in her RUE and RLE. Patient was recently admitted to [facility] from 01/21/24 - 01/23/24 after presenting with imbalance and ambulatory dysfunction. 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 No hemorrhagic transformation noted. Patient was continued on her Eliquis and ultimately discharged to [facility] on 01/23/24 for continued rehabilitation. She returns today with worsening strength and balance. CT of the head without new or large territory infarct but notes a new punctate hyperdense focus in the left frontal lobe which may correspond to the prior infarct at this location - raises the possibility of early hemorrhagic transformation. Patient also with UTI. Her strength in the RUE and RLE is decreased when compared to prior admission. Suspect this is secondary to stroke recrudescence in the setting of acute UTI rather than hemorrhagic conversion or new ischemic event -Admit to medical with telemetry -NIHSS q shift, Neuro checks for stroke evaluation per protocol -Repeat non-contrast CT of the head / at 04:00 - appx 12 hours following initial study. Evaluate for stability of punctate focus previously noted -Will hold Eliquis for now until hemorrhagic conversion is ruled out -Continue Atorvastatin 40mg po daily. CK and LFTs checked and are WNL. -PT/OT evaluation appreciated (2) Acute UTI: Plan: Patient with acute UTI. Elevated HR on admission - variable in setting of AF with rate of 80's - 110's. Leukocytosis with WBC=14.28. UA appears grossly infected. Prior cultures positive for de la cruz-sensitive E.coli. Technically meets sepsis criteria, present on admission. Patient has received 1L NSS in the ER thus far. Will administer additional liter. Cautious fluid administration given patient's advanced age. -Follow cultures sent from the ER -Ceftriaxone 2gm IV daily -NSS at 125mL/hr x 1L (3) Elevated troponin I level: Plan: Noted. Initial troponin= 92 with repeat --> 42. Patient denies chest pain (4) Atrial fibrillation: Plan: Chronic. Patient on Apixaban anticoagulation. -Holding Apixaban for now pending repeat head CT to rule out hemorrhagic conversion -HR currently 87bpm (5) Constipation: Plan: Patient reports ongoing constipation. No abdominal pain at present -Continue Psyllium and mild of magnesium -Continue Colace BID -Miralax, enema, Senokot, Dulcolax AR PRN Insomnia -Melatonin 9mg po qHS PRN -Alprazolam 0.5mg po qHS PRN Shoulder pain/back pain -Lidoderm patch -Voltaren gel PRN Head bump -Warm compresses History of Present Illness Chief Complaint: progressive right sided weakness Primary Care Provider: Nae Borrego MD Hiwot Davis is an 88yo female with history of atrial fibrillation on Eliquis anticoagulation, HTN, HLP presenting with worsening RUE and RLE weakness and decreased mobility. Patient presented to [facility] on 01/21/24 with report of gait instability. She was found to have an acute ischemic stroke thought to be embolic in appearance. She was ultimately discharged to [facility] on 01/23/24. She was continued on her Eliquis anticoagulation. Pravastatin was initiated during her hospital stay. Patient returns with concern for continued decrease in function - specifically weakness of the RUE and RLE. She reports that she has difficulty with ambulation and transfers. She reports being constipated and has been unable to get up and use the commode due to decreased mobility. Additionally she reports some subjective fevers and chills as well as mild dysuria and some generalized weakness. She reports constipation as well and is unsure if she had been getting her bowel medication during her hospital stay. Last BM was 2 days ago. No complaint of chest pain or palpitations. Patient with stable baseline SOB which is unchanged today. In the ER she is afebrile, atrial fibrillation with HR ranging 89-107, adequate oxygenation on room air ER Course: NSS x 1L Cefepime 2gm Allergies Allergy/AdvReac Type Severity Reaction Status Date / Time nickel Allergy Intermediate Rash Verified 01/25/24 18:14 Home Medications Medication Instructions Recorded Confirmed Type guaifenesin 1,200 mg tablet, 1,200 mg PO QAM 08/20/18 01/25/24 History extended release 12 hr (Mucinex) calcium carbonate 500 mg-vitamin 1 tab PO QAM 08/21/18 01/25/24 History D3 5 mcg (200 unit) tablet (Calcium 500 + D) montelukast 10 mg tablet 10 mg PO QAM #90 tabs 08/06/23 01/25/24 Rx (Singulair) apixaban 5 mg tablet (Eliquis) 5 mg PO BID #180 tabs 12/17/23 01/25/24 Rx albuterol sulfate 90 mcg/actuation 2 puff inhalation QID PRN 12/25/23 01/25/24 Rx aerosol inhaler (Ventolin HFA) Shortness Of Breath #8.5 grams alprazolam 0.25 mg tablet 0.25 mg PO HS PRN insomnia #45 tabs 01/01/24 01/25/24 Rx alendronate 70 mg tablet (Fosamax) 70 mg PO WK 01/13/24 01/25/24 History azelastine 137 mcg (0.1 %) nasal 1 spray intranasal BID 01/13/24 01/25/24 History spray aerosol umeclidinium 62.5 mcg/actuation 1 inh inhalation QAM 01/13/24 01/25/24 History blister powder for inhalation (Incruse Ellipta) melatonin 3 mg tablet 3 mg PO HS PRN sleep #30 tabs 01/23/24 01/25/24 Rx acetaminophen 325 mg tablet 650 mg PO Q4H PRN Pain 01/25/24 01/25/24 History (Tylenol) amoxicillin 500 mg tablet 2,000 mg PO DIRECTED PRN PRIOR 01/25/24 01/25/24 History TO DENTAL PROCEDURES bisacodyl 10 mg rectal suppository 10 mg AR DAILY PRN Constipation 01/25/24 01/25/24 History docusate sodium 100 mg capsule 100 mg PO BID 01/25/24 01/25/24 History fluticasone furoate 100 1 inh inhalation DAILY 01/25/24 01/25/24 History mcg-vilanterol 25 mcg/dose inhalation powder (Breo Ellipta) loratadine 10 mg tablet (Claritin) 10 mg PO DAILY 01/25/24 01/25/24 History magnesium hydroxide 400 mg/5 mL 30 ml PO DAILY PRN Constipation 01/25/24 01/25/24 History oral suspension (Milk of Magnesia) magnesium oxide 200 mg PO BID 01/25/24 01/25/24 History ondansetron HCl 4 mg tablet 4 mg PO Q4H PRN NAUSEA/VOMITING 01/25/24 01/25/24 History polyethylene glycol 3350 17 17 g PO QDL PRN Constipation 01/25/24 01/25/24 History gram/dose oral powder (Miralax) pravastatin 40 mg tablet 40 mg PO QDD 01/25/24 01/25/24 History psyllium 1 packet PO HS 01/25/24 01/25/24 History sennosides 8.6 mg-docusate sodium 1 tab-cap PO QDL PRN Constipation 01/25/24 01/25/24 History 50 mg tablet (Senokot-S) sodium phosphates 19 gram-7 118 ml AR DAILY PRN Constipation 01/25/24 01/25/24 History gram/118 mL enema (Fleet Enema) Past Med/Surg History Medical History Obesity (BMI 30.0-34.9) per pt, reason for metformin Atrial fibrillation dx'd 12/2023. SVT (supraventricular tachycardia) Episode SVT during 04/2020 stress test (lasting approximately 50 seconds) converting to SR with carotid massage Stroke 07/2018 > no residual effects, plavix discontinued (hx GIB) Glaucoma History of GI bleed r/t plavix (since discontinued) History of anemia Uterine fibroid Osteoarthritis Hearing deficit Hypertension "borderline" Hyperlipidemia "borderline" Asthma uses PRN 3xwk on avg IBS (irritable bowel syndrome) resolved Surgical History History of arthroscopy of right knee History of nasal polypectomy History of adenoidectomy History of right knee joint replacement History of eye surgery History of total knee replacement Left TKA (04/03/21): SAB at L3 (x1 attempt) + PNB at [facility] History of gynecologic surgery Anterior cystocele repair History of surgical procedure on eye proper using laser R/L (for glaucoma) History of cataract surgery R/L History of colonoscopy Sigmoidoscopy exam History of herniorrhaphy History of tooth extraction History of tonsillectomy Family History Family/Other Family history of diabetes mellitus Father Prostate cancer Brother Prostate cancer Other No family history of adverse response to anesthesia Denies family history of Ovarian cancer Myocardial infarction Breast cancer Colorectal cancer Social History Smoking Status: Never smoker Second Hand Exposure: Yes ( until 1989); Do You Dip or Chew Tobacco: No; Hx Alcohol Use: Yes Alcohol type: wine Hx Substance Use: No Preferred Language: Urdu Communication Ability: Effective Affirmative Action Officer Required: No Beliefs That Will Affect Care: None marital status: / Current Living Situation: Alone Feels Safe at Home: Yes Assistive Devices: Cane and Walker Review of Systems Review of Systems: All systems reviewed & are unremarkable except as noted in HPI & below Physical Exam Physical Exam: General: elderly female patient resting comfortably, NAD, non-toxic in appearance, AA&O x 4 Skin: warm, dry, intact, no rashes or lesions, some bruising on forearm. Patient with small pustule present on right forehead in hairline, no drainage/bleeding/cellulitis. Does not appear like a bite HEENT: NC/AT, PERRL, EOMI, anicteric sclera, conjunctiva without injection, external ear normal to inspection and nontender, nares patent, moist mucus membranes, dentition intact, no oropharyngeal lesions, neck supple, trachea midline, no LAD, no thyromegaly, no JVD Heart: +S1/S2, irregularly irregular, no m/r/g Lungs: equal air entry bilaterally, no rales/rhonchi/wheezes Abd: +BS, soft, NT/ND, no masses/organomegaly/ascites Ext: warm, 2+ pulses in UE/LE bilaterally, no clubbing/cyanosis or edema Neuro: AA&O x 4, pleasant and cooperative, answers questions appropriately, no facial droop, CN II - XII grossly intact with poor hearing bilaterally (baseline), sensation to light touch intact bilaterally, MS diminished in RLE 4/5, LLE 5/5. MS diminished in RUE 4/5, LUE 5/5. Patient with a lot of pain at the right shoulder Results & Data Results & Data Vital Signs (Past 12 Hours) Vital Signs Temp Pulse Resp BP Pulse Ox O2 Del Method 01/25/24 18:30 89 24 166/111 H 96 Room Air 01/25/24 18:14 90 21 165/87 H 98 Room Air 01/25/24 17:53 94 H 23 133/86 97 Room Air 01/25/24 16:29 87 01/25/24 15:37 37.6 C H 93 H 15 149/98 H 96 Room Air Laboratory Results Laboratory Results WBC 14.28 K/ul (4.8-10.8) H 01/25/24 17:04 RBC 4.19 M/uL (4.20-5.40) L 01/25/24 17:04 Hgb 13.2 g/dl (12.0-16.0) 01/25/24 17:04 Hct 39.7 % (37.0-47.0) 01/25/24 17:04 MCV 94.7 fL (80.0-100.0) 01/25/24 17:04 MCH 31.5 pg (25.0-34.0) 01/25/24 17:04 MCHC 33.2 g/dL (32.0-36.0) 01/25/24 17:04 RDW Std Deviation 43.6 fL (36.4-46.3) 01/25/24 17:04 RDW Coeff of Carrol 12.7 % (11.5-14.5) 01/25/24 17:04 Plt Count 233 K/uL (130-400) 01/25/24 17:04 MPV 11.3 fL (9.4-12.4) 01/25/24 17:04 Immature Gran % (Auto) 0.5 % 01/25/24 17:04 Neut % (Auto) 74.0 % 01/25/24 17:04 Lymph % (Auto) 14.0 % 01/25/24 17:04 [place] % (Auto) 8.1 % 01/25/24 17:04 Eos % (Auto) 3.0 % 01/25/24 17:04 Baso % (Auto) 0.4 % 01/25/24 17:04 Neut # (Auto) 10.56 K/uL (1.40-6.50) H 01/25/24 17:04 Lymph # (Auto) 2.00 K/uL (1.20-3.40) 01/25/24 17:04 [place] # (Auto) 1.16 K/uL (0.11-0.59) H 01/25/24 17:04 Eos # (Auto) 0.43 K/uL (0.00-0.50) 01/25/24 17:04 Baso # (Auto) 0.06 K/uL (0.00-0.20) 01/25/24 17:04 Immature Gran # (Auto) 0.07 K/uL (0.01-0.20) 01/25/24 17:04 PT 12.0 Seconds (9.0-12.0) 01/25/24 17:04 INR 1.1 (0.9-1.1) 01/25/24 17:04 APTT 25 Seconds (21-31) 01/25/24 17:04 PTT Ratio 0.9 01/25/24 17:04 Sodium 139 mmol/L (136-145) 01/25/24 17:04 Potassium 4.4 mmol/L (3.5-5.1) 01/25/24 17:04 Chloride 106 mmol/L (98-107) 01/25/24 17:04 Carbon Dioxide 26 mmol/L (21-32) 01/25/24 17:04 Anion Gap 7 (3-11) 01/25/24 17:04 BUN 20 mg/dl (6-23) 01/25/24 17:04 Creatinine 0.61 mg/dl (0.6-1.2) 01/25/24 17:04 Est Cr Clr Drug Dosing 61.7 ml/min 01/25/24 17:04 Est GFR ( Amer) 94.5 ml/min 01/25/24 17:04 Est GFR (Non-Af Amer) 81.5 ml/min 01/25/24 17:04 BUN/Creatinine Ratio 32.8 (10-20) H 01/25/24 17:04 Glucose 121 mg/dl (70-99(Fasting)) H 01/25/24 17:04 Lactate 1.5 mmol/L (0.4-2.0) 01/25/24 17:04 Calcium 9.5 mg/dl (8.6-10.3) 01/25/24 17:04 Magnesium 2.2 mg/dl (1.7-2.4) 01/25/24 17:04 Total Bilirubin 0.6 mg/dl (0.2-1.0) 01/25/24 17:04 AST 48 U/L (13-39) H 01/25/24 17:04 ALT 42 U/L (7-52) 01/25/24 17:04 Alkaline Phosphatase 122 U/L (34-104) H 01/25/24 17:04 Total Creatine Kinase 15 U/L (26-192) L 01/25/24 19:34 Troponin I High Sens 42.1 pg/ml (0-14) H D 01/25/24 19:34 Total Protein 6.7 gm/dl (6.0-8.3) 01/25/24 17:04 Albumin 3.4 gm/dl (3.4-5.0) 01/25/24 17:04 Globulin 3.3 gm/dl (2.5-4.0) 01/25/24 17:04 Albumin/Globulin Ratio 1.0 (0.9-2) 01/25/24 17:04 TSH 2.144 uIu/ml (0.300-4.500) 01/25/24 17:04 Urine Color Yellow 01/25/24 18:05 Urine Appearance Clear (Clear) 01/25/24 18:05 Urine pH 5.5 (4.5-7.5) 01/25/24 18:05 Ur Specific [place] 1.012 (1.000-1.030) 01/25/24 18:05 Urine Protein Negative (Negative) 01/25/24 18:05 Urine Glucose (UA) Negative (Negative) 01/25/24 18:05 Urine Ketones Negative (Negative) 01/25/24 18:05 Urine Blood 2+ (Negative) H 01/25/24 18:05 Urine Nitrite Positive (Negative) A 01/25/24 18:05 Urine Bilirubin Negative (Negative) 01/25/24 18:05 Urine Urobilinogen Negative (Negative) 01/25/24 18:05 Ur Leukocyte Esterase Trace (Negative) H 01/25/24 18:05 Urine WBC (Auto) 1-5 /hpf (0-5) 01/25/24 18:05 Urine RBC (Auto) 5-10 /hpf (0-4) H 01/25/24 18:05 U Hyaline Cast (Auto) 1-5 /lpf (0-5) 01/25/24 18:05 U Epithel Cells (Auto) 5-10 /lpf (0-5) H 01/25/24 18:05 Urine Bacteria (Auto) 4+ (Negative) H 01/25/24 18:05 Nasal Screen MRSA (PCR) Negative (Negative) 01/25/24 22:49 Adenovirus (PCR) Not Detected (NotDetected) 01/25/24 18:05 B. pertussis DNA (PCR) Not Detected (NotDetected) 01/25/24 18:05 B.parapertussis DNA PCR Not Detected (NotDetected) 01/25/24 18:05 C. pneumoniae DNA (PCR) Not Detected (NotDetected) 01/25/24 18:05 Coronavirus OC43 (PCR) Not Detected (NotDetected) 01/25/24 18:05 Coronavirus HKU1 (PCR) Not Detected (NotDetected) 01/25/24 18:05 Coronavirus 229E (PCR) Not Detected (NotDetected) 01/25/24 18:05 SARS-CoV-2 (PCR) Not Detected (NotDetected) 01/25/24 18:05 Coronavirus NL63 (PCR) Not Detected (NotDetected) 01/25/24 18:05 Human Metapneumovir PCR Not Detected (NotDetected) 01/25/24 18:05 Influenza Type A (PCR) Not Detected (NotDetected) 01/25/24 18:05 Influenza Type B (PCR) Not Detected (NotDetected) 01/25/24 18:05 M. pneumoniae (PCR) Not Detected (NotDetected) 01/25/24 18:05 Parainfluenza 1 (PCR) Not Detected (NotDetected) 01/25/24 18:05 Parainfluenza 2 (PCR) Not Detected (NotDetected) 01/25/24 18:05 Parainfluenza 3 (PCR) Not Detected (NotDetected) 01/25/24 18:05 Parainfluenza 4 (PCR) Not Detected (NotDetected) 01/25/24 18:05 RSV (PCR) Not Detected (NotDetected) 01/25/24 18:05 Entero/Rhino (PCR) Not Detected (NotDetected) 01/25/24 18:05 Impressions Chest X-Ray 01/25/24 16:12 XR chest 1V portable HISTORY: weakness COMPARISON: Chest 11/18/2022. FINDINGS: No pneumothorax. No pleural effusions. The heart remains enlarged. There is a tortuous thoracic aorta again noted. Left basilar linear densities favor subsegmental atelectasis. Otherwise, no focal lung consolidations to suggest a pneumonia. No evidence for pulmonary edema. Degenerative changes within the shoulders. IMPRESSION: Mild cardiomegaly. Otherwise, no acute process within the chest. ACT 112: Negative or not required by law. Electronically signed by: Meng Evans M.D. 01/25/2024 5:[address] 01/25/24 16:[address] DOSE: 703.85 mGy.cm HISTORY: Progressive gait and balance. recent stroke, worse TECHNIQUE: Multiaxial CT images of the head were performed without the use of intravenous contrast. Automated exposure control was utilized for this study. A dose lowering technique was utilized adhering to the principles of ALARA. Comparison: Brain MRI 01/21/2024. Findings: The paranasal sinuses and mastoid air cells are clear. The calvarium and skull base are intact. White matter hypodensity is nonspecific but sug gestive of microvascular ischemic change. The ventricles and sulci demonstrate mild age-related involutional changes. Old left basal ganglia lacunar infarcts again noted. The punctate acute infarcts within the left coronary radiata on the prior brain MRI are not well visualized by this modality due to their small size. No new/large territory infarct identified. There is a single punctate density within the left frontal lobe on image 22 which is new from the prior study. This is indeterminate. A punctate focus of early hemorrhagic transformation is considered less likely but not entirely excluded. Impression: 1. The punctate acute infarcts within the left coronary radiata on the prior brain MRI are not well visualized by this modality due to their small size. No new/large territory infarct identified. 2. There is a new punctate hyperdense focus within the left frontal lobe which may correspond to the prior infarct at this location. Therefore, this raises the possibility of early hemorrhagic transformation. A 6 to [address] follow- up is recommended to ensure stability. ACT 112: Negative or not required by law. Electronically signed by: Meng Evans M.D. 01/25/2024 4:55 PM Shoulder X-Ray 01/25/24 16:24 RIGHT SHOULDER 3 VIEWS HISTORY: Right shoulder pain, poss injury COMPARISON: None. FINDINGS: There is no fracture or dislocation. Soft tissues are unremarkable. No radiopaque foreign bodies. The right clavicle is intact. There is moderate to severe osteoarthritis at the glenohumeral joint. IMPRESSION: 1. No fracture or dislocation within the right shoulder. 2. Moderate to severe osteoarthritis. ACT 112: Negative or not required by law. Electronically signed by: Meng Evans M.D. 01/25/2024 5:04 PM ECG Additional Comments: Study shows AF at 92bpm, RBBB present, RDY=144, YIt=751, no acute ischemic changes. Code Status & VTE Plan VTE Prophylaxis Plan VTE Prophylaxis will be ordered: Yes PG Care Time/CCT Total # of Minutes Spent Total Time Spent with Patient: Total time spent is greater than 50% in coordination of care (as documented) at patient's floor/unit and/or counseling patient: Coding Level of Care Code 77712 INT INP/OBS CARE 3/75MIN Diagnoses Recent cerebrovascular accident Z86.73 Acute UTI N39.0 Elevated troponin I level R79.89 Longstanding persistent atrial fibrillation I48.11 Atrial fibrillation type: longstanding persistent Constipation K59.00 (4) Atrial fibrillation Atrial fibrillation type: longstanding persistent Qualified Code(s): I48.11 - Longstanding persistent atrial fibrillation
[2024-01-25] MEDS: SODIUM CHLORIDE 0.9% 500 ML IV ONE (21:17)
[2024-01-25] MEDS ORDERED: bisacodyL 10 MG SUPP PR PRN (22:49)
[2024-01-25] MEDS ORDERED: POLYETHYLENE (MIRALAX) 17 GM PACK PO PRN (22:49)
[2024-01-25] MEDS ORDERED: ONDANSETRON INJ 2 MG/ML 2 ML VIAL IV PRN (22:49)
[2024-01-25] MEDS ORDERED: DICLOFENAC SOD 1% GEL 100 GM TUBE EXT PRN (22:49)
[2024-01-25] MEDS ORDERED: SOD PHOSPHATE/SOD BIPHOSPHATE ENEMA 132 ML BTL PR PRN (22:49)
[2024-01-25] MEDS ORDERED: ALBUTEROL HFA 8 GM INHALER INH PRN (22:49)
[2024-01-25] MEDS ORDERED: DOCUSATE SODIUM/SENNA 50/8.6MG TAB PO PRN (22:49)
[2024-01-25] MEDS: DOCUSATE SODIUM 100 MG CAP PO SCH (23:49)
[2024-01-25] MEDS: LIDOCAINE 5% 1 PATCH TD STA (23:49)
[2024-01-25] MEDS: ACETAMINOPHEN 325 MG TAB PO PRN (23:49)
[2024-01-25] MEDS: cefTRIAXone SODIUM 2,000 MG in DEXTROSE 5 % MINI-B 50 ML IV SCH (23:50)
[2024-01-26] MEDS: SODIUM CHLORIDE 0.9% 1,000 ML IV SCH (01:37)
--- NOTE | 2024-01-26 05:43 | CT Scan Report ---
Exam(s): CT HEAD Without Contrast EXAM: CT Head Without Intravenous Contrast CLINICAL HISTORY: Reason for exam: Assess for possible bleed. TECHNIQUE: Axial computed tomography images of the head/brain without intravenous contrast. Automated exposure control was utilized for the study. A dose lowering technique was utilized adhering to the principles of ALARA. COMPARISON: No relevant prior studies available. FINDINGS: Brain: There are hypodensities demonstrated within the periventricular and subcortical white matter of a mild to moderate degree. No hemorrhage. Ventricles: Unremarkable. No ventriculomegaly. Bones/joints: Unremarkable. No acute fracture. Soft tissues: Unremarkable. Vasculature: There are calcifications to the cavernous carotid and vertebrobasilar arterial system. Sinuses: Unremarkable as visualized. No acute sinusitis. Mastoid air cells: Unremarkable as visualized. No mastoid effusion. IMPRESSION: No acute findings in the head/brain. Electronically signed by: Jorje Li MD 01/26/24 05:42 AM
[2024-01-26 06:45] LABS: Hematocrit (blood only) 37.3 % (37.0-47.0); Hemoglobin 12.5 g/dl (12.0-16.0); Mean Corpuscular Hemoglobin 31.2 pg (25.0-34.0); Mean Corpuscular Hgb Conc 33.5 g/dL (32.0-36.0); Mean Platelet Volume 11.5 fL (9.4-12.4); Platelet Count 240 K/uL (130-400); RDW Coefficient of Variation 12.7 % (11.5-14.5); RDW Standard Deviation 43.8 fL (36.4-46.3); Red Blood Count 4.01 M/uL (4.20-5.40); White Blood Count 13.55 K/ul (4.8-10.8)
[2024-01-26 06:58] LABS: Albumin Level 3.3 gm/dl (3.4-5.0); BUN Creatinine Ratio 28.8 (10-20); Bilirubin Direct 0.1 mg/dl (0-0.2); Bilirubin,Total 0.5 mg/dl (0.2-1.0); Calcium 8.7 mg/dl (8.6-10.3); Creatinine Clr Calc Pharmacy 64.6 ml/min; Est GFR (African American) 95.5 ml/min; Est GFR (Non-African American) 82.4 ml/min; Potassium 3.9 mmol/L (3.5-5.1); Total Protein 6.1 gm/dl (6.0-8.3)
[2024-01-26] MEDS: FLUTICASONE/VILANTEROL 100/25MCG 14 PUFFS/INHALER INH SCH (07:40)
[2024-01-26] MEDS: UMECLIDINIUM BROMIDE 62.5MCG/BLISTER 7 PUFFS/INHALER INH SCH (07:40)
[2024-01-26] MEDS: AZELASTINE HCL 0.1% NASAL 200 SPRAYS/27,400 MCG BTL SCH (07:41)
[2024-01-26] MEDS: guaiFENesin 600 MG TABCR PO SCH (07:41)
[2024-01-26] MEDS: LORATADINE 10 MG TAB PO SCH (07:41)
[2024-01-26] MEDS: MONTELUKAST SODIUM 10 MG TABLET PO SCH (07:41)
[2024-01-26] MEDS: PSYLLIUM or GUAR GUM FIBER POWDER PACKET PO SCH (07:41)
--- NOTE | 2024-01-26 08:50 | Electrocardiogram Report ---
Test Reason : Blood Pressure : / mmHG Vent. Rate : 092 BPM Atrial Rate : 000 BPM P-R Int : 000 ms QRS Dur : 130 ms QT Int : 384 ms P-R-T Axes : 000 -27 -07 degrees QTc Int : 474 ms Atrial fibrillation Right bundle branch block Inferior infarct (cited on or before 21-JAN-2024) Abnormal ECG When compared with ECG of 21-JAN-2024 00:26, Questionable change in QRS axis Confirmed by Pako Yeung ([id number] on 01/26/2024 8:50:28 AM Referred By: REFERRED SELF Confirmed By:Irving Yeung
[2024-01-26] MEDS: MAGNESIUM HYDROXIDE SUSP 30 ML UDC PO SCH (09:06)
--- NOTE | 2024-01-26 11:41 | Hospitalist Progress Note ---
Date of Service January 26, 2024 Assessment & Plan (1) Recent cerebrovascular accident: Plan: 88yo female with history of atrial fibrillation on Eliquis anticoagulation, HTN and HLP returning to [facility] with worsening weakness in her RUE and RLE. Patient was recently admitted to [facility] from 01/21/24 - 01/23/24 after presenting with imbalance and ambulatory dysfunction. 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 No hemorrhagic transformation noted. Patient was continued on her Eliquis and ultimately discharged to [facility] on 01/23/24 for continued rehabilitation. She returned on 01/25/2024 with worsening strength and balance. - CT of the head without new or large territory infarct but notes a new punctate hyperdense focus in the left frontal lobe which may correspond to the prior infarct at this location -- Raises the possibility of early hemorrhagic transformation, however, repeat CT revealed no hemorrhage or acute findings. - Her strength in the RUE and RLE is decreased when compared to prior admission. Suspect this is secondary to stroke recrudescence in the setting of acute UTI rather than hemorrhagic conversion or new ischemic event -Will hold Eliquis during this hospitalization, can restart in one week -Continue Atorvastatin 40mg po daily. CK and LFTs checked and are WNL. (2) Acute UTI: Plan: Patient with acute UTI. Elevated HR on admission - variable in setting of AF with rate of 80's - 110's. Leukocytosis with WBC=14.28. UA appears grossly infected. Prior cultures positive for de la cruz-sensitive E.coli. Technically meets sepsis criteria, present on admission. Patient has received 1L NSS in the ER thus far. Will administer additional l iter. Cautious fluid administration given patient's advanced age. -Follow cultures sent from the ER -Ceftriaxone 2gm IV daily -NSS at 125mL/hr x 1L (3) Elevated troponin I level: Plan: Noted. Initial troponin= 92 with repeat --> 42. Patient denies chest pain Most likely secondary to demand ischemia (4) Atrial fibrillation: Plan: Chronic. Patient on Apixaban anticoagulation. -Holding Apixaban for now pending repeat head CT to rule out hemorrhagic co nversion -HR currently 87bpm -Can hold Eliquis for 1 week, then restart (5) Constipation: Plan: Patient reports ongoing constipation. No abdominal pain at present -Continue Psyllium and mild of magnesium -Continue Colace BID -Miralax, enema, Senokot, Dulcolax CO PRN Insomnia -Melatonin 9mg po qHS PRN -Alprazolam 0.5mg po qHS PRN Shoulder pain/back pain -Lidoderm patch -Voltaren gel PRN Head bump -Warm compresses Plan CODE STATUS: Full code Admission and Anticipated Discharge Date Admission Date: January 25, 2024 Subjective Patient seen and evaluated at bedside. She reports feeling weak and tired because she did not get good sleep last night. She had difficulty expressing her feelings and a delayed train of thought, however, her speech was clear and she was not confused. She became progressively emotional throughout our discussion and repeated stated that "the hospital just wants to get rid of me." Patient denies complaints other than being weak and tired, however, a full review of systems was not completed due to the patient getting emotional and requesting I come back later. When the son came to visit, I addressed his concerns, questions, and the plan moving forward. He expressed how he would feel much more comfortable if his [facility] The patient seemed more comfortable with her son present. She did report that she had no complaints at this time other than the weakness and tiredness. I met with her son multiple times throughout the day to discuss the course of action with his mother. I believe she is ready from a medical standpoint, however, she and the son do not seem agreeable to leaving right now from her statements of requesting "additional further work- ups." [facility] has accepted the patient back and I plan on her being discharged tomorrow pending no problems throughout the night. Physical Exam Physical Exam: General: No acute distress, nondiaphoretic, well-developed, well-nourished. Resting comfortably in bedside chair. Skin: The skin was warm, dry, without rashes, erythema, edema. Some bruising on forearms. Cardiac: Irregularly irregular without murmurs gallops or rubs. Pulm: Clear to auscultation bilaterally without wheezes, rales or rhonchi. No retractions or accessory muscle use. Abdominal: Positive bowel sounds x 4. Soft, nontender, without masses or organomegaly. No guarding or rebound tenderness. Neuro: A&O x3. No focal neurological deficits. Emotional. Difficulty expressing words/thoughts, but clear speech. No signs of facial droop. MS diminished in RLE 4/5, LLE 5/5. MS diminished in RUE 4/5, LUE 5/5. Results & Data Results & Data Vital Signs (Past 12 Hours) Vital Signs Temp Pulse Pulse Resp BP BP Pulse Ox 01/26/24 10:54 36.8 C 98 H 17 130/88 98 01/26/24 07:12 36.8 C 86 17 138/78 97 01/26/24 03:14 36.6 C 84 18 133/91 96 01/26/24 03:11 88 01/26/24 00:30 87 16 128/67 98 01/26/24 00:00 96 H 19 149/92 H 01/26/24 00:00 106 H O2 Del Method 01/26/24 10:54 Room Air 01/26/24 07:12 Room Air 01/26/24 03:14 Room Air 01/26/24 03:11 01/26/24 00:30 01/26/24 00:00 01/26/24 00:00 Laboratory Results Reviewed CBC Reviewed CMP Reviewed head CT Diagnostic Findings Head CT 01/26/2024: Findings: [place] are hypodensities demonstrated within the periventricular and subcortical white matter of the mild to moderate degree. No hemorrhage. Impression: No acute findings in the head/brain. PG Care Time/CCT Total # of Minutes Spent Total Time Spent with Patient: Total time spent is greater than 50% in coordination of care (as documented) at patient's floor/unit and/or counseling patient: Prolonged Care Time Prolonged Care Time: Yes Total Prolonged Care Time: 60 I personally met with the patient's son multiple times in person today to discuss his concerns, questions, and plans moving forward. In total this took about 60 minutes. Coding Level of Care Code 57493 SUB INP/OBS CARE 350MIN Diagnoses Recent cerebrovascular accident Z86.73 Acute UTI N39.0 Elevated troponin I level R79.89 Longstanding persistent atrial fibrillation I48.11 Atrial fibrillation type: longstanding persistent Constipation K59.00 Additional Codes Prolonged Care Time - Prolonged Care Time: Yes ([id number]) (4) Atrial fibrillation Atrial fibrillation type: longstanding persistent Qualified Code(s): I48.11 - Longstanding persistent atrial fibrillation
[2024-01-26] MEDS: PRAVASTATIN SOD 40 MG TAB PO SCH (16:32)
[2024-01-26] MEDS: MELATONIN 3 MG TAB PO PRN (22:07)
[2024-01-26] MEDS: ALPRAZolam 0.5 MG TABLET PO PRN (22:07)
[2024-01-27 06:50] LABS: Hematocrit (blood only) 35.6 % (37.0-47.0); Hemoglobin 12.1 g/dl (12.0-16.0); Mean Corpuscular Hemoglobin 31.3 pg (25.0-34.0); Platelet Count 222 K/uL (130-400); RDW Coefficient of Variation 12.8 % (11.5-14.5); RDW Standard Deviation 43.2 fL (36.4-46.3); Red Blood Count 3.87 M/uL (4.20-5.40); White Blood Count 13.24 K/ul (4.8-10.8)
[2024-01-27 07:11] LABS: Calcium 8.6 mg/dl (8.6-10.3); Est GFR (African American) 97.2 ml/min; Est GFR (Non-African American) 83.8 ml/min; Potassium 4.2 mmol/L (3.5-5.1)
--- NOTE | 2024-01-27 16:25 | Hospitalist Progress Note ---
Date of Service January 27, 2024 Assessment & Plan (1) Recent cerebrovascular accident: Plan: Patient was recently admitted to [facility] from 01/21/24 - 01/23/24 after presenting with imbalance and ambulatory dysfunction. 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 No hemorrhagic transformation noted. -- Patient was continued on her Eliquis and ultimately discharged to [facility] on 01/23/24 for continued rehabilitation. She returned on 01/25/2024 with worsening strength and balance. - CT of the head without new or large territory infarct but notes a new punctate hyperdense focus in the left frontal lobe which may correspond to the prior infarct at this location -- Raises the possibility of early hemorrhagic transformation, however, repea t CT revealed no hemorrhage or acute findings. - Her strength in the RUE and RLE is decreased when compared to prior admission. Suspect this is secondary to stroke recrudescence in the setting of acute UTI rather than hemorrhagic conversion or new ischemic event -Will hold Eliquis during this hospitalization, can restart in one week -Continue Atorvastatin 40mg po daily. CK and LFTs checked and are WNL. -Patient remains agitated and frustrated with the current situation -- Zyprexa 2.5 mg Q8 Hr PRN (2) Acute UTI: Plan: Patient with acute UTI. Elevated HR on admission - variable in setting of AF with rate of 80's - 110's. Leukocytosis with WBC=14.28. UA appears grossly infected. Prior cultures positive for de la cruz-sensitive E.coli. Technically meets sepsis criteria, present on admission. Patient has received 1L NSS in the ER thus far. Will administer additional liter. Cautious fluid administration given patient's advanced age. Urine culture from 01/25/2024 positive for pansensitive Klebsiella pneumoniae -Continue ceftriaxone 2gm IV daily (3) Elevated troponin I level: Plan: Noted. Initial troponin= 92 with repeat --> 42. Patient denies chest pain Most likely secondary to demand ischemia (4) Atrial fibrillation: Plan: Chronic. Patient on Apixaban anticoagulation. -Holding Apixaban for now pending repeat head CT to rule out hemorrhagic conversion -Can hold Eliquis for 1 week, then restart -Was scheduled to have a cardioversion performed 01/21/2024, but postponed due to recent stroke (5) Constipation: Plan: Patient reports ongoing constipation. No abdominal pain at present -Continue Psyllium and mild of magnesium -Continue Colace BID -Miralax, enema, Senokot, Dulcolax ND PRN Insomnia -Melatonin 9mg po qHS PRN -Alprazolam 0.5mg po qHS PRN Shoulder pain/back pain -Lidoderm patch -Voltaren gel PRN Plan CODE STATUS: Full code Admission and Anticipated Discharge Date Admission Date: January 25, 2024 Subjective Patient seen and evaluated at bedside. She continues to be frustrated with her weakness and difficulty expressing her thoughts. I had multiple conversations with her son again today. He is agreeable to the patient going back to [facility] for continued rehab tomorrow, 01/28/24. Physical Exam Physical Exam: General: No acute distress, nondiaphoretic, well-developed, well-nourished. Resting comfortably in bed. Skin: The skin was warm, dry, without rashes, erythema, edema. Some bruising on forearms. Cardiac: Irregularly irregular without murmurs gallops or rubs. Pulm: Clear to auscultation bilaterally without wheezes, rales or rhonchi. No retractions or accessory muscle use. Abdominal: Positive bowel sounds x 4. Soft, nontender, without masses or organomegaly. No guarding or rebound tenderness. Neuro: A&O x3. No focal neurological deficits. Emotional. Difficulty expres sing words/thoughts, but clear speech. No signs of facial droop. MS diminished in RLE 4/5, LLE 5/5. MS diminished in RUE 4/5, LUE 5/5. Results & Data Results & Data Vital Signs (Past 12 Hours) Vital Signs Temp Pulse Pulse Resp BP Pulse Ox O2 Del Method 01/27/24 15:36 37.3 C 98 H 20 153/93 H 96 Room Air 01/27/24 14:00 87 01/27/24 10:07 36.8 C 90 14 131/77 95 Room Air 01/27/24 08:00 Room Air 01/27/24 07:26 37.1 C 100 H 14 136/86 93 Room Air 01/27/24 07:00 103 H Laboratory Results Reviewed CBC Reviewed BMP Reviewed urine culture pansensitive Klebsiella pneumoniae PG Care Time/CCT Total # of Minutes Spent Total Time Spent with Patient: Total time spent is greater than 50% in coordination of care (as documented) at patient's floor/unit and/or counseling patient: Coding Level of Care Code 01962 SUB INP/OBS CARE 50MIN Diagnoses Recent cerebrovascular accident Z86.73 Acute UTI N39.0 Elevated troponin I level R79.89 Longstanding persistent atrial fibrillation I48.11 Atrial fibrillation type: longstanding persistent Constipation K59.00 (4) Atrial fibrillation Atrial fibrillation type: longstanding persistent Qualified Code(s): I48.11 - Longstanding persistent atrial fibrillation
[2024-01-27] MEDS ORDERED: OLANZAPINE 2.5 MG TAB PO PRN (17:18)
[2024-01-28 06:51] LABS: Hematocrit (blood only) 38.6 % (37.0-47.0); Hemoglobin 13.1 g/dl (12.0-16.0); Mean Corpuscular Hemoglobin 31.2 pg (25.0-34.0); Mean Corpuscular Hgb Conc 33.9 g/dL (32.0-36.0); Mean Corpuscular Volume 91.9 fL (80.0-100.0); Mean Platelet Volume 11.6 fL (9.4-12.4); Platelet Count 221 K/uL (130-400); RDW Coefficient of Variation 12.7 % (11.5-14.5); RDW Standard Deviation 42.5 fL (36.4-46.3); White Blood Count 14.64 K/ul (4.8-10.8)
[2024-01-28 07:15] LABS: BUN Creatinine Ratio 26.2 (10-20); Creatinine Clr Calc Pharmacy 62.3 ml/min; Est GFR (African American) 94.5 ml/min; Est GFR (Non-African American) 81.5 ml/min; Potassium 4.1 mmol/L (3.5-5.1)
--- NOTE | 2024-01-28 14:59 | Discharge Summary ---
Date of Service January 28, 2024 Admission HPI Per Admitting Provider Hiwot Davis is an 88yo female with history of atrial fibrillation on Eliquis anticoagulation, HTN, HLP presenting with worsening RUE and RLE weakness and decreased mobility. Patient presented to [facility] on 01/21/24 with report of gait instability. She was found to have an acute ischemic stroke thought to be embolic in appearance. She was ultimately discharged to [facility] on 01/23/24. She was continued on her Eliquis anticoagulation. Pravastatin was initiated during her hospital stay. Patient returns with concern for continued decrease in function - specifically weakness of the RUE and RLE. She reports that she has difficulty with ambulation and transfers. She reports being constipated and has been unable to get up and use the commode due to decreased mobility. Additionally she reports some subjective fevers and chills as well as mild dysuria and some generalized weakness. She reports constipation as well and is unsure if she had been getting her bowel medication during her hospital stay. Last BM was 2 days ago. No complaint of chest pain or palpitations. Patient with stable baseline SOB which is unchanged today. In the ER she is afebrile, atrial fibrillation with HR ranging 89-107, adequate oxygenation on room air ER Course: NSS x 1L Cefepime 2gm Admission Exam Per Admitting Provider General: elderly female patient resting comfortably, NAD, non-toxic in appearance, AA&O x 4 Skin: warm, dry, intact, no rashes or lesions, some bruising on forearm. Patient with small pustule present on right forehead in hairline, no drainage/bleeding/cellulitis. Does not appear like a bite HEENT: NC/AT, PERRL, EOMI, anicteric sclera, conjunctiva without injection, external ear normal to inspection and nontender, nares patent, moist mucus membranes, dentition intact, no oropharyngeal lesions, neck supple, trachea midline, no LAD, no thyromegaly, no JVD Heart: +S1/S2, irregularly irregular, no m/r/g Lungs: equal air entry bilaterally, no rales/rhonchi/wheezes Abd: +BS, soft, NT/ND, no masses/organomegaly/ascites Ext: warm, 2+ pulses in UE/LE bilaterally, no clubbing/cyanosis or edema Neuro: AA&O x 4, pleasant and cooperative, answers questions appropriately, no facial droop, CN II - XII grossly intact with poor hearing bilaterally (baseline), sensation to light touch intact bilaterally, MS diminished in RLE 4/5, LLE 5/5. MS diminished in RUE 4/5, LUE 5/5. Patient with a lot of pain at the right shoulder Principal Diagnosis Recent cerebrovascular accident Acute urinary tract infection Discharge Exam General: No acute distress, nondiaphoretic, well-developed, well-nourished. R esting comfortably in bedside chair. Skin: The skin was warm, dry, without rashes, erythema, edema. Some bruising on forearms. Cardiac: Irregularly irregular without murmurs gallops or rubs. Pulm: Clear to auscultation bilaterally without wheezes, rales or rhonchi. No retractions or accessory muscle use. Abdominal: Positive bowel sounds x 4. Soft, nontender, without masses or organomegaly. No guarding or rebound tenderness. Neuro: A&O x3. No focal neurological deficits. More positive affect today. Difficulty expressing words/thoughts, but clear speech. No signs of facial droop. MS diminished in RLE 4/5, LLE 5/5. MS diminished in RUE 4/5, LUE 5/5. Discharge Data Allergies Allergy/AdvReac Type Severity Reaction Status Date / Time nickel Allergy Intermediate Rash Verified 01/25/24 18:14 Consultations 01/25/24 19:25 ED Decision to Admit Stat Ordered Studies 01/25/24 16:13 CT head/brain wo con Stat 01/26/24 04:00 CT head/brain wo con DAILY Hospital Course (1) Recent cerebrovascular accident: Patient was recently admitted to [facility] from 01/21/2024 - 01/23/2024 for left-sided CVA thought to be embolic in nature. No hemorrhagic transformation noted at that time. She was continued on her Eliquis and discharged to [facility] for continued rehabilitation. - She returned on 01/25/2024 with worsening strength and balance. - CT of the head showed findings consistent with prior infarct in the left frontal lobe -- Concern for early hemorrhagic transformation, however, repeat CT revealed no hemorrhage or acute findings -- Suspect decreased RUE and RLE strength is secondary to stroke recrudescence in the setting of acute UTI rather than hemorrhagic conversion or new ischemic event Held Eliquis during this hospitalization, can restart in one week (resume 02/01/2024) -Patient intermittently agitated and frustrated, given Zyprexa while in hospital which seemed to help -Transferred back to [facility] for continuation of rehab (2) Acute UTI: - UA appeared grossly infected on presentation - Prior cultures positive for de la cruz-sensitive E.coli. - Urine culture from 01/25/2024 positive for pansensitive Klebsiella pneumoniae, received Ceftriaxone in hospital and continued on Augmenting upon discharge (3) Elevated troponin I level: Noted. Initial troponin= 92 with repeat --> 42. Patient denies chest pain Most likely secondary to demand ischemia (4) Atrial fibrillation: Chronic. Patient on Apixaban anticoagulation. - Held Eliquis during this hospitalization, can restart in one week (resume 02/01/2024) - Was scheduled to have a cardioversion performed on 01/21/2024, but postponed due to recent stroke Plan CODE STATUS: Full code Total Time Total Time Spent Total Time Spent (In Minutes): Greater than 30 minutes spent completing this discharge process including direct patient care, medication reconciliation, documentation, review of labs and images, and coordination of care. Discharge Plan Discharge Items Patient Disposition: Transfer Acute Care Hospital Reason For Visit: INCREASED RIGHT SIDED WEAKNESS Discharge Diagnosis: Recent cerebrovascular accident (CVA) Acute urinary tract infection (UTI) Condition on Discharge: Fair Activity: As commented below Activity Comment: Follow the activity recommendations per [facility] Non-emergency contact: Primary Care Provider Call non-emergency contact if: you have any medication questions and your symptoms worsen Follow-up/Referrals: Nae Borrego MD [Primary Care Provider] - Diet: Heart Healthy Addtl Attending Provider Instructions: You were admitted to the hospital due to decreased strength in your right upper and lower extremities, as well as a urinary tract infection (UTI). You had repeat CT scans of your head, which revealed no hemorrhage or acute findings. The decreased strength in your right upper and lower extremities is most likely due to stroke recrudescence in the setting of an acute UTI. While in the hospital, you received IV antibiotics to treat the UTI. Upon discharge from the hospital: * You are being transferred to [facility] this is a rehabilitation hospital. * You are prescribed Augmentin (an oral antibiotic) for your UTI. -- Please take Augmentin twice daily for 4 days. -- It is important to complete this course of antibiotics, even if you feel better/have no symptoms. -- The infection may not go away fully and return if you stop taking the antibiotic too soon. Please return to the hospital if you experience any of the following: Chest pain, shortness of breath, fever, sudden loss of balance or coordination, visual changes in 1 or both eyes, facial drooping, or fainting. Pending Studies at Discharge: No Stand-Alone Forms: My [facility] Skilled Items Patient informed of condition?: Yes DNR: No Discharge Level of Care: Acute rehab Communicable Disease: No Discharge Prognosis: Stable Lines: None Urinary Catheter: No Medications and DC Order Prescriptions: New olanzapine 2.5 mg Tablet 2.5 mg PO Q8H PRN (Reason: agitation) Qty: 30 0RF amoxicillin-pot clavulanate [Augmentin] 500-125 mg tablet 1 tab PO BID Qty: 8 0RF Continued albuterol sulfate [Ventolin HFA] 90 mcg/actuation HFA aerosol inhaler 2 puff INHALATION QID PRN (Reason: Shortness Of Breath) Qty: 8.5 5RF Rx Instructions: CFC FREE alprazolam 0.25 mg tablet 0.25 mg PO HS PRN (Reason: insomnia) Qty: 45 0RF Rx Instructions: Take 1- 1.5 tabs QHS prn insomnia Ongoing therapy Supervising physician Nae Borrego MD [facility] [id number] montelukast [Singulair] 10 mg tablet 10 mg PO QAM Qty: 90 3RF guaifenesin [Mucinex] 1,200 mg Tablet Extended Release 12hr 1,200 mg PO QAM calcium carbonate-vitamin D3 [Calcium 500 + D] 500 mg(1,250mg) -200 unit Tablet 1 tab PO QAM azelastine 137 mcg (0.1 %) Aerosol,[place] 1 spray INTRANASAL BID Rx Instructions: administer into each nostril alendronate [Fosamax] 70 mg tablet 70 mg PO WK Rx Instructions: SATURDAYS Incruse Ellipta 62.5 mcg/actuation blister with device 1 inh inhalation QAM melatonin 3 mg Tablet 3 mg PO HS PRN (Reason: sleep) Qty: 30 0RF acetaminophen [Tylenol] 325 mg Tablet 650 mg PO Q4H PRN (Reason: Pain) ondansetron HCl 4 mg Tablet 4 mg PO Q4H PRN (Reason: NAUSEA/VOMITING) sennosides-docusate sodium [Senokot-S] 8.6-50 mg Tablet 1 tab-cap PO QDL PRN (Reason: Constipation) psyllium Packet 1 packet PO HS Rx Instructions: mix into at least 8 oz of water or juice before administering magnesium hydroxide [Milk of Magnesia] 400 mg/5 mL Suspension 30 ml PO DAILY PRN (Reason: Constipation) bisacodyl 10 mg Suppository 10 mg OK DAILY PRN (Reason: Constipation) Fleet Enema 19-7 gram/118 mL Enema 118 ml OK DAILY PRN (Reason: Constipation) docusate sodium 100 mg Capsule 100 mg PO BID polyethylene glycol 3350 [Miralax] 17 gram/dose Powder 17 g PO QDL PRN (Reason: Constipation) loratadine [Claritin] 10 mg Tablet 10 mg PO DAILY fluticasone furoate-vilanterol [Breo Ellipta] 100-25 mcg/dose Blister With Device 1 inh INHALATION DAILY magnesium oxide 400 mg magnesium Tablet 200 mg PO BID pravastatin 40 mg tablet 40 mg PO QDD amoxicillin 500 mg tablet 2,000 mg PO DIRECTED PRN (Reason: PRIOR TO DENTAL PROCEDURES) Rx Instructions: 4 tabs 1 hour prior to procedure Held Eliquis 5 mg tablet 5 mg PO BID Qty: 180 2RF Hold Instructions: Resume on 02/01/24. Discharge Orders: Discharge Order (Routine); Ordered 01/28/24 Ordered By: Deloris Moon/Other Patient Handouts: [facility] ([facility]NF), What Is Ischemic Stroke?, Stroke: Resources and Support, Stroke: Self-Care, Urinary Tract Infections in Women, Stroke Prevention For Caregiver, Stroke Stop Another Health Tips, ED Walker Use, ED Fall Prevention Admission Data Admit Date/Time: 01/25/24 20:18 Attending Provider: Holland Mcrae Admit Provider: Angeles Schilling Primary Care Provider: Nae Borrego Other Providers: Angeles Schilling; [facility] Other Interventions: Discharge Summary Assessment (RN) Last Done: 01/28/24 11:54 Coding Level of Care Code INP/OBS EV SAME DAY LV 3,85MIN Diagnoses Recent cerebrovascular accident Z86.73 Acute UTI N39.0 Elevated troponin I level R79.89 Longstanding persistent atrial fibrillation I48.11 Atrial fibrillation type: longstanding persistent
== END 2024-01-28 13:31 | disposition short-term general hospital (02) ==
LOC: EDINP 15:34 → ED 15:34 → SUATTDRO 20:18 → 2N 01-26 02:08